=== PATIENT | male | born 1965 | race Caucasian/White ===

== ENCOUNTER 2020-07-23 08:28 | Outpatient (REF) | payer MEDICAID, SELFPAY ==
--- NOTE | 2020-07-23 08:30 | EMG_ITS ---
HISTORY OF PRESENT ILLNESS: This is a 55-year-old with a 6-year history of bilateral upper extremity pain, numbness, and tingling with the right side being worse than the left. He is not diabetic. PHYSICAL EXAMINATION: On examination, he is alert and oriented with normal intellectual functions. Cranial nerves II through XII are normal. Muscle tone and strength are normal in all 4 extremities. Deep tendon reflexes symmetrical, 2+, plantar responses flexor. No Tinel or Phalen sign. IMPRESSION: Rule out carpal tunnel syndrome. NERVE CONDUCTION EMG STUDY: Early carpal tunnel syndrome on the right. Otherwise normal study. Normal EMG of the right C5-T1 innervated muscles. MD GRACIE Ku/VEL / [id number]
== END 2020-07-23 08:29 | disposition home or self-care (01) ==
LOC: HO.NEURO 08:28
PROVIDERS: Visit Provider General Practice
DX: M25.541 Pain in joints of right hand (principal); M25.542 Pain in joints of left hand; M54.2 Cervicalgia; R29.898 Other symptoms and signs involving the musculoskeletal system
CPT/HCPCS: 95860; 95913

== ENCOUNTER 2020-08-05 10:22 | Outpatient (REF) | payer MEDICAID, SELFPAY | END 2020-08-05 10:23 | disposition home or self-care (01) | LOC: HO.LAB 10:22 | PROVIDERS: Visit Provider Internal Medicine | DX: Z20.828 Contact with and (suspected) exposure to other viral communicable diseases (principal) | CPT/HCPCS: 87635 ==

== ENCOUNTER → 2020-09-22 09:37 | Outpatient (BNVA) | payer MEDICAID, SELFPAY | PROVIDERS: PCP Nurse Practitioner Family; Referring Provider Nurse Practitioner Family; Visit Provider Anesthesiology | DX: G89.29 Other chronic pain (principal); M25.511 Pain in right shoulder; M47.812 Spondylosis without myelopathy or radiculopathy, cervical region; M50.30 Other cervical disc degeneration, unspecified cervical region | CPT/HCPCS: 99212 ==

== ENCOUNTER 2020-09-24 14:42 | Outpatient (REF) | payer MEDICAID, SELFPAY | END 2020-09-24 14:43 | disposition home or self-care (01) | LOC: HO.LAB 14:42 | PROVIDERS: PCP Nurse Practitioner Family; Visit Provider Internal Medicine | DX: Z20.828 Contact with and (suspected) exposure to other viral communicable diseases (principal) | CPT/HCPCS: C9803; U0003 ==

== ENCOUNTER 2020-10-01 07:38 | Outpatient (REF) | payer MEDICAID, SELFPAY ==
--- NOTE | 2020-10-01 07:40 | MR_ITS ---
EXAMINATION: MR CERVICAL SPINE WITHOUT CONTRAST CLINICAL INFORMATION: Right shoulder and arm pain. Neck pain. COMPARISON: X-ray cervical spine from 06/24/2020 TECHNIQUE: MRI of the cervical spine was obtained using routine sequences without contrast. Limited study with motion artifacts. FINDINGS: VERTEBRAL BODIES AND PARASPINAL SOFT TISSUES: There is severe disc space narrowing with endplate spurring at the C5-C6 and C6-C7 levels with mild endplate edematous changes as well. No compression fractures identified. There are mild posterior subluxations at both aforementioned levels. Minimal anterolisthesis noted at C7-T1. There is a leftward curvature of the lower cervical spine. The paraspinal soft tissues are unremarkable. The imaged lung apices are grossly clear. CERVICOMEDULLARY JUNCTION AND VISUALIZED POSTERIOR FOSSA: The craniovertebral junction and imaged portions of the brain parenchyma appear normal. No cord signal abnormality or syrinx is seen. SPINAL LEVELS: C2-C3: Mild posterior disc bulge evident without central canal stenosis. Bwuq-xx-hzstfbml facet arthropathy evident. Very mild left foraminal narrowing. C3-C4: Minimal annular bulge without central canal stenosis or significant foraminal encroachment. Pplbksre-av-hjslrs left-sided hypertrophic facet arthropathy. C4-C5: Mild disc bulge and small annular fissure evident with slight impression upon the ventral thecal sac. No central canal stenosis. Mild left foraminal narrowing and facet arthropathy, more so on the left side. C5-C6: Retrosubluxation and broad-based disc-osteophyte complex with severe right foraminal encroachment and uhnvvncg-jw-zuqmun left foraminal narrowing. No significant central canal stenosis. C6-C7: Retrosubluxation and broad-based disc-osteophyte complex without central canal stenosis. Significant bilateral foraminal narrowing. C7-T1: Minimal anterolisthesis and unroofing of the disc with moderate left-sided facet arthropathy and mild left foraminal encroachment. No central canal stenosis. MR/MR cervical spine wo con IMPRESSION: Zvfpkpsb-la-ncivhv degenerative disc disease at C5-C6 and C6-C7 with significant bilateral foraminal narrowing and mild retrosubluxations. No central canal stenosis.
== END 2020-10-01 07:39 | disposition home or self-care (01) ==
LOC: HO.MRI 07:38
PROVIDERS: Visit Provider Anesthesiology
DX: M47.812 Spondylosis without myelopathy or radiculopathy, cervical region (principal); M50.30 Other cervical disc degeneration, unspecified cervical region
CPT/HCPCS: 72141

== ENCOUNTER → 2020-10-09 13:32 | Outpatient (BNVA) | payer MEDICAID, SELFPAY | PROVIDERS: PCP Nurse Practitioner Family; Visit Provider Surgery Vascular Surgery | DX: M25.511 Pain in right shoulder (principal) | CPT/HCPCS: 99202 ==

== ENCOUNTER 2020-10-17 10:00 | Outpatient (RCR) | payer MEDICAID, SELFPAY | END 2020-11-25 14:21 | disposition other institution (70) | LOC: HO.PT 10:00 | PROVIDERS: PCP Nurse Practitioner Family; Visit Provider Nurse Practitioner Family | DX: M25.511 Pain in right shoulder (principal); G89.29 Other chronic pain | CPT/HCPCS: 97033; 97110; 97140; 97162 ==

== ENCOUNTER → 2020-10-21 09:37 | Outpatient (BNVA) | payer MEDICAID, SELFPAY | PROVIDERS: PCP Nurse Practitioner Family; Visit Provider Surgery Vascular Surgery | DX: Z76.89 Persons encountering health services in other specified circumstances (principal) ==

== ENCOUNTER 2020-12-28 15:33 | Emergency (ER) | payer MEDICAID, SELFPAY ==
--- NOTE | 2020-12-28 | ECG_ITS ---
Test Reason : SHORTNESS OF BREATH Blood Pressure : / mmHG Vent. Rate : 063 BPM Atrial Rate : 063 BPM P-R Int : 138 ms QRS Dur : 088 ms QT Int : 410 ms P-R-T Axes : 066 066 072 degrees QTc Int : 419 ms Normal sinus rhythm Normal ECG No significant changes when compared with the previous EKG of 24 oct 2019 Referred By: Generic ED Physician Electronically Signed By:MARA CHRISTENSEN
--- NOTE | ~2020-12-28 | XR_ITS ---
EXAMINATION: XR CHEST CLINICAL INFORMATION: Chest pain COMPARISON: None TECHNIQUE: AP portable view of the chest was obtained. FINDINGS: No significant abnormality is noted involving the heart, lungs, mediastinum, bony thorax or soft tissues. XR/XR chest 1V IMPRESSION: No acute disease.
[2020-12-28 15:48] VITALS: BP 132/93; PULSE 90; RESP 18; TEMP 37.5; O2SAT 97; BMI 29.2
[2020-12-28 16:32] LABS: COVID-19 Test Positive (Negative)
--- NOTE | 2020-12-28 17:04 | ED_ITS ---
HPI - General Adult General Chief complaint: General Medical Stated complaint: WEAKNESS Time Seen by Provider: 12/28/20 16:02 Source: patient Mode of arrival: ambulatory Limitations: no limitations History of Present Illness HPI narrative: 55 yo male here with complaints of body aches, chills, subjective fevers, diarrhea, nausea, cough, chest wall pain with coughing x several days. No SOB, leg swelling or pain. Boss is COVID +. Related Data Home Medications Medication Instructions Recorded Confirmed levetiracetam 1,000 mg tablet 1,000 mg PO BID 09/22/20 Previous Rx's Medication Instructions Recorded albuterol sulfate 2 inh INHALATION Q4-6H PRN #1 ea 12/28/20 Allergies Allergy/AdvReac Type Severity Reaction Status Date / Time SEAFOOD Allergy Unknown SWELLING, Uncoded 06/26/20 19:46 THROAT CLOSES tramadol Allergy Unknown unknown Uncoded 09/22/20 10:09 Review of Systems Review of Systems: Yes all other systems are reviewed and are negative Constitutional: Constitutional: Reports no additional constitutional complaints, Reports body ache(s), Reports chills, Reports fever(s) (subjective ), Reports headache(s) and Denies weakness Eyes: Eyes: Reports no additional eye complaints and Denies change in vision ENT: Reports system reviewed and no additional complaints, except as documented, Denies dizziness, Reports headache(s), Denies nasal congestion, Denies nasal discharge and Denies neck pain Cardiovascular: Cardiovascular: Reports no additional cardiovascular complaints, Reports chest pain, Denies leg edema and Denies dyspnea Respiratory: Respiratory: Reports no additional respiratory complaints, Denies cough and Denies dyspnea Gastrointestinal: Gastrointestinal: Reports no additional gastrointestinal complaints, Denies abdominal pain, Reports diarrhea, Denies nausea and Denies vomiting Genitourinary: Genitourinary: Denies urinary incontinence Musculoskeletal: Musculoskeletal: Reports no additional musculoskeletal complaints, Denies back pain, Denies arthralgias, Denies joint swelling, Denies neck pain, Denies numbness and Denies tingling Integumentary/Breasts: Skin/Breast: Reports system reviewed and no additional complaints, except as docu and Denies rash Neurologic: Reports system reviewed and no additional complaints, except as documented, Denies Abnormal speech present, Denies dizziness, Reports headache(s), Denies numbness, Denies tingling and Denies weakness COUNTS INCLUDE 234 BEDS AT THE [facility] Past Medical History Attestation statement: The following information was validated with the patient. Source: old records reviewed and nursing notes reviewed Medical History Degeneration of intervertebral disc of cervical spine without disc herniation Degenerative disc disease, cervical Epilepsy Spondylosis of cervical spine Thoracic outlet syndrome of right thoracic outlet Social History Social History Smoking Status: Current some day smoker Tobacco Type: Cigarette Advance Directives: No Advance Directives Information Provided: No Physical Exam Vital Signs: Vital Signs: Last Vital Signs Temp 99.5 F 12/28/20 15:48 Pulse 90 12/28/20 15:48 Resp 18 12/28/20 15:48 BP 132/93 H 12/28/20 15:48 Pulse Ox 97 12/28/20 15:48 Body Mass Index 29.2 Const: General: cooperative, healthy appearing, comfortable and no acute distress Orientation/consciousness: patient oriented x3 Limitations: no limitations HENMT: Head: Yes normal to inspection Ears: hearing grossly normal bilaterally General nose exam: Normal external nose present Face and sinus: Yes normal facial exam Mouth: Normal oral and palatal mucosa present Throat: Yes posterior oropharynx normal Eyes: General: appearance normal, both eyes and all related structures Pupils: Equal, round and reactive pupils present Neck: Neck: Yes normal visual inspection Chest: Chest palpation & inspection: normal inspection of the chest Resp: Effort & Inspection: normal respiratory effort Auscultation: clear to auscultation bilaterally Cardio: Other: chest wall discomfort with coughing, tender to palp Rate: regular rate Rhythm: regular rhythm Peripheral pulses: Peripheral pulses 2+ throughout GI: Inspection: Yes normal to inspection Palpation (GI): Soft to palpation and nontender Auscultation: normal bowel sounds Back/Spine/Pelvis: Thoracic/Lumbar Spine: thoracic and lumbar spine normal to inspection Skin: General skin exam: no rashes or lesions noted Neuro: General: patient oriented x3, no focal motor deficits and normal sensation to monofilament Cranial nerves: Yes Equal, round and reactive pupils present Cognition (Neuro): normal cognition Speech: No Abnormal speech present Gait exam (Neuro): Normal gait present Motor exam (neuro): 5/5 motor strength present throughout Extrem: General: Yes normal to inspection, Yes no pedal edema and Yes no calf tenderness Course Course Course Narrative: 55 yo male with flu like symptoms x 1 week. +covid exposure at work. Well appearing, stable vital signs. Will check COVID screen, CXR, EKG. 1705-Covid +. CXR unremarkable. EKG shows no ischemic changes. PERC score 1 for age. Reviewed worrisome signs/symptoms with patient and when to return to ED. Comfortable with discharge home. Medical Decision Making Medical Records Medical records reviewed: Yes I reviewed the patient's medical records. Lab Data Lab results reviewed: Yes I reviewed the patient's lab results. Labs: Lab Results 12/28/20 Range/Units 15:59 COVID-19 (CLEM) Positive A (Negative) COVID-19 Clin Com See Note Imaging Data Chest x-ray: Attestation: I personally reviewed and interpreted this imaging study as follows: Radiologist's impression: [address] [id number] ReportSigned Patient: Ministerio Hernandez AMR#: [id number]: 1965Acct:[id number]/Sex: 55 / MADM Date: 12/28/20Loc: HO.EDAttending Dr: Ordering Physician: Masha ED Physician Date of Service: 12/28/20 Procedure(s): XR chest 1V Accession Number(s): [id number] cc: Generic ED Physician~ EXAMINATION: XR CHEST CLINICAL INFORMATION: Chest pain COMPARISON: None TECHNIQUE: AP portable view of the chest was obtained. FINDINGS: No significant abnormality is noted involving the heart, lungs, mediastinum, bony thorax or soft tissues. XR/XR chest 1V IMPRESSION: No acute disease. ECG Data Attestation: I personally reviewed and interpreted this ECG as follows: Interpretation: NSR, normal pr, normal qrs, normal qt Discharge Plan Discharge Clinical Impression: COVID-19 Patient Disposition: Home, Self-Care Instructions: COVID-19 (Coronavirus Disease 2019) (ED) Additional Instructions: Alternate motrin/tylenol for pain or fever Increase fluids, rest You MUST self quarentine x 10 days per the CDC Return for worsening SOB, fever >100.4 if does not respond to motrin or tylenol, worsening chest pain, 2 or more vomiting episodes Prescriptions: New albuterol sulfate 90 mcg/actuation aerosol powdr breath activated 2 inh inhalation Q4-6H PRN (Reason: shortness of breath or wheezing) Qty: 1 RF: 0 Referrals: [place],[facility] [Primary Care Provider] - 2 days Stand Alone Forms: Work/School Release Interventions: ED Discharge Assessment Last Done: 12/28/20 17:48 Discharge Date/Time: 12/28/20 17:48 Print Language: Serbian
== END 2020-12-28 17:48 | disposition home or self-care (01) ==
PROVIDERS: Emergency Provider Internal Medicine
DX: U07.1 COVID-19 (principal); R53.1 Weakness; R50.9 Fever, unspecified; F17.210 Nicotine dependence, cigarettes, uncomplicated
CPT/HCPCS: 36415; 71045; 87635; 93005; 99283

== ENCOUNTER 2021-04-21 11:52 | Outpatient (REF) | payer MEDICAID, SELFPAY ==
--- NOTE | ~2021-04-21 | XR_ITS ---
EXAMINATION: XR KNEE, LEFT XR ANKLE, RIGHT CLINICAL INFORMATION: Left knee pain. Right ankle effusion. COMPARISON: None TECHNIQUE: AP, tunnel, lateral, and sunrise views of the left knee. AP, mortise, and lateral views of the right ankle. FINDINGS: LEFT KNEE: No acute fracture or dislocation. No joint space narrowing or marginal osteophytes. No osseous erosion. No abnormal soft tissue calcification. No significant joint effusion. RIGHT ANKLE: No acute fracture or dislocation. The ankle mortise is maintained. Tiny tibiotalar marginal osteophytes. No lytic or blastic osseous lesion. Os trigonum. XR/XR knee LT 4V IMPRESSION: Left knee: Unremarkable examination. Right ankle: Minimal degenerative arthritis.
--- NOTE | ~2021-04-21 | XR_ITS ---
EXAMINATION: XR KNEE, LEFT XR ANKLE, RIGHT CLINICAL INFORMATION: Left knee pain. Right ankle effusion. COMPARISON: None TECHNIQUE: AP, tunnel, lateral, and sunrise views of the left knee. AP, mortise, and lateral views of the right ankle. FINDINGS: LEFT KNEE: No acute fracture or dislocation. No joint space narrowing or marginal osteophytes. No osseous erosion. No abnormal soft tissue calcification. No significant joint effusion. RIGHT ANKLE: No acute fracture or dislocation. The ankle mortise is maintained. Tiny tibiotalar marginal osteophytes. No lytic or blastic osseous lesion. Os trigonum. XR/XR ankle RT min 3V IMPRESSION: Left knee: Unremarkable examination. Right ankle: Minimal degenerative arthritis.
== END 2021-04-21 11:53 | disposition home or self-care (01) ==
LOC: HO.XRAY 11:52
PROVIDERS: PCP Nurse Practitioner Family; Visit Provider Nurse Practitioner Family
DX: M25.471 Effusion, right ankle (principal); M25.562 Pain in left knee
CPT/HCPCS: 73564; 73610

== ENCOUNTER 2021-07-08 08:03 | Outpatient (REF) | payer MEDICAID, SELFPAY ==
--- NOTE | ~2021-07-08 | XR_ITS ---
EXAMINATION: XR KNEE, RIGHT XR KNEE AP STANDING CLINICAL INFORMATION: Right knee pain. COMPARISON: Left knee radiographs dated 04/21/2021. TECHNIQUE: Lateral and axial merchant views of the of the right knee are submitted. AP bilateral standing view of the knees was obtained. FINDINGS: Bony alignment and mineralization are normal. The lateral, medial and patellofemoral joint space compartments of the right knee are well-maintained. There is very mild tricompartment peripheral osteophyte formation of the right knee. There is no right knee fracture, dislocation or joint effusion. The soft tissue planes are unremarkable, without foreign body. Frontal view of the left knee is within normal normal limits, with well maintained lateral and medial joint space compartments. No significant varus or valgus configuration is seen bilaterally. XR/XR knee RT 2V IMPRESSION: 1. There is very mild tricompartment osteoarthritic change of the right knee. 2. No unusual degenerative change is seen of the left knee on AP view. 3. No fracture or dislocation is seen. 3. No varus or valgus configuration is seen bilaterally.
--- NOTE | ~2021-07-08 | XR_ITS ---
EXAMINATION: XR KNEE, RIGHT XR KNEE AP STANDING CLINICAL INFORMATION: Right knee pain. COMPARISON: Left knee radiographs dated 04/21/2021. TECHNIQUE: Lateral and axial merchant views of the of the right knee are submitted. AP bilateral standing view of the knees was obtained. FINDINGS: Bony alignment and mineralization are normal. The lateral, medial and patellofemoral joint space compartments of the right knee are well-maintained. There is very mild tricompartment peripheral osteophyte formation of the right knee. There is no right knee fracture, dislocation or joint effusion. The soft tissue planes are unremarkable, without foreign body. Frontal view of the left knee is within normal normal limits, with well maintained lateral and medial joint space compartments. No significant varus or valgus configuration is seen bilaterally. XR/XR knee standing BI IMPRESSION: 1. There is very mild tricompartment osteoarthritic change of the right knee. 2. No unusual degenerative change is seen of the left knee on AP view. 3. No fracture or dislocation is seen. 3. No varus or valgus configuration is seen bilaterally.
== END 2021-07-08 08:04 | disposition home or self-care (01) ==
LOC: HO.HOSX 08:03
PROVIDERS: PCP Nurse Practitioner Family; Visit Provider Physician Assistant
DX: M25.361 Other instability, right knee (principal); M25.562 Pain in left knee
CPT/HCPCS: 20610; 73560; 73565; 99202; J1040

== ENCOUNTER → 2021-08-17 11:19 | Outpatient (REF) | payer MEDICAID, SELFPAY ==
--- NOTE | 2021-08-17 11:24 | ECG_ITS ---
Test Reason : hyperlidemia Blood Pressure : / mmHG Vent. Rate : 061 BPM Atrial Rate : 061 BPM P-R Int : 144 ms QRS Dur : 092 ms QT Int : 412 ms P-R-T Axes : 065 070 077 degrees QTc Int : 414 ms Normal sinus rhythm Normal ECG When compared with ECG of 28-DEC-2020 17:08, No significant change was found Referred By: Rayne Bolivar Electronically Signed By:SUMMER FOX MD
== END ==
LOC: HO.CARD 11:19
PROVIDERS: PCP Nurse Practitioner Primary Care; Visit Provider Nurse Practitioner Primary Care
DX: Z00.00 Encounter for general adult medical examination without abnormal findings (principal); E78.5 Hyperlipidemia, unspecified
CPT/HCPCS: 93005

== ENCOUNTER 2021-08-27 10:00 | Outpatient (RCR) | payer MEDICAID, SELFPAY ==
--- NOTE | 2021-07-27 15:29 | MHC.PT.EP ---
[facility] [place] Office [place] Office [place] Office [address] Louisa Charles [address] [phone] F: [phone] F: [phone] F: [phone] F: [phone] Physical Therapy Plan of Care Date of Evaluation: Date of Surgery: n/a Diagnosis: Instability of R knee Assessment: Patient is a 56 year old male presenting to PT with complaints of pain in his R knee. Pt reports onset of pain began originally about 6 years ago with insidious onset but possibly due to martial arts. He presents today with impairments in pain, knee strength, hip strength, and numbness/tingling. Pt's current occupation is none at this time, with baseline physical activities including ambulation, standing, ADLs, stair negotiation, squatting. 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 Clinical presentation today is somewhat unclear at this time as he is complaining of numbness and tingling in BLE but also has localized pain to his B knees that can be reproduced with palpation as above. Pt appears to be presenting with radicular pain from his low back as well as localized knee pain. At this time will focus on localized knee pain as that is what he is referred to PT for. Pt will benefit from skilled PT to address the following problems and impairments noted upon evaluation: pain, knee strength, hip strength, and numbness/tingling. These problems limit the patient with the following functional activities: ambulation, standing, ADLs, stair negotiation, squatting. The prescribed treatment plan of care is medically necessary. Co-morbidities of epilepsy were identified and taken into considerations of plan of care. Pt was educated on HEP, role of PT, prognosis, POC. Frequency and Duration: The patient will be seen 2x week x 4 weeks Short Term Goals: Pt will demonstrate decreased pain at rest to <4/10 in 2 weeks for improved QOL. Pt will demonstrate improved knee strength by 1/3 MMT in 2 weeks. Pt will demonstrate improved hip strength by 1/3 MMT in 2 weeks for improved lumbopelvic stability. Wash Test Checker Goals: Pt will demonstrate improved ability to ambulate with good step length B and min to no antalgic pattern with SC in 4 weeks for improved efficiency with community ambulation. Pt will demonstrate improved ability to negotiate stairs in 4 weeks for improved access to his home. Pt will demonstrate improved ability to squat to brass pickler items off the floor with min to no pain in 4 weeks. Pt will demonstrate improved LEFI score by 9 points for improved functional mobility in 4 weeks. Treatment Plan: Modalities to reduce pain, spasms and effusion. Manual therapy to restore motion and function. Therapeutic exercise to improve strength and flexibility. Neuromuscular re-education for posture and balance. Therapeutic activities to return to functional activities of daily living. Electronically signed by: Kelsi Magana, PT, DPT, ATC Please sign and return to therapist. Thank you for your referral.
--- NOTE | 2021-09-09 17:29 | MHC.PT.DC ---
[facility] [place] Office [place] Office [place] Office [address] Louisa Charles [address] [phone] F: [phone] F: [phone] F: [phone] F: [phone] Physical Therapy Discharge Report Diagnosis: Instability of R knee Date of Surgery: n/a Date of Evaluation: 07/27/21 Date of Discharge: 09/09/21 Treatments to Date: 6 Cancellations to Date: 2 No Shows to Date: 2 Discharge Status: Improved Function Discharge Summary: Pt was seen for his final appointment with PT. He continues to have pain however is demonstrating improvements in function based on last PT note therefore pt to be d/c to independent HEP at this time and to follow up with MD as needed. Electronically signed by: Kelsi Magana, PT, DPT, ATC Please sign and return to therapist. Thank you for your referral.
== END 2021-09-09 17:29 | disposition home or self-care (01) ==
LOC: HO.PT 10:00
PROVIDERS: PCP Nurse Practitioner Primary Care; Visit Provider Physician Assistant
DX: M25.361 Other instability, right knee (principal)
CPT/HCPCS: 97110; 97161; 97162; 97530

== ENCOUNTER 2021-10-18 01:18 | Emergency (ER) | payer MEDICAID, SELFPAY ==
[2021-10-18 01:27] VITALS: BP 133/90; BP 141/86; PULSE 75; PULSE 82; RESP 20; TEMP 36.8; O2SAT 96; O2SAT 98; BMI 27.4
--- NOTE | 2021-10-18 02:22 | PC.NURSE ---
pt is walking around in waiting room with a steady gait, no sign of distress at this time.
[2021-10-18 02:53] VITALS: BP 140/88; PULSE 78; RESP 15; TEMP 36.8; O2SAT 96
== END 2021-10-18 04:03 | disposition left against medical advice (07) ==
PROVIDERS: Emergency Provider Emergency Medicine
DX: M25.512 Pain in left shoulder (principal); G89.18 Other acute postprocedural pain
CPT/HCPCS: 99282; 99284

== ENCOUNTER 2022-02-08 09:52 | Outpatient (REF) | payer MEDICAID, SELFPAY ==
--- NOTE | ~2022-02-08 | XR_ITS ---
EXAMINATION: XR KNEE, LEFT CLINICAL INFORMATION: Osteoarthritis COMPARISON: None TECHNIQUE: Four views of the left knee. FINDINGS: No evidence of fracture or dislocation. Small suprapatellar joint fluid.. Alignment is anatomic. Joint spaces are well maintained. No abnormal soft tissue calcification. XR/XR knee LT 4V IMPRESSION: No evidence of acute osseous abnormality.
== END 2022-02-08 09:53 | disposition home or self-care (01) ==
LOC: HO.XRAY 09:52
PROVIDERS: Absent Provider Nurse Practitioner Primary Care; PCP Nurse Practitioner Primary Care; Visit Provider Internal Medicine
DX: M17.12 Unilateral primary osteoarthritis, left knee (principal)
CPT/HCPCS: 73564

== ENCOUNTER → 2022-03-04 10:20 | Outpatient (BNVA) | payer MEDICAID, SELFPAY | PROVIDERS: PCP Nurse Practitioner Primary Care; Visit Provider Orthopaedic Surgery | DX: M25.462 Effusion, left knee (principal) | CPT/HCPCS: 99202 ==

== ENCOUNTER 2022-03-16 11:26 | Outpatient (REF) | payer MEDICAID, SELFPAY ==
--- NOTE | ~2022-03-16 | MR_ITS ---
EXAMINATION: MR KNEE WITHOUT CONTRAST, LEFT CLINICAL INFORMATION: Effusion left knee. COMPARISON: X-ray the left knee 02/08/2022. TECHNIQUE: MRI of the knee without contrast was performed using routine sequences on a high-field scanner. FINDINGS: MENISCI: Medial Meniscus: There is oblique increased signal in the posterior horn and posterior body indicative of meniscal tear. There is a meniscal cyst associated with this tear along the margin of the posterior horn and body. The cyst measures 15 mm AP and 5 mm craniocaudal and 3 mm transverse. Lateral Meniscus: There is increased signal near and possibly extending to the femoral articular surface of the anterior horn. Findings suspicious but not definitive for tear. This could reflect prominent grade 2 signal. LIGAMENTS: Cruciate: Intact. Collateral: Intact. EXTENSOR MECHANISM: Intact. ARTICULAR CARTILAGE/BONE: Patellofemoral Compartment: There is a high-grade fissure in the lateral facet of the patella. The trochlea is normal. Overall mild patellofemoral arthrosis, axial. Medial Compartment: Normal. Lateral Compartment: Normal. JOINT FLUID AND BURSAE: Trace Suresh's cyst. MR/MR knee LT wo con IMPRESSION: Tear of the medial meniscus with a small meniscal cyst. Possible tear anterior horn lateral meniscus. Mild arthrosis of the patellofemoral compartment.
== END 2022-03-16 11:27 | disposition home or self-care (01) ==
LOC: HO.MRI 11:26
PROVIDERS: Visit Provider Orthopaedic Surgery
DX: M25.462 Effusion, left knee (principal)
CPT/HCPCS: 73721

== ENCOUNTER → 2022-03-29 11:18 | Outpatient (BNVA) | payer MEDICAID, SELFPAY | PROVIDERS: PCP Nurse Practitioner Primary Care; Visit Provider Orthopaedic Surgery | DX: S83.207A Unspecified tear of unspecified meniscus, current injury, left knee, initial encounter (principal) | CPT/HCPCS: 99212 ==

== ENCOUNTER → 2022-04-23 12:13 | Outpatient (BNVA) | payer MEDICAID, SELFPAY | PROVIDERS: PCP Nurse Practitioner Primary Care; Visit Provider Physician Assistant | DX: M25.571 Pain in right ankle and joints of right foot (principal); G89.29 Other chronic pain | CPT/HCPCS: 99202 ==

== ENCOUNTER 2022-05-05 09:09 | Outpatient (REF) | payer MEDICAID, SELFPAY ==
--- NOTE | 2022-05-05 09:50 | PFT_ITS ---
FLOWS: FEV1 110% of predicted at 3.42 L. FVC 113% of predicted at 4.57 L. FEV1 to FVC ratio of 0.75. No bronchodilator response. LUNG VOLUMES: Total lung capacity 111% of predicted at 6.66 L. Residual volume 117% of predicted at 2.22 L. Slow vital capacity 108% of predicted at 4.44 L. Expiratory reserve volume 93% of predicted at 1.05 L. Diffusion capacity is normal. IMPRESSION: No obstructive or restrictive ventilatory defect. No bronchodilator response. Essentially normal pulmonary function test. Sudarshan Malave MD AP/MODL / [id number]
== END 2022-05-05 09:10 | disposition home or self-care (01) ==
LOC: HO.RESP 09:09
PROVIDERS: Absent Provider Internal Medicine; PCP Nurse Practitioner Primary Care; Visit Provider Nurse Practitioner Primary Care
DX: J45.30 Mild persistent asthma, uncomplicated (principal); M25.531 Pain in right wrist; R29.898 Other symptoms and signs involving the musculoskeletal system
CPT/HCPCS: 94060; 94727; 94729

== ENCOUNTER 2022-05-12 05:46 | Day surgery (SDC) | payer MEDICAID, SELFPAY ==
--- NOTE | 2022-05-11 09:45 | HO.ANESPROP2 ---
Documented by User: Enedina Camacho NP 05/11/22 09:50 HPI - Anesthesia Eval Consult details Narrative: 56yo M for Knee Arthroscopy PMFSH Active Problems Active Problems: All Active Problems (Updated 05/06/22 @ 15:57 by Renae Ro RN) Right shoulder pain (Acute) COVID-19 (Acute) Right knee buckling (Acute) Effusion, left knee (Acute) Tear of meniscus of left knee (Acute) Chronic pain of right ankle (Acute) Degenerative disc disease, cervical (Acute) Thoracic outlet syndrome of right thoracic outlet (Acute) Degeneration of intervertebral disc of cervical spine without disc herniation (Acute) Spondylosis of cervical spine (Acute) Past Medical History Medical History Anxiety and depression Arthritis Asthma Chronic back pain COVID-19 Degeneration of intervertebral disc of cervical spine without disc herniation Degenerative disc disease, cervical Epilepsy GERD (gastroesophageal reflux disease) History of stroke JAGJIT on CPAP PUD (peptic ulcer disease) Spondylosis of cervical spine Surgical History Surgical History Hx of cervical spine surgery Hx of colonoscopy Hx of esophagogastroduodenoscopy Social History Social History Alcohol intake: never Patient Tobacco Use Status: Current everyday Tobacco user Tobacco use type: Cigarette Cigarettes Per Day: 10 Current occupational status: employed and disabled 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 Meds Allergies Allergy/AdvReac Type Severity Reaction Status Date / Time SEAFOOD Allergy Unknown SWELLING, Uncoded 05/12/22 06:14 THROAT CLOSES Home Medications Medication Instructions Recorded Confirmed Last Taken Type levetiracetam 1,000 mg tablet 1,000 mg PO BID 09/22/20 05/06/22 Unknown History (Keppra) Vitamin D3 05/06/22 Unknown History acetaminophen 500 mg tablet 1,000 mg PO Q6H PRN Pain 05/06/22 05/06/22 Unknown History albuterol sulfate 0.63 mg/3 mL 1 amp inhalation Q4-6H PRN wheezing 05/06/22 05/06/22 Unknown History solution for nebulization diclofenac sodium 1 % topical gel 2 g topical QID 05/06/22 05/06/22 Unknown History fluticasone propionate 110 1 puff inhalation BID 05/06/22 05/06/22 Unknown History mcg/actuation HFA aerosol inhaler (Flovent HFA) fluticasone propionate 50 2 spray intranasal DAILY 05/06/22 05/06/22 Unknown History mcg/actuation nasal spray,suspension Exam Exam Date and Time: May 11, 2022 0945 Assessment and Plan Assessment Anesthesia Assessment: Chart Reviewed Documented by User: Taj Olivas MD 05/12/22 15:41 HPI - Anesthesia Eval Consult details Narrative: 56yo M for Knee Arthroscopy, left CVA , 10 years ago , right sided weakness tingling and numbness upper and lower extremities PMFSH Past Medical History Medical History Anxiety and depression Arthritis Asthma Chronic back pain COVID-19 Degeneration of intervertebral disc of cervical spine without disc herniation Degenerative disc disease, cervical Epilepsy GERD (gastroesophageal reflux disease) History of stroke JAGJIT on CPAP PUD (peptic ulcer disease) Spondylosis of cervical spine Family History Family history of problems with anesthesia: No Surgical History Surgical History Hx of cervical spine surgery Hx of colonoscopy Hx of esophagogastroduodenoscopy History of Problems with Anesthesia: No Social History Social History Alcohol intake: never Patient Tobacco Use Status: Current everyday Tobacco user Tobacco use type: Cigarette Cigarettes Per Day: 10 Current occupational status: employed and disabled 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 Meds Allergies Allergy/AdvReac Type Severity Reaction Status Date / Time SEAFOOD Allergy Unknown SWELLING, Uncoded 05/12/22 06:14 THROAT CLOSES Home Medications Medication Instructions Recorded Confirmed Last Taken Type levetiracetam 1,000 mg tablet 1,000 mg PO BID 09/22/20 05/06/22 Unknown History (Keppra) Vitamin D3 05/06/22 Unknown History acetaminophen 500 mg tablet 1,000 mg PO Q6H PRN Pain 05/06/22 05/06/22 Unknown History albuterol sulfate 0.63 mg/3 mL 1 amp inhalation Q4-6H PRN wheezing 05/06/22 05/06/22 Unknown History solution for nebulization diclofenac sodium 1 % topical gel 2 g topical QID 05/06/22 05/06/22 Unknown History fluticasone propionate 110 1 puff inhalation BID 05/06/22 05/06/22 Unknown History mcg/actuation HFA aerosol inhaler (Flovent HFA) fluticasone propionate 50 2 spray intranasal DAILY 05/06/22 05/06/22 Unknown History mcg/actuation nasal spray,suspension Exam Airway Mallampati Class: III TM Dist: >3cm Neck ROM: Full Loose/Missing/Broken Teeth: Yes (Chipped teeth , poor dentition ) Heart: S1,S2 Lungs: b/l breath sounds Assessment and Plan Assessment Anesthesia Assessment: Anesthesia Plan Discussed Final Anesthetic Review Family History of Problems with Anesthesia: No History of Problems with Anesthesia: No NPO: Yes ASA Class: III Final Preanesthetic Review: Meds/Allgs Chart Reviewed, Consent Obtained/Reviewed and Anes Risks/Benef Reviewed Patient Risk: Intermediate Procedure Risk: Intermediate Anesthetic Plan Anesthetic Plan: GA Disposition: Standard PACU
[2022-05-12] VITALS (10 sets, daily range): BP systolic 103–132; BP diastolic 68–91; PULSE 65–70; RESP 15–18; TEMP 36.1–36.8; O2SAT 94–99; BMI 26.6
[2022-05-12] MEDS: Lactated Ringers 1,000 ML 100 ML IVCONT (06:33)
--- NOTE | 2022-05-12 07:36 | MHC.SHP ---
Pre-Procedural Eval Section A Date of Service: 05/12/22 The patient is an INPATIENT: No Changes since office visit: Yes Patient answered all questions The History & Physical has been completed within 30 days and I have reviewed it.: Yes Section B Chief Complaint: meniscus tear Allergies: Allergies Allergy/AdvReac Type Severity Reaction Status Date / Time SEAFOOD Allergy Unknown SWELLING, Uncoded 05/12/22 06:14 THROAT CLOSES Plan I have reviewed the history and physical and performed a pertinent physical examination on my patient. No changes have occurred unless specified.
--- NOTE | 2022-05-12 08:13 | PM.OP ---
Brief Operative Note Date of Service: 05/12/22 Pre-op diagnosis: left knee MMT Post-op diagnosis: same Procedure: Leftk nee partial medial meniscectomy Implants: none Surgeon: Deng Cloud MD Anesthesia: GETA and local Was an Newspaper Inserter used for this Procedure?: No Estimated blood loss (mL): 5 IV fluids (mL): 500 Pathology: none sent Condition: stable Disposition: PACU
[2022-05-12] MEDS: HYDROmorphone HCl 0.5 MG/0.5 ML SYRINGE 0.25 MG IVPUSH ×2 (08:53→09:08)
[2022-05-12] MEDS: oxyCODONE HCl Immed Release 5 MG TABLET PO (08:54)
[2022-05-12] MEDS: levETIRAcetam 1,000 MG TABLET 1000 MG PO (09:21)
--- NOTE | 2022-05-12 10:48 | P.OP_ITS ---
Operative Note Operative Note Date of Service: 05/12/22 Narrative: Date of Service: 05/12/22 Pre-op diagnosis: left knee MMT Post-op diagnosis: same Procedure: Leftk blake partial medial meniscectomy Implants: none Surgeon: Deng Cloud MD Anesthesia: GETA and local Was an Individual Small Group Instructor used for this Procedure?: No Estimated blood loss (mL): 5 IV fluids (mL): 500 Pathology: none sent Condition: stable Disposition: PACU Procedure in detail: Patient was brought to the operating room placed supine on the arthroscopic table and prepped and draped in standard sterile fashion. A time-out was called to identify proper site proper procedure proper surgeon and IV antibiotics per weight were administered. I began by exsanguinating the limb and insufflating tourniquet to 300 mm Hg. Then made a standard anterolateral stab incision. knee was insufflated with water and 30 degree arthroscope was placed. There was grade 1 fibrillations of the patella but overall suprapatellar pouch was plane and the gutters were clean. I descended into the medial compartment where I made my medial portal under direct visualization. There was obvious of complex tear of the body and posterior horn of the medial meniscus. Root was intact and there was grade 1 changes with some scattered grade 2 changes throughout the medial compartment. I used a combination of biter shaver and cautery to remove unstable portions of the meniscus. Approximately 60% meniscal volume was removed. Once I was happy with this the ACL was examined and found to be intact and the lateral compartment also was without the need for intervention. I then removed all instrumentation and closed the portals with skin glue. 25 mL of 2% Marcaine with epinephrine was injected into the joint and the surrounding soft tissues. Patient was then placed in sterile dressing extubated brought recovery room stable condition. There were no known complications.
== END 2022-05-12 09:40 | disposition home or self-care (01) ==
PROVIDERS: PCP Nurse Practitioner Primary Care; Visit Provider Orthopaedic Surgery
PROC: (CPT 29870; principal; 2022-05-12 07:30)
DX: S83.232A Complex tear of medial meniscus, current injury, left knee, initial encounter (principal); M17.12 Unilateral primary osteoarthritis, left knee; R26.89 Other abnormalities of gait and mobility; M25.462 Effusion, left knee; X50.1XXA Overexertion from prolonged static or awkward postures, initial encounter; Y93.9 Activity, unspecified; Y92.9 Unspecified place or not applicable; Y99.8 Other external cause status; G40.909 Epilepsy, unspecified, not intractable, without status epilepticus; G47.33 Obstructive sleep apnea (adult) (pediatric); Z99.89 Dependence on other enabling machines and devices; Z79.899 Other long term (current) drug therapy; Z88.8 Allergy status to other drugs, medicaments and biological substances; F17.210 Nicotine dependence, cigarettes, uncomplicated
CPT/HCPCS: 29881; J0171; J0690; J1100; J1170; J2250; J2405; J2795; J3010

== ENCOUNTER → 2022-07-06 08:57 | Outpatient (BNVA) | payer MEDICAID, SELFPAY | PROVIDERS: PCP Nurse Practitioner Primary Care; Visit Provider Student in an Organized Health Care Education/Training Program | DX: M25.541 Pain in joints of right hand (principal); M25.542 Pain in joints of left hand; M25.371 Other instability, right ankle; G56.01 Carpal tunnel syndrome, right upper limb; M79.10 Myalgia, unspecified site; M25.571 Pain in right ankle and joints of right foot | CPT/HCPCS: 99202 ==

== ENCOUNTER 2022-07-12 11:21 | Outpatient (REF) | payer MEDICAID, SELFPAY ==
--- NOTE | ~2022-07-12 | XR_ITS ---
EXAMINATION: XR BILATERAL HAND AND WRIST CLINICAL INFORMATION: Pain. COMPARISON: Previous x-ray November 2019. TECHNIQUE: 4 views of the left hand and wrist. FINDINGS: Left: Bone alignment is normal. No fracture or dislocation is seen. There is arthritis at the 1st USP joint with joint space narrowing and osteophyte formation. There are soft tissue ossifications projecting over the volar distal forearm proximal wrist. Right: Bone alignment is normal. No acute fracture or dislocation is seen. There is question of an old ulnar styloid fracture versus accessory ossification center. This is unchanged. There is mild arthritis at the 1st USP joint and MCP joints with small osteophytes. Soft tissues are normal. XR/XR hand wrist LT IMPRESSION: Bilateral thumb arthritis.
--- NOTE | ~2022-07-12 | XR_ITS ---
EXAMINATION: XR BILATERAL HAND AND WRIST CLINICAL INFORMATION: Pain. COMPARISON: Previous x-ray November 2019. TECHNIQUE: 4 views of the left hand and wrist. FINDINGS: Left: Bone alignment is normal. No fracture or dislocation is seen. There is arthritis at the 1st USP joint with joint space narrowing and osteophyte formation. There are soft tissue ossifications projecting over the volar distal forearm proximal wrist. Right: Bone alignment is normal. No acute fracture or dislocation is seen. There is question of an old ulnar styloid fracture versus accessory ossification center. This is unchanged. There is mild arthritis at the 1st USP joint and MCP joints with small osteophytes. Soft tissues are normal. XR/XR hand wrist RT IMPRESSION: Bilateral thumb arthritis.
[2022-07-12 11:47] LABS: MANUAL DIFF FLAG NO
[2022-07-12 11:59] LABS: Basophils Absolute Auto 0.1 X10*3/uL (0.0-0.2); Basophils Percent Auto 0.8 % (0-2); Eosinophils Absolute Auto 0.3 X10*3/uL (0.0-0.4); Eosinophils Percent Auto 4.2 % (0-4); Hematocrit 46.6 % (42.0-52.0); Hemoglobin 14.8 g/dl (14.0-18.0); Imm Gran Abs Auto 0.01 X10*3/uL (0.00-0.03); Imm Gran Pct Auto 0.2 % (0.0-0.4); Lymphocytes Absolute Auto 1.5 X10*3/uL (1.2-4.9); Lymphocytes Percent Auto 25.8 % (20-40); Mean Corpuscular HGB Conc 31.8 g/dl (31.0-36.0); Mean Corpuscular Hemoglobin 30.8 pg (27.0-33.0); Mean Corpuscular Volume 96.9 fL (80.0-98.0); Mean Platelet Volume 9.5 fL (9.4-12.4); Monocytes Absolute Auto 0.6 X10*3/uL (0.1-1.2); Monocytes Percent Auto 9.2 % (2-11); Neutrophils Absolute Auto 3.6 x10*3/uL (2.0-8.3); Neutrophils Percent Auto 59.8 % (45-73); Platelet Count 340 X10*3/uL (160-400); Red Blood Count 4.81 X10*6/uL (4.60-5.80); Red Cell Distribution Width 12.9 % (11.0-16.0)
[2022-07-12 12:32] LABS: Erythrocyte Sedimentation Rate 25 MM/HR (0-15)
[2022-07-12 12:49] LABS: Alanine Aminotransferase 12 U/L (0-40); Albumin Level 4.3 g/dL (3.5-5.0); Alkaline Phosphatase 92 U/L (39-117); Anion Gap 13 (12-20); Aspartate Amino Transferase 14 U/L (5-37); Bilirubin Total 0.2 mg/dL (0.0-1.0); Blood Urea Nitrogen 15 mg/dL (9-16); C Reactive Protein 1.25 mg/dL (< or = 0.50); Calcium 9.6 mg/dL (8.4-10.2); Carbon Dioxide 30 mmol/L (22-29); Chloride 104 mmol/L (96-108); Estimated Glomerular Filt Rate > 60; Glucose Random 97 mg/dL (60-115); Potassium 4.8 mmol/L (3.3-5.1); Sodium 142 mmol/L (135-145); Total Protein 7.2 g/dL (6.5-8.0); Uric Acid 2.8 mg/dL (3.4-7.0)
[2022-07-12 12:58] LABS: Rheumatoid Factor < 15.0 IU/mL (<15.0)
[2022-07-14 11:27] LABS: Cyclic Citrullinated Peptide <16 UNITS
[2022-07-14 19:27] LABS: Anti Nuclear Antibody Screen NEGATIVE (NEGATIVE)
[2022-07-17 15:36] LABS: Vitamin D 25-OH, D2 <4 ng/mL; Vitamin D 25-OH, D3 30 ng/mL; Vitamin D 25-OH, Total 30 ng/mL (30-100)
== END 2022-07-12 11:22 | disposition home or self-care (01) ==
LOC: HO.LAB 11:21
PROVIDERS: Visit Provider Student in an Organized Health Care Education/Training Program
DX: M25.542 Pain in joints of left hand (principal); M25.541 Pain in joints of right hand; M79.10 Myalgia, unspecified site; Z13.21 Encounter for screening for nutritional disorder
CPT/HCPCS: 36415; 73110; 73130; 80053; 82306; 82550; 84550; 85025; 85652; 86038; 86039; 86140; 86200; 86431

== ENCOUNTER 2022-08-05 10:00 | Outpatient (RCR) | payer MEDICAID, SELFPAY ==
--- NOTE | 2022-06-22 17:16 | MHC.PT.EP ---
[facility] [place] Office [place] [facility] [place] [facility] [address] Louisa Charles [address] [phone] F: [phone] F: [phone] F: [phone] F: [phone] Physical Therapy Plan of Care Date of Evaluation: Date of Surgery: 05/12/2022 Diagnosis: s/p L knee partial menisectomy on 05/12/22 (RC + BB) Assessment: pt is a 56yo male presenting to physical therapy s/p partial meniscectomy (05/12/22). He has symptoms including pain, decrease ROM, impaired strength, gait deviations, poor postural awareness, and difficulty with ADLs. Pt is currently out of work and has difficulty using the stairs to access his home. Pt also has difficulty walking, kneeling, bending, and navigating stairs. Pt is a good candidate for skilled physical therapy d/t comorbidities, pathology of condition, and motivation. Pt will benefit from skilled PT to increase knee ROM, LE strength, gait training, stretching, and postural training. Frequency and Duration: The patient will be seen 2x/6weeks Short Term Goals: Pt will be I in HEP to show ability to self-manage condition. Pt will increase knee extension ROM to 0* to assist in restoring normal gait mechanics on even ground. Intermediate Goals: Pt will improve a statistically significant amount on self reported outcome measure LEFI to show return to PLOF Pt will increase knee flexion ROM to 125* to increase tolerance to bending/picking up objects on the ground. Pt will increase knee extension strength by 2 MMT grades to increase ability to transfer from sit to stand. Treatment Plan: Modalities to reduce pain, spasms and effusion. Manual therapy to restore motion and function. Therapeutic exercise to improve strength and flexibility. Neuromuscular re-education for posture and balance. Therapeutic activities to return to functional activities of daily living. Electronically signed by: Susie Raines PT, DPT Please sign and return to therapist. Thank you for your referral.
--- NOTE | 2022-08-16 13:28 | MHC.PT.DC ---
[facility] [place] [facility] [place] [facility] [place] Office [address] Louisa Charles [address] [phone] F: [phone] F: [phone] F: [phone] F: [phone] Physical Therapy Discharge Report Diagnosis: s/p L knee partial menisectomy on 05/12/22 (RC + BB) Date of Surgery: 05/12/2022 Date of Evaluation: 06/22/22 Date of Discharge: 08/16/22 Treatments to Date: 3 Cancellations to Date: 1 No Shows to Date: 7 Discharge Status: Recommend MD Follow-up Discharge Summary: Per last treatment note: pt overall still reporting posterior knee pain and swelling. 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 He was encouraged to ice the back of his knee everyday. pt verbalized understanding. Progressed strengthening to 3x10 for each ex and some w/ 2# CW. All done to luciano. Continue to work on progressing strength and range. He has poor tolerance of extension d/t posterior knee pain and swelling. His progress is being hindered by his recent cluster of epileptic episodes. He stated his MD is aware. Continue to progress per pt's tolerance. He has not attended any physical therapy treatments in the past month. He only attended 3 visits in the course of 1 month. He was having increase in seizures but his PCP was aware. He is being discharged from this physical therapy plan of care at this time. Electronically signed by: Susie Raines PT, DPT Please sign and return to therapist. Thank you for your referral.
== END 2022-08-16 13:28 | disposition home or self-care (01) ==
LOC: HO.PT 10:00
PROVIDERS: PCP Nurse Practitioner Primary Care; Visit Provider Physician Assistant
DX: S83.207A Unspecified tear of unspecified meniscus, current injury, left knee, initial encounter (principal)
CPT/HCPCS: 97110; 97150; 97162

== ENCOUNTER → 2022-09-08 13:25 | Outpatient (BNVA) | payer MEDICAID, SELFPAY | PROVIDERS: PCP Nurse Practitioner Primary Care; Visit Provider Orthopaedic Surgery | DX: R20.0 Anesthesia of skin (principal); R20.2 Paresthesia of skin | CPT/HCPCS: 99202 ==

== ENCOUNTER → 2022-09-16 13:00 | Outpatient (BNVA) | payer MEDICAID, SELFPAY | PROVIDERS: PCP Nurse Practitioner Primary Care; Visit Provider Student in an Organized Health Care Education/Training Program | DX: M25.541 Pain in joints of right hand (principal); M25.542 Pain in joints of left hand | CPT/HCPCS: 99212 ==

== ENCOUNTER 2022-09-20 | Outpatient (REF) | payer MEDICAID, SELFPAY ==
--- NOTE | ~2022-09-20 | XR_ITS ---
EXAMINATION: XR KNEES, STANDING AP XR KNEE, LEFT CLINICAL INFORMATION: Knee pain. COMPARISON: Radiographs left knee 02/08/2022, right knee 07/08/2001. TECHNIQUE: Standing AP view of both knees is performed along with lateral and axial patella views of the left knee. FINDINGS: Right: Normal bony mineralization. No joint narrowing or erosive change or chondrocalcinosis. Fine vertical linear ossification just medial to tibial plateau and marginal osteophyte medial plateau is stable. Left: Normal bony mineralization. No fracture, dislocation, destructive process. There is interval narrowing of the joint compartment. No subchondral sclerosis, erosive change, or chondrocalcinosis. Small suprapatellar effusion suspected. Hoffa's fat pad appears normal. Axial view patella shows no lateralization. There may be mild lateral tilting. XR/XR knee standing BI IMPRESSION: Right: -Unremarkable. Left: -Narrowing joint compartment with probable small suprapatellar effusion. -Mild lateral tilting patella. No lateralization patella.
--- NOTE | ~2022-09-20 | XR_ITS ---
EXAMINATION: XR KNEES, STANDING AP XR KNEE, LEFT CLINICAL INFORMATION: Knee pain. COMPARISON: Radiographs left knee 02/08/2022, right knee 07/08/2001. TECHNIQUE: Standing AP view of both knees is performed along with lateral and axial patella views of the left knee. FINDINGS: Right: Normal bony mineralization. No joint narrowing or erosive change or chondrocalcinosis. Fine vertical linear ossification just medial to tibial plateau and marginal osteophyte medial plateau is stable. Left: Normal bony mineralization. No fracture, dislocation, destructive process. There is interval narrowing of the joint compartment. No subchondral sclerosis, erosive change, or chondrocalcinosis. Small suprapatellar effusion suspected. Hoffa's fat pad appears normal. Axial view patella shows no lateralization. There may be mild lateral tilting. XR/XR knee LT 2V IMPRESSION: Right: -Unremarkable. Left: -Narrowing joint compartment with probable small suprapatellar effusion. -Mild lateral tilting patella. No lateralization patella.
== END 2022-09-20 00:01 ==
LOC: HO.HOSX
PROVIDERS: Visit Provider Physician Assistant
DX: S83.207A Unspecified tear of unspecified meniscus, current injury, left knee, initial encounter (principal)
CPT/HCPCS: 73560; 73565; 99212

== ENCOUNTER 2022-09-23 15:56 | Outpatient (REF) | payer MEDICAID, SELFPAY ==
--- NOTE | ~2022-09-23 | MR_ITS ---
EXAMINATION: MR HAND WITHOUT AND WITH CONTRAST, RIGHT CLINICAL INFORMATION: Rheumatoid arthritis. Evaluate for synovitis. COMPARISON: Right hand and wrist radiographs dated 07/12/2022. TECHNIQUE: Multisequence MR imaging of the right hand was obtained before and after the IV administration of 8 mL Gadavist contrast on a high-field strength scanner. FINDINGS: BONE: Articular cartilage loss with small marginal osteophytes at the 1st carpometacarpal and 1st metacarpophalangeal joints. No significant marrow edema. No postcontrast marrow enhancement. No concerning lytic or blastic osseous lesion. No fracture or dislocation. MUSCLES/TENDONS: Mildly increased T2 signal within the extensor carpi ulnaris tendon consistent with minimal tendinosis. Trace fluid within the flexor pollicis longus tendon sheath consistent minimal tenosynovitis. No transverse tendon tear or tendon retraction. LIGAMENTS: The collateral ligaments are intact. SOFT TISSUES: Small 2nd metacarpophalangeal and trace 1st metacarpophalangeal joint effusions. Mild postcontrast enhancement at the 2nd metacarpophalangeal joint which could indicate mild synovitis. No associated osseous erosion. No soft tissue mass or fluid collection. MR/MR hand RT wo/w con IMPRESSION: 1. Small 2nd metacarpophalangeal with mild synovitis. Trace 1st metacarpophalangeal joint effusion. No associated osseous erosion. No soft tissue mass or fluid collection. 2. Mild osteoarthritis at the 1st carpometacarpal and 1st metacarpophalangeal joints. 3. Minimal extensor carpi ulnaris tendinosis. Minimal flexor pollicis longus tenosynovitis. No transverse tendon tear or tendon retraction.
== END 2022-09-23 15:57 | disposition home or self-care (01) ==
LOC: HO.MRI 15:56
PROVIDERS: Visit Provider Student in an Organized Health Care Education/Training Program
DX: M06.041 Rheumatoid arthritis without rheumatoid factor, right hand (principal)
CPT/HCPCS: 73220

== ENCOUNTER 2022-10-05 11:24 | Outpatient (REF) | payer MEDICAID, SELFPAY ==
[2022-10-05 11:38] LABS: MANUAL DIFF FLAG NO
[2022-10-05 12:36] LABS: Basophils Absolute Auto 0.1 X10*3/uL (0.0-0.2); Basophils Percent Auto 0.7 % (0-2); Eosinophils Absolute Auto 0.2 X10*3/uL (0.0-0.4); Eosinophils Percent Auto 3.2 % (0-4); Hematocrit 48.6 % (42.0-52.0); Hemoglobin 15.6 g/dl (14.0-18.0); Imm Gran Abs Auto 0.03 X10*3/uL (0.00-0.03); Imm Gran Pct Auto 0.4 % (0.0-0.4); Lymphocytes Absolute Auto 2.3 X10*3/uL (1.2-4.9); Lymphocytes Percent Auto 30.1 % (20-40); Mean Corpuscular HGB Conc 32.1 g/dl (31.0-36.0); Mean Corpuscular Hemoglobin 30.2 pg (27.0-33.0); Mean Platelet Volume 10.1 fL (9.4-12.4); Monocytes Absolute Auto 0.6 X10*3/uL (0.1-1.2); Monocytes Percent Auto 8.2 % (2-11); Neutrophils Absolute Auto 4.3 x10*3/uL (2.0-8.3); Neutrophils Percent Auto 57.4 % (45-73); Platelet Count 330 X10*3/uL (160-400); Red Blood Count 5.17 X10*6/uL (4.60-5.80); Red Cell Distribution Width 13.4 % (11.0-16.0); White Blood Count 7.5 X10*3/uL (4.8-10.8)
[2022-10-05 12:55] LABS: Estimated Average Glucose 105 mg/dL; Hemoglobin A1c % 5.3 %
[2022-10-05 13:08] LABS: Alanine Aminotransferase 18 U/L (0-40); Albumin Level 4.3 g/dL (3.5-5.0); Alkaline Phosphatase 91 U/L (39-117); Anion Gap 11 (12-20); Aspartate Amino Transferase 14 U/L (5-37); Bilirubin Total 0.4 mg/dL (0.0-1.0); Blood Urea Nitrogen 19 mg/dL (9-16); Calcium 9.4 mg/dL (8.4-10.2); Carbon Dioxide 28 mmol/L (22-29); Chloride 106 mmol/L (96-108); Estimated Glomerular Filt Rate > 60; Glucose Random 98 mg/dL (60-115); Potassium 4.9 mmol/L (3.3-5.1); Sodium 140 mmol/L (135-145); Total Protein 7.2 g/dL (6.5-8.0)
[2022-10-05 13:16] LABS: Erythrocyte Sedimentation Rate 6 MM/HR (0-15)
[2022-10-06 11:50] LABS: HBS Num1 0.41 mIU/mL (0-7.99); HBc Num1 0.05 S/CO (0.00-0.79); HBsAGNum1 0.29 S/CO (0.00-0.99); Hepatitis A Antibody IgM 0.12 Index (0-0.79); Hepatitis B Core Antibody Nonreactive (Nonreactive); Hepatitis B Surface Antigen Negative (Negative); ~HepC Num1 0.08 S/CO (0.00-0.79); ~Hepatitis A Antibody IgM Nonreactive (Nonreactive); ~Hepatitis B Surface Antibody NONREACTIVE (Nonreactive); ~Hepatitis C Antibody Nonreactive (Nonreactive)
[2022-10-08 07:08] LABS: TS Negative Control Passed; TS Panel A 0; TS Panel B 0; TS Positive Control Passed; TSpotTB Negative (Negative)
[2022-10-09 21:24] LABS: HLA B27 Negative (Negative)
== END 2022-10-05 11:25 | disposition home or self-care (01) ==
LOC: HO.LAB 11:24
PROVIDERS: Visit Provider Student in an Organized Health Care Education/Training Program
DX: Z11.59 Encounter for screening for other viral diseases (principal); Z11.7 Encounter for testing for latent tuberculosis infection; Z13.1 Encounter for screening for diabetes mellitus; M06.9 Rheumatoid arthritis, unspecified; G89.29 Other chronic pain; M25.571 Pain in right ankle and joints of right foot
CPT/HCPCS: 36415; 80053; 83036; 85025; 85652; 86140; 86481; 86704; 86706; 86709; 86803; 86812; 87340

== ENCOUNTER → 2022-11-08 09:08 | Outpatient (BNVA) | payer MEDICAID, SELFPAY | PROVIDERS: Visit Provider Physician Assistant | DX: S83.207D Unspecified tear of unspecified meniscus, current injury, left knee, subsequent encounter (principal) | CPT/HCPCS: 99212 ==

== ENCOUNTER 2022-11-18 11:24 | Outpatient (REF) | payer MEDICAID, SELFPAY ==
--- NOTE | 2022-11-18 08:15 | EMG_ITS ---
Bilateral median and ulnar motor and sensory studies were performed. Bilateral radial sensory studies were performed, and paraspinal muscles were tested with a needle. IMPRESSION: 1. Mild bilateral ulnar neuropathy across elbow. 2. Mild right median neuropathy across carpal tunnel. MD NEGAR Moran/VEL / [phone]
== END 2022-11-18 11:25 | disposition home or self-care (01) ==
LOC: HO.NEURO 11:24
PROVIDERS: PCP Nurse Practitioner Primary Care; Visit Provider Orthopaedic Surgery
DX: R20.0 Anesthesia of skin (principal)
CPT/HCPCS: 95886; 95911

== ENCOUNTER → 2023-01-13 08:00 | Outpatient (BNVA) | payer MEDICAID, SELFPAY | PROVIDERS: Visit Provider Student in an Organized Health Care Education/Training Program | DX: M06.09 Rheumatoid arthritis without rheumatoid factor, multiple sites (principal); G56.01 Carpal tunnel syndrome, right upper limb; Z79.631 Long term (current) use of antimetabolite agent | CPT/HCPCS: 99212 ==

== ENCOUNTER → 2023-02-02 09:00 | Outpatient (BNVA) | payer MEDICAID, SELFPAY | PROVIDERS: PCP Nurse Practitioner Primary Care; Visit Provider Orthopaedic Surgery | DX: G56.01 Carpal tunnel syndrome, right upper limb (principal); G56.23 Lesion of ulnar nerve, bilateral upper limbs; M06.09 Rheumatoid arthritis without rheumatoid factor, multiple sites | CPT/HCPCS: 99212 ==

== ENCOUNTER 2023-02-12 07:01 | Emergency (ER) | payer MEDICAID, SELFPAY ==
--- NOTE | ~2023-02-12 | CT_ITS ---
EXAMINATION: CT ABDOMEN AND PELVIS WITH CONTRAST CLINICAL INFORMATION: Right lower quadrant pain COMPARISON: None available. TECHNIQUE: Multidetector volumetric images were obtained from the superior aspect of the liver through the pubic symphysis following administration 85 mL of Omnipaque 350 intravenous contrast. Sagittal and coronal reformatted images were obtained on the technologist's workstation. Oral contrast: No This CT examination was performed using dose optimization techniques as appropriate, variously including the following: *Automated exposure control *Adjustment of mA and/or kV according to patient size (this includes techniques or standardized protocols for targeted exams where dose is matched to indication/reason for exam; i.e. extremities or head) *Use of iterative reconstruction technique DLP: 752 mGy-cm FINDINGS: LUNG BASES: There is platelike atelectasis in both lung bases. Heart size is normal. LIVER, GALLBLADDER, AND BILIARY TREE: The liver is normal in size, shape, and attenuation. No focal hepatic lesion or biliary ductal dilatation is present. The gallbladder is unremarkable with no evidence of radiopaque gallstones, gallbladder wall thickening, or obvious pericholecystic inflammatory changes. PANCREAS: Unremarkable. SPLEEN: Unremarkable. ADRENAL GLANDS: Unremarkable. KIDNEYS AND URETERS: The kidneys are normal in size, shape, and attenuation. No hydronephrosis, hydroureter, or calculi seen. No perinephric stranding. There is a 2.4 cm cyst upper pole right kidney. BLADDER: Unremarkable. GASTROINTESTINAL TRACT: There is scattered stool, diverticuli and gas seen throughout the colon without any significant distention. The appendix is normal caliber. There is no inflammatory process, free air or free fluid. ABDOMINAL WALL: There is a small umbilical hernia containing fat. LYMPH NODES: Normal. VASCULAR: Unremarkable. PELVIC VISCERA: The prostate gland is normal size. No abnormal pelvic lymph nodes. No evidence of hernia. OSSEOUS STRUCTURES: Mild degenerative disc changes L1-L2 disc level with ventral spondylosis and vacuum disc phenomena. No aggressive lytic or sclerotic process seen. CT/CT abdomen pelvis w IV con IMPRESSION: 1. No acute intra-abdominal process seen. 2. Scattered colonic diverticulosis without diverticulitis. Mild constipation. Normal appendix. Fleischner guidelines were followed.
[2023-02-12 07:26] VITALS: BP 131/92; PULSE 87; RESP 18; TEMP 36.9; O2SAT 96; BMI 26.6
[2023-02-12 07:51] VITALS: BP 134/96; PULSE 85; RESP 18; TEMP 37.1; O2SAT 97
--- NOTE | 2023-02-12 08:03 | PC.NURSE ---
with interp at bedside, pt able to communicate that he has had right abdominal pain since starting methotrexate, but this morning he felt a pop States he has not communicated with her prescribing MD about symtpoms. I am on this because of a bone deficiency 9 pain, worse with palpitation. denies n/v/d
--- NOTE | 2023-02-12 08:22 | ED.ABDPAIN ---
HPI - Abdominal Pain General Chief Complaint: Abdominal Pain Stated Complaint: Right abd pain Time Seen by Provider: 02/12/23 07:46 Source: patient Mode of arrival: ambulatory Limitations: no limitations History of Present Illness HPI narrative: This is a 57 years old male presented to the emergency department complaining of right-sided abdominal pain since yesterday. Denies any nausea vomiting diarrhea fever. He has history of rheumatoid arthritis, epilepsy MD elicited complaint: abdominal pain Pertinent past history: other (RA) Onset (ago): day(s) (1) Pain Consistency: constant Location: RLQ Severity: moderate Radiation: none Exacerbating factors: nothing Related Data Home Medications Medication Instructions Recorded Confirmed levetiracetam 1,000 mg tablet 1,000 mg PO BID 09/22/20 05/06/22 (Keppra) Vitamin D3 05/06/22 acetaminophen 500 mg tablet 1,000 mg PO Q6H PRN Pain 05/06/22 05/06/22 albuterol sulfate 0.63 mg/3 mL 1 amp inhalation Q4-6H PRN wheezing 05/06/22 05/06/22 solution for nebulization fluticasone propionate 110 1 puff inhalation BID 05/06/22 05/06/22 mcg/actuation HFA aerosol inhaler (Flovent HFA) fluticasone propionate 50 2 spray intranasal DAILY 05/06/22 05/06/22 mcg/actuation nasal spray,suspension cyclobenzaprine 10 mg tablet 10 mg PO PRN 01/13/23 pantoprazole 20 mg tablet,delayed 20 mg PO QAM 01/13/23 release Previous Rx's Medication Instructions Recorded albuterol sulfate 90 mcg/actuation 2 inh inhalation Q4-6H PRN 12/28/20 breath activated powder inhaler shortness of breath or wheezing #1 ea ibuprofen 800 mg tablet 800 mg PO TID PRN pain #90 tabs 03/04/22 hydrocodone 5 mg-acetaminophen 325 1 tab PO Q8H PRN pain (scale score 05/12/22 mg tablet 4-6) 7 days #21 tabs diclofenac sodium 75 mg 75 mg PO BID PRN for pain #60 tabs 10/27/22 tablet,delayed release folic acid 1 mg tablet 1 mg PO DAILY #90 tabs 01/13/23 methotrexate sodium 2.5 mg tablet See Rx Instructions PO .COMPLEX 01/13/23 #56 tabs wrist splint #1 ea 01/13/23 Allergies Allergy/AdvReac Type Severity Reaction Status Date / Time SEAFOOD Allergy Unknown SWELLING, Uncoded 02/12/23 07:35 THROAT CLOSES Review of Systems Constitutional: Reports no additional constitutional complaints Eyes: Reports no additional eye complaints Reports system reviewed and no additional complaints, except as documented Cardiovascular: Reports no additional cardiovascular complaints PMFSH Past Medical History Medical History Anxiety and depression Arthritis Asthma Chronic back pain COVID-19 Degeneration of intervertebral disc of cervical spine without disc herniation Degenerative disc disease, cervical Epilepsy GERD (gastroesophageal reflux disease) History of stroke JAGJIT on CPAP Osteoarthritis of left knee Pain in right ankle and joints of right foot PUD (peptic ulcer disease) Spondylosis of cervical spine Surgical History Hx of cervical spine surgery Hx of colonoscopy Hx of esophagogastroduodenoscopy S/P left knee arthroscopy Family History Family History Mother Osteoarthritis Father Alzheimer disease Social History Social History Alcohol intake: never Patient Tobacco Use Status: Current everyday Tobacco user Tobacco use type: Cigarette Cigarettes Per Day: 2 Smoked in Last 30 Days: Yes Use of substances other than those prescribed or required for medical reasons: No Advance Directives: No Advance Directives Information Provided: Yes Current occupational status: unemployed Current occupation: rt handed Physical Exam ED Vital Signs: Vital Signs - 24 hr 02/12/23 07:26 02/12/23 07:51 02/12/23 11:35 Temperature 98.4 F 98.7 F 98.6 F Pulse Rate 87 85 74 Respiratory Rate 18 18 18 Blood Pressure 131/92 H 134/96 H 118/86 Pulse Oximetry 96 97 94 Oxygen Delivery Method Room Air Room Air Room Air 02/12/23 12:16 Temperature Pulse Rate 83 Respiratory Rate 20 Blood Pressure 136/100 H Pulse Oximetry 95 Oxygen Delivery Method Room Air BMI result Body Mass Index 26.6 Looks well is not toxic-appearing Const General: cooperative Nutritional Appearance: well nourished Orientation/consciousness: oriented to person and patient oriented x3 Limitations: no limitations HENMT Head: Yes normal to inspection Ears: hearing grossly normal bilaterally General nose exam: Normal external nose present Face and sinus: Yes normal facial exam Mouth: Normal oral and palatal mucosa present Throat: Yes posterior oropharynx normal Neck Neck: Yes normal visual inspection Resp Effort & Inspection: normal respiratory effort Cardio Jugular venous distension: no JVD Rate: regular rate Rhythm: regular rhythm GI Inspection: Yes normal to inspection Palpation (GI): Tenderness to palpation present (GI) (Right lower quadrant tenderness) Auscultation: normal bowel sounds General: Yes no CVA tenderness Back/Spine/Pelvis Back: no CVA tenderness Neuro General: oriented to person and patient oriented x3 Cranial nerves: Yes CN's II-XII intact bilaterally Course Reevaluation(s) Reevaluation #1: Workup is now completed CT scan of the abdomen and pelvis is negative labs are within normal limit I think the patient can be discharged home Time: 11:55 Medical Decision Making Medical Decision Making [facility] Narrative: He presented to emergency room complaining of abdominal pain more in the right differential is broad we get the labs CT Differential Diagnosis Differential Diagnoses: The differential diagnosis associated with the presentation includes Colitis/diverticulitis /SBO Admission/Observation Consideration of admission/observation: Escalation of care including admission/observation considered Lab Data MDM Lab Attestation statement: I reviewed the patient's lab results. 02/12/23 08:39 02/12/23 08:39 Labs: Lab Results 02/12/23 02/12/23 Range/Units 08:39 08:39 WBC 6.1 (4.8-10.8) X10*3/uL RBC 4.61 (4.60-5.80) X10*6/uL Hgb 14.5 (14.0-18.0) g/dl Hct 44.1 (42.0-52.0) % MCV 95.7 (80.0-98.0) fL MCH 31.5 (27.0-33.0) pg MCHC 32.9 (31.0-36.0) g/dl RDW 13.7 (11.0-16.0) % Plt Count 241 D (160-400) X10*3/uL MPV 9.4 (9.4-12.4) fL Immature Gran % (Auto) 0.7 H (0.0-0.4) % Neut % (Auto) 58.2 (45-73) % Lymph % (Auto) 23.8 (20-40) % Hardee % (Auto) 10.3 (2-11) % Eos % (Auto) 6.0 H (0-4) % Baso % (Auto) 1.0 (0-2) % Lymph # (Auto) 1.5 (1.2-4.9) X10*3/uL Hardee # (Auto) 0.6 (0.1-1.2) X10*3/uL Eos # (Auto) 0.4 (0.0-0.4) X10*3/uL Baso # (Auto) 0.1 (0.0-0.2) X10*3/uL Abs Immat Gran (auto) 0.04 H (0.00-0.03) X10*3/uL Absolute Neuts (auto) 3.6 (2.0-8.3) x10*3/uL Absolute Nucleated RBC 0.000 (0.0-0.012) X10*3/uL Nucleated RBC % (auto) 0.0 (0.0-0.2) /100WBC Sodium 141 (135-145) mmol/L Potassium 4.6 (3.3-5.1) mmol/L Chloride 107 (96-108) mmol/L Carbon Dioxide 27 (22-29) mmol/L Anion Gap 12 (12-20) BUN 16 (9-16) mg/dL Creatinine 0.85 (0.5-1.4) mg/dL Estim Creat Clear Calc 93.8 Estimated GFR > 60 Random Glucose 105 (60-115) mg/dL Calcium 9.0 (8.4-10.2) mg/dL Total Bilirubin 0.5 (0.0-1.0) mg/dL AST 29 (5-37) U/L ALT 66 H (0-40) U/L Alkaline Phosphatase 77 (39-117) U/L Total Protein 6.7 (6.5-8.0) g/dL Albumin 4.0 (3.5-5.0) g/dL Lipase 14 (8-78) U/L Independent Interpretation I performed an independent interpretation of an: CT Scan Interpretation: normal ct Radiology Impression Discussion of test interpretation with radiology: I have reviewed the radiologist's reading. Radiologist Impression: GASTROINTESTINAL TRACT: There is scattered stool, diverticuli and gas seen throughout the colon without any significant distention. The appendix is normal caliber. There is no inflammatory process, free air or free fluid.? ABDOMINAL WALL: There is a small umbilical hernia containing fat.? LYMPH NODES: Normal. VASCULAR: Unremarkable. PELVIC VISCERA: The prostate gland is normal size. No abnormal pelvic lymph nodes. No evidence of hernia.? OSSEOUS STRUCTURES: Mild degenerative disc changes L1-L2 disc level with ventral spondylosis and vacuum disc phenomena. No aggressive lytic or sclerotic process seen.? CT/CT abdomen pelvis w IV con IMPRESSION: 1.? No acute intra-abdominal process seen. 2.? Scattered colonic diverticulosis without diverticulitis. Mild constipation. Normal appendix. ? ? Fleischner guidelines were followed. Medications Administered Discontinued Medications Generic Name Dose Route Start Last Admin Trade Name Freq PRN Reason Stop Dose Admin Iohexol 100 ml 02/12/23 10:39 02/12/23 10:40 Iohexol 350 Mg/Ml 100 Ml Infus..Btl IV 02/12/23 10:40 85 ml ONCE ONE Administration Tramadol HCl 50 mg 02/12/23 11:54 02/12/23 12:17 Tramadol Hcl 50 Mg Tablet PO 02/12/23 11:55 50 mg ONCE ONE Administration Discharge Plan Discharge Clinical Impression: Abdominal pain Patient Disposition: Home, Self-Care Instructions: Abdominal Pain (ED) Additional Instructions: Follow-up with your primary care physician return to the emergency room if worse Prescriptions: No Action diclofenac sodium 75 mg tablet,delayed release (DR/EC) 75 mg PO BID PRN (Reason: for pain) Qty: 60 0RF albuterol sulfate 90 mcg/actuation aerosol powdr breath activated 2 inh inhalation Q4-6H PRN (Reason: shortness of breath or wheezing) Qty: 1 0RF albuterol sulfate 0.63 mg/3 mL solution for nebulization 1 amp inhalation Q4-6H PRN (Reason: wheezing) acetaminophen 500 mg Tablet 1,000 mg PO Q6H PRN (Reason: Pain) fluticasone propionate 50 mcg/actuation spray,suspension 2 spray intranasal DAILY fluticasone propionate [Flovent HFA] 110 mcg/actuation HFA aerosol inhaler 1 puff INHALATION BID Vitamin D3 hydrocodone-acetaminophen 5-325 mg tablet 1 tab PO Q8H PRN (Reason: pain (scale score 4-6)) 7 Days Qty: 21 0RF Rx Instructions: Partial Fill upon patient request. levetiracetam [Keppra] 1,000 mg tablet 1,000 mg PO BID ibuprofen 800 mg tablet 800 mg PO TID PRN (Reason: pain) Qty: 90 2RF pantoprazole 20 mg tablet,delayed release (DR/EC) 20 mg PO QAM cyclobenzaprine 10 mg tablet 10 mg PO PRN (DME) wrist splint See Rx Instructions .Route .MEDSUPPLY Qty: 1 0RF Rx Instructions: wear at night & as much as possible throughout the day methotrexate sodium 2.5 mg tablet See Rx Instructions PO .COMPLEX Qty: 56 0RF Rx Instructions: Take 6 tabs by mouth one day a week for 4 weeks then 8 tabs by mouth 1 day a week folic acid 1 mg tablet 1 mg PO DAILY Qty: 90 1RF Referrals: [facility] [Primary Care Provider] - 2 days Interventions: ED Discharge Assessment Last Done: 02/12/23 12:29 Discharge Date/Time: 02/12/23 12:29
[2023-02-12 08:43] LABS: MANUAL DIFF FLAG NO
[2023-02-12 08:44] LABS: Basophils Absolute Auto 0.1 X10*3/uL (0.0-0.2); Eosinophils Absolute Auto 0.4 X10*3/uL (0.0-0.4); Hematocrit 44.1 % (42.0-52.0); Hemoglobin 14.5 g/dl (14.0-18.0); Imm Gran Abs Auto 0.04 X10*3/uL (0.00-0.03); Imm Gran Pct Auto 0.7 % (0.0-0.4); Lymphocytes Absolute Auto 1.5 X10*3/uL (1.2-4.9); Lymphocytes Percent Auto 23.8 % (20-40); Mean Corpuscular HGB Conc 32.9 g/dl (31.0-36.0); Mean Corpuscular Hemoglobin 31.5 pg (27.0-33.0); Mean Corpuscular Volume 95.7 fL (80.0-98.0); Mean Platelet Volume 9.4 fL (9.4-12.4); Monocytes Absolute Auto 0.6 X10*3/uL (0.1-1.2); Monocytes Percent Auto 10.3 % (2-11); Neutrophils Absolute Auto 3.6 x10*3/uL (2.0-8.3); Neutrophils Percent Auto 58.2 % (45-73); Platelet Count 241 X10*3/uL (160-400); Red Blood Count 4.61 X10*6/uL (4.60-5.80); Red Cell Distribution Width 13.7 % (11.0-16.0); White Blood Count 6.1 X10*3/uL (4.8-10.8)
[2023-02-12 08:59] LABS: Alanine Aminotransferase 66 U/L (0-40); Alkaline Phosphatase 77 U/L (39-117); Anion Gap 12 (12-20); Aspartate Amino Transferase 29 U/L (5-37); Bilirubin Total 0.5 mg/dL (0.0-1.0); Blood Urea Nitrogen 16 mg/dL (9-16); Carbon Dioxide 27 mmol/L (22-29); Chloride 107 mmol/L (96-108); Creatinine Clr Calc Pharmacy 93.8; Estimated Glomerular Filt Rate > 60; Glucose Random 105 mg/dL (60-115); Lipase 14 U/L (8-78); Potassium 4.6 mmol/L (3.3-5.1); Sodium 141 mmol/L (135-145); Total Protein 6.7 g/dL (6.5-8.0)
--- NOTE | 2023-02-12 09:46 | PC.NURSE ---
CT at bedside to bring pt to scan
[2023-02-12] MEDS: iohexoL 350 MG/ML 100 ML INFUS..BTL IV (10:40)
[2023-02-12 11:35] VITALS: BP 118/86; PULSE 74; RESP 18; TEMP 37; O2SAT 94
[2023-02-12 12:16] VITALS: BP 136/100; PULSE 83; RESP 20; O2SAT 95
[2023-02-12] MEDS: traMADoL HCL 50 MG TABLET PO (12:17)
== END 2023-02-12 12:29 | disposition home or self-care (01) ==
PROVIDERS: Emergency Provider Emergency Medicine
DX: R10.31 Right lower quadrant pain (principal); F17.210 Nicotine dependence, cigarettes, uncomplicated
CPT/HCPCS: 36415; 74177; 80053; 83690; 85025; 99284; 99285; Q9967

== ENCOUNTER 2023-07-08 13:32 | Outpatient (AMB) | payer MEDICAID, SELFPAY ==
--- NOTE | 2023-07-08 10:44 | MHC.OFFVIS ---
Intake Intake Visit Reasons: LDCT SD Allergies shellfish derived Allergy (Severe, Verified 02/25/23 11:18) Anaphylaxis HPI LDCT SD HPI Details Initial visit for this 57yo smoker with a 75+PYH. Patient has been smoking since age 14 for 43 years at 2ppd. . Denies marijuana use. Denies second hand smoke exposure. Denies exposure to chemicals or substances like asbestos. . Denies known family history of lung cancer. Denies personal history of cancers. Denies chest CT in last year. . Denies recent travel outside the [place]. Denies recent respiratory illness or recent hospitalization for respiratory issues. Reports testing positive for COVID. midl case. Admits receiving COVID Vaccine. x 3. . Denies fever, chills, new/worsening cough, hemoptysis, hoarseness or dysphagia. Denies significant chest pain, significant dyspnea or unintentional weight loss. Patient Lung Cancer Screening Questionnaire reviewed with patient by provider. . Shared Decision Making Completed. Patient meets criteria. Discussed in detail with patient, the risk vs benefit of LDCT screening. Patient consents to proceed with scan. Discussed smoking cessation. 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 HTN (hypertension) HLD (hyperlipidemia) GERD (gastroesophageal reflux disease) PUD (peptic ulcer disease) JAGJIT on CPAP Asthma Nicotine dependence, cigarettes, uncomplicated History of COVID-19 Depression Chronic knee pain Osteoarthritis of left knee Chronic back pain Degenerative disc disease, cervical Spondylosis of cervical spine Pain in right ankle and joints of right foot Surgical History (Updated 06/02/23 @ 11:56 by Lizet Malone PA-C) History of left knee surgery History of cervical spinal surgery History of esophagogastroduodenoscopy (EGD) History of colonoscopy Family History Mother Osteoarthritis Father Alzheimer disease Social History (Updated 07/08/23 @ 13:45 by Lizet Malone PA-C) Are you a primary healthcare architect to a significant other at home: No Do you presently have visiting nurse or other home services: No Alcohol intake: never Patient Tobacco Use Status: Current everyday Tobacco user Tobacco use type: Cigarette Cigarette Packs Per Day: 2 Years Smoked: onset 14, 2ppd x 43yrs, 75+pyh Current occupational status: unemployed Current occupation: rt handed Assessment & Plan Assessment & Plan (1) Nicotine dependence, cigarettes, uncomplicated: Comment: (onset 14yo, 2ppd x 43yrs, 75+pyh) Code(s): F17.210 - Nicotine dependence, cigarettes, uncomplicated Plan: - SDM visit completed today in office. - Patient meets criteria for LDCT for lung cancer screening purposes and is asymptomatic. - Smoking cessation counseling offered. Patients can always call [phone]. - Will arrange for a LDCT scan of the chest for screening purposes at [facility]. - Risks, benefits, and alternatives were discussed in detail and the patient agrees to proceed. - Risks discussed include but are not limited to: radiation exposure, anxiety during testing and while awaiting results, false negatives, false positives and possibility of additional intervention such as further imaging or surgical procedures for benign disease. - Benefits are obviously detection of lung cancer at an early stage which can lead to improved outcomes. - Discussed the importance of screening program compliance with adherence to yearly LDCT scan as scheduled - or sooner interval scans for personalized screening regimen. - Discussed follow up plan. Our office will send a letter discussing results and if needed set up phone call and office visit based on CT findings. - Patient educated on results categorization and the management decisions for suspicious findings potentially found on the screening LDCT scan. Any patient with a Lung RADS score of 3 or 4 will be reviewed by a multidisciplinary team at [facility] to form a plan of action in regards to scan findings. - If further work up is warranted for a suspicious lung finding this will be followed by the Lung Cancer Screening program in conjunction with the Thoracic Surgery Department at [facility]. - A copy of the office note and LDCT will be sent to the patient's PCP - as well as documentation on any associated further plans of care. - Incidental findings on LDCT are the PCP's responsibility. These findings are indicated with an S finding on the LDCT Assessment. A note discussing the findings will be sent to the PCP who is then responsible for further management. - All questions answered.? Coding Level of Care Code Lung Cancer Screening G0296 Diagnoses Nicotine dependence, cigarettes, uncomplicated F17.210
== END 2023-07-08 15:01 | disposition home or self-care (01) ==
PROVIDERS: PCP Student in an Organized Health Care Education/Training Program; Visit Provider Physician Assistant Medical
DX: F17.210 Nicotine dependence, cigarettes, uncomplicated (principal)
CPT/HCPCS: G0296

== ENCOUNTER 2023-07-08 13:46 | Outpatient (REF) | payer MEDICAID, SELFPAY ==
--- NOTE | ~2023-07-08 | CT_ITS ---
EXAMINATION: CT CHEST SCREENING CLINICAL INFORMATION: Baseline in current smoker pack year smoking history COMPARISON: None available. TECHNIQUE: Multidetector volumetric CT imaging of the chest is performed without contrast using low dose technique. Additional 2D coronal and sagittal reformatted images and axial 3D maximum intensity projection (MIP) images are generated on the CT workstation. This CT examination was performed using dose optimization techniques as appropriate, variously including the following: *Automated exposure control *Adjustment of mA and/or kV according to patient size (this includes techniques or standardized protocols for targeted exams where dose is matched to indication/reason for exam; i.e. extremities or head) *Use of iterative reconstruction technique DLP: 53 mGy-cm FINDINGS: PURCHASING AGENT: Unremarkable LUNGS: Trachea and bronchi are patent. Mild centrilobular emphysema. Scattered atelectasis, most prominent in the lingula. 5 mm left lower lobe, 6:255 4 mm left lower lobe nodule, 6:355. 7 mm subpleural left lower lobe pulmonary nodule, 6:446. MEDIASTINUM: Unremarkable thyroid. No pathologic lymphadenopathy. Nonenlarged heart. Trace pericardial thickening/fluid. Nonaneurysmal aorta. Nonenlarged pulmonary arteries. CORONARY ARTERY CALCIFICATION: None visualized on this study. PLEURA: There is no pleural effusion. No pleural mass or thickening. CHEST WALL/AXILLA: No lymphadenopathy. Gynecomastia. UPPER ABDOMEN: Hepatic and splenic calcifications. OSSEOUS STRUCTURES: Partial visualization lower cervical surgical hardware. CT/CT lung screening IMPRESSION: Left lower lobe lung nodules, largest measuring 7 mm. ASSESSMENT: Lung-RADS category 3: Probably Benign RECOMMENDATION: Short interval 6 month follow up low dose CT chest.
== END 2023-07-08 13:47 | disposition home or self-care (01) ==
LOC: HO.CT 13:46
PROVIDERS: PCP Student in an Organized Health Care Education/Training Program; Visit Provider Physician Assistant Medical
DX: Z12.2 Encounter for screening for malignant neoplasm of respiratory organs (principal); Z87.891 Personal history of nicotine dependence
CPT/HCPCS: 71271; G0296

== ENCOUNTER 2023-12-27 12:36 | Outpatient (AMB) | payer MEDICAID, SELFPAY ==
--- NOTE | 2023-12-27 12:57 | MHC.OFFVIS ---
Intake Vital Signs 12/27/23 13:01 Height 5 ft 6 in Weight 169 lb 12.095 oz BMI 27.4 BP 126/78 Blood Pressure Location Rt brachial Position Sitting Pulse 96 Pulse Source Pulse Oximeter Pulse Oximetry (%) 98 Oxygen Delivery Method Room Air Intake Visit Reasons: RA Intake Note: Patient last seen 02/02/23 presents today for follow up and test results. Reports pain in different areas; Also reporst lung nodules. Sample Box Maker Required: Yes Sample Box Maker Name: [id number] Information Interpreted: clinical only Accompanied by: Self / Same As Patient Allergies shellfish derived Allergy (Severe, Verified 12/27/23 13:03) Anaphylaxis Medication List - Last Reconciled 12/27/23 by Hayley Diane MD acetaminophen 1,000 mg PO Q6H PRN albuterol sulfate 90 mcg/actuation 2 inhalations inhalation Q4-6H PRN albuterol sulfate 1 amp inhalation Q4-6H PRN amlodipine 5 mg PO DAILY cholecalciferol (vitamin D3) (Vitamin D3) 25 mcg PO DAILY diclofenac sodium 75 mg PO BID PRN [Epi E-Z Pen ] fluticasone propionate 110 mcg/actuation (Flovent HFA) 1 puff inhalation BID fluticasone propionate 50 mcg/actuation 2 sprays intranasal DAILY folic acid 1 mg PO DAILY ibuprofen 800 mg PO TID PRN pantoprazole 20 mg PO QAM [wrist splint wear at night & as much as possible throughout the day] HPI HPI Comments History of Present Illness Details 58-year-old male with seronegative RA returns for follow-up. He was last seen about a year ago. I had prescribed him methotrexate. Patient went to the hospital with abdominal pain, CT abdomen was unremarkable but labs showed transaminitis. Methotrexate was discontinued at that time. Patient did not follow-up with me afterwards. He was evaluated by hand surgeon for carpal tunnel and cubital tunnel syndrome and surgery was recommended. Patient stated that surgery was canceled due to hypertension. He states that he continues to have pain in his hands, knees. He also has tingling sensation in the right upper trapezius muscle as well as muscle spasm. He has not been taking his seizure medications lately. Initial history: This is a 56-year-old male with a past medical history of anxiety, depression, sleep apnea on CPAP, seizures is referred for evaluation of diffuse joint pain. Patient complains of pain in shoulders, elbows, hands, fingers, knees, feet. Pain is generally worse at night, he has tingling and numbness of his fingertips worse in the right hand, worse at night. He also feels that his right ankle is unstable, he saw a slasher machine operator but that office did not have an fisher trammel net so patient could not be seen. He wears an ankle brace. He has fever, fatigue, difficulty falling asleep. 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 HTN (hypertension) HLD (hyperlipidemia) GERD (gastroesophageal reflux disease) PUD (peptic ulcer disease) JAGJIT on CPAP Asthma Nicotine dependence, cigarettes, uncomplicated History of COVID-19 Depression Chronic knee pain Osteoarthritis of left knee Chronic back pain Degenerative disc disease, cervical Spondylosis of cervical spine Pain in right ankle and joints of right foot Surgical History History of left knee surgery History of cervical spinal surgery History of esophagogastroduodenoscopy (EGD) History of colonoscopy Family History Mother Osteoarthritis Father Alzheimer disease Social History Are you a primary healthcare specialist to a significant other at home: No Do you presently have visiting nurse or other home services: No Alcohol intake: never Patient Tobacco Use Status: Current everyday Tobacco user Tobacco use type: Cigarette Cigarette Packs Per Day: 2 Years Smoked: onset 14, 2ppd x 43yrs, 75+pyh Current occupational status: unemployed Current occupation: rt handed Review of Systems Musc Reports arthralgias, Reports joint swelling, Reports muscle weakness, Reports numbness, Reports stiffness and Reports tingling Neuro Reports numbness and Reports tingling Psych Reports anxiety Physical Exam Vital Signs: Last Vital Signs Pulse 96 12/27/23 13:01 BP 126/78 12/27/23 13:01 Pulse Ox 98 12/27/23 13:01 Oxygen Delivery Method Room Air 12/27/23 13:01 BMI result Body Mass Index 27.4 Const General: cooperative, healthy appearing, comfortable and no acute distress Nutritional Appearance: average body habitus and overweight Orientation/consciousness: patient oriented x3 Limitations: no limitations HEENT Head: Yes normocephalic and Yes atraumatic Mouth: Normal oral and palatal mucosa present Resp Effort & Inspection: normal respiratory effort and able to speak in complete sentences GI Palpation (GI): Soft to palpation and nontender Neuro General: patient oriented x3 Extrem Other: Mild osteoarthritic changes of his hands tenderness of bilateral wrists and pain with full flexion and extension Bilateral MCP joint swelling and tenderness. Bilateral PIP joint swelling and tenderness Normal nailfold capillaroscopy Multiple fibromyalgia tender points Results Reviewed Results Reviewed: ORDER #: 09/23/22 [id number] MR/MR hand RT wo/w con IMPRESSION: 1.? Small 2nd metacarpophalangeal with mild synovitis. Trace 1st metacarpophalangeal joint effusion. No associated osseous erosion. No soft tissue mass or fluid collection. 2.? Mild osteoarthritis at the 1st carpometacarpal and 1st metacarpophalangeal joints. 3.? Minimal extensor carpi ulnaris tendinosis. Minimal flexor pollicis longus tenosynovitis. No transverse tendon tear or tendon retraction Assessment & Plan Assessment & Plan (1) Rheumatoid arthritis: Comment: -ve -ve CCP tenosynovitis on hand MRI dx 01/2023 MTX 01/2023 effective DC 02/2023 due to transaminitis Code(s): M06.9 - Rheumatoid arthritis, unspecified Qualifiers: Rheumatoid arthritis location: multiple sites Rheumatoid factor presence: without rheumatoid factor Qualified Code(s): M06.09 - Rheumatoid arthritis without rheumatoid factor, multiple sites Plan: This is a 58-year-old male with seronegative RA who presents for follow-up. Not been seen in about a year. He is not on any DMARDs. Stated that he felt better with methotrexate but it was discontinued due to transaminitis. Hydroxychloroquine can interact with his Keppra. Discussed risks and benefits of sulfasalazine. Patient agreed to proceed. Will start sulfasalazine 500 mg Twice daily and uptitrated to 1000 mg Twice daily Labs before next visit in 2 months (2) Carpal tunnel syndrome, right: Code(s): G56.01 - Carpal tunnel syndrome, right upper limb Plan: Recent EMG/NCV showed mild ulnar and median nerve neuropathy. Patient was evaluated by hand surgeon and was planned for carpal tunnel and cubital tunnel release, patient stated and surgery was canceled due to hypertension (3) On sulfasalazine therapy: Code(s): Z79.899 - Other correction (current) drug therapy Plan: Monitor safety lab (4) Epilepsy: Code(s): G40.909 - Epilepsy, unspecified, not intractable, without status epilepticus Qualifiers: Epilepsy type: unspecified Intractability: not intractable Status epilepticus: without status epilepticus Qualified Code(s): G40.909 - Epilepsy, unspecified, not intractable, without status epilepticus Plan: History of seizure. Patient states that he has not been on his meds for a while now. Advised patient to reach out to his PCP as soon as possible and request refills Patient is complaining of muscle spasm in the right trapezius muscle. He was on cyclobenzaprine in the past. Advised patient to reach out to his PCP and request refill Plan I spent 45 minutes reviewing patient's chart, evaluating patient, ordering diagnostic workup, counseling patient and documenting in the chart Orders: Orders Comprehensive Met. Panel 2 Months M06.9 - Rheumatoid arthritis, unspecified, Z79.631 - residential (current) use of antimetabolite agent Erythrocyte Sedimentation Rate 2 Months M06.9 - Rheumatoid arthritis, unspecified, Z79.631 - residential (current) use of antimetabolite agent T Spot TB 2 Months Z11.7 - Encounter for testing for latent tuberculosis infection Complete Blood Count Auto Diff 2 Months M06.9 - Rheumatoid arthritis, unspecified, Z79.631 - residential (current) use of antimetabolite agent C Reactive Protein 2 Months M06.9 - Rheumatoid arthritis, unspecified, Z79.631 - residential (current) use of antimetabolite agent Hepatitis A,B,C Profile 2 Months Z11.59 - Encounter for screening for other viral diseases Medications: New sulfasalazine give with food (meal/snack) Take 1 tab twice daily for 1 week then 2 tabs with breakfast, 1 tab with dinner for 1 week then 2 tabs Twice daily 120 tabs 1RF Discontinued hydrocodone-acetaminophen 5-325 mg Partial Fill upon patient request. Discontinued Reason: Patient no longer taking 1 tab PO Q8H 7 days PRN 21 tabs 0RF pain (scale score 4-6) Coding Level of Care Code Est Pt Level 5 (65752) Diagnoses Rheumatoid arthritis of multiple sites with negative rheumatoid factor M06.09 Rheumatoid arthritis location: multiple sites Rheumatoid factor presence: without rheumatoid factor Carpal tunnel syndrome, right G56.01 On sulfasalazine therapy Z79.899 Nonintractable epilepsy without status epilepticus, unspecified epilepsy type G40.909 Epilepsy type: unspecified Intractability: not intractable Status epilepticus: without status epilepticus
[2023-12-27 13:01] VITALS: BP 126/78; PULSE 96; O2SAT 98; BMI 27.4
== END 2023-12-27 13:38 | disposition home or self-care (01) ==
LOC: HO.RHE 12:36
PROVIDERS: PCP Nurse Practitioner Primary Care; Visit Provider Student in an Organized Health Care Education/Training Program
DX: M06.09 Rheumatoid arthritis without rheumatoid factor, multiple sites (principal); G56.01 Carpal tunnel syndrome, right upper limb; Z79.899 Other long term (current) drug therapy; G40.909 Epilepsy, unspecified, not intractable, without status epilepticus
CPT/HCPCS: 99215

== ENCOUNTER → 2023-12-27 12:36 | Outpatient (BNVA) | payer MEDICAID, SELFPAY | PROVIDERS: PCP Nurse Practitioner Primary Care; Visit Provider Student in an Organized Health Care Education/Training Program | DX: K42.9 Umbilical hernia without obstruction or gangrene (principal); G40.909 Epilepsy, unspecified, not intractable, without status epilepticus; G56.01 Carpal tunnel syndrome, right upper limb; Z79.899 Other long term (current) drug therapy; M06.9 Rheumatoid arthritis, unspecified; Z11.7 Encounter for testing for latent tuberculosis infection | CPT/HCPCS: 99202; 99212 ==

== ENCOUNTER 2023-12-27 13:47 | Outpatient (AMB) | payer MEDICAID, SELFPAY ==
--- NOTE | 2023-12-27 13:52 | MHC.OFFVIS ---
Intake Intake Visit Reasons: abdominal hernia Intake Note: Patient is seen in office for evaluation and treatment of an umbilical hernia. Pt c/o: feels lump in the abdomen for months, denies increase in size, minimal pain, thinks might also have a hiatal hernia, some times gets nauseas denies, vomit, diarrhea, constipation CT:02/12/23 Correctional Supervisor Lieutenant Required: Yes Correctional Supervisor Lieutenant Language: Lebanese Information Interpreted: non-clinical & clinical Accompanied by: Self / Same As Patient Allergies shellfish derived Allergy (Severe, Verified 12/27/23 14:10) Anaphylaxis Medication List - Last Reconciled 12/27/23 by Asad Lee MD acetaminophen 1,000 mg PO Q6H PRN albuterol sulfate 90 mcg/actuation 2 inhalations inhalation Q4-6H PRN albuterol sulfate 1 amp inhalation Q4-6H PRN amlodipine 5 mg PO DAILY cholecalciferol (vitamin D3) (Vitamin D3) 25 mcg PO DAILY diclofenac sodium 75 mg PO BID PRN [Epi E-Z Pen ] fluticasone propionate 110 mcg/actuation (Flovent HFA) 1 puff inhalation BID fluticasone propionate 50 mcg/actuation 2 sprays intranasal DAILY folic acid 1 mg PO DAILY ibuprofen 800 mg PO TID PRN pantoprazole 20 mg PO QAM sulfasalazine give with food (meal/snack) Take 1 tab twice daily for 1 week then 2 tabs with breakfast, 1 tab with dinner for 1 week then 2 tabs Twice daily [wrist splint wear at night & as much as possible throughout the day] HPI HPI Comments History of Present Illness Details 58-year-old male patient presenting with complaints of a palpable lump in the upper abdomen. He is uncertain how long this has been present but does feel that it has increased in size over the last several months. He does martial arts and feels this may have aggravated the lump. The lump is noted to increase in size with lifting but will reduce when in bed. He denies nausea, vomiting, fever or chills. He does report gastroesophageal reflux and was told that he had a hiatal hernia. He denies previous abdominal surgery the midline. 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 HTN (hypertension) HLD (hyperlipidemia) GERD (gastroesophageal reflux disease) PUD (peptic ulcer disease) JAGJIT on CPAP Asthma Nicotine dependence, cigarettes, uncomplicated History of COVID-19 Depression Chronic knee pain Osteoarthritis of left knee Chronic back pain Degenerative disc disease, cervical Spondylosis of cervical spine Pain in right ankle and joints of right foot Surgical History History of left knee surgery History of cervical spinal surgery History of esophagogastroduodenoscopy (EGD) History of colonoscopy Family History Mother Osteoarthritis Father Alzheimer disease Social History Are you a primary furnace caretaker to a significant other at home: No Do you presently have visiting nurse or other home services: No Alcohol intake: never Patient Tobacco Use Status: Current everyday Tobacco user Tobacco use type: Cigarette Cigarette Packs Per Day: 2 Years Smoked: onset 14, 2ppd x 43yrs, 75+pyh Current occupational status: unemployed Current occupation: rt handed Review of Systems Const All systems reviewed & are unremarkable except as noted in HPI and below Physical Exam Const General: cooperative and no acute distress Nutritional Appearance: well nourished Orientation/consciousness: patient oriented x3 Limitations: no limitations HEENT Head: Yes normocephalic and Yes atraumatic Ears: hearing grossly normal bilaterally Resp Effort & Inspection: normal respiratory effort, no audible wheezes, no cough and no respiratory distress Cardio Jugular venous distension: no JVD GI Inspection: Yes normal to inspection Palpation (GI): Soft to palpation, nontender, no guarding, not rigid and Hernia present (2 cm, reducible ventral hernia) ventral Abdomen image: 1. Site of ventral hernia upper abdomen. Skin Other: Warm, dry, no rash Neuro General: patient oriented x3 Extrem General: Yes no clubbing, cyanosis or edema Assessment & Plan Assessment & Plan (1) Umbilical hernia: Code(s): K42.9 - Umbilical hernia without obstruction or gangrene Qualifiers: Obstruction and gangrene presence: without obstruction or gangrene Qualified Code(s): K42.9 - Umbilical hernia without obstruction or gangrene Plan 58-year-old male patient presenting with a ventral hernia which on examination is approximately 2 cm and reducible. He also has symptoms of esophageal reflux and may have history of hiatal hernia. I recommended GI consultation for the hiatal hernia and suggested repair of this ventral hernia. After discussion of the procedure, risks, and alternatives, he consents to a repair of ventral hernia with mesh. This will be scheduled as a short-stay surgery at his earliest convenience. Orders: Referrals Gastroenterology Referral G40.909 - Epilepsy, unspecified, not intractable, without status epilepticus Coding Level of Care Code New Pt Level 4 (32190) Diagnoses Umbilical hernia without obstruction and without gangrene K42.9 Obstruction and gangrene presence: without obstruction or gangrene
== END 2023-12-27 14:41 | disposition home or self-care (01) ==
PROVIDERS: PCP Nurse Practitioner Primary Care; Referring Provider Nurse Practitioner Primary Care; Visit Provider Surgery
DX: K42.9 Umbilical hernia without obstruction or gangrene (principal)
CPT/HCPCS: 99204

== ENCOUNTER 2024-01-30 07:07 | Day surgery (SDC) | payer MEDICAID, SELFPAY ==
[2024-01-30] VITALS (10 sets, daily range): BP systolic 100–145; BP diastolic 68–92; PULSE 62–100; RESP 15–20; TEMP 36.1–36.4; O2SAT 93–97; BMI 29.2
[2024-01-30] MEDS: Lactated Ringers 1,000 ML 100 ML IVCONT (07:55)
--- NOTE | 2024-01-30 08:47 | P.CONAN_ITS ---
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 (Acute) Nicotine dependence, cigarettes, uncomplicated (Acute) Thoracic outlet syndrome of right thoracic outlet (Acute) Right shoulder pain (Acute) Right knee buckling (Acute) Chronic pain of right ankle (Acute) Carpal tunnel syndrome (Acute) Myalgia (Acute) Right ankle instability (Acute) Numbness and tingling in both hands (Acute) Osteoarthritis of left knee (Acute) Carpal tunnel syndrome, right (Acute) Cubital tunnel syndrome on right (Acute) Cubital tunnel syndrome on left (Acute) Degenerative disc disease, cervical (Acute) Degeneration of intervertebral disc of cervical spine without disc herniation (Acute) Spondylosis of cervical spine (Acute) Past Medical History Medical History History of cerebrovascular accident (CVA) with residual deficit Epilepsy 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 HTN (hypertension) HLD (hyperlipidemia) GERD (gastroesophageal reflux disease) PUD (peptic ulcer disease) JAGJIT on CPAP Asthma Nicotine dependence, cigarettes, uncomplicated History of COVID-19 Depression Chronic knee pain Osteoarthritis of left knee Chronic back pain Degenerative disc disease, cervical Spondylosis of cervical spine Pain in right ankle and joints of right foot Family History Family History Mother Osteoarthritis Father Alzheimer disease Family history of problems with anesthesia: No Surgical History Surgical History History of left knee surgery History of cervical spinal surgery History of esophagogastroduodenoscopy (EGD) History of colonoscopy History of Problems with Anesthesia: No Social History Social History Are you a primary point of care technician to a significant other at home: No Do you presently have visiting nurse or other home services: No Alcohol intake: never Patient Tobacco Use Status: Current everyday Tobacco user Tobacco use type: Cigarette Cigarette Packs Per Day: 2 Years Smoked: onset 14, 2ppd x 43yrs, 75+pyh Are you DNR?: No Advance Directives: No Advance Directives Information Provided: Yes Nutrition Risks: No Nutritional Risk Current occupational status: unemployed Current occupation: rt handed Meds Allergies Allergy/AdvReac Type Severity Reaction Status Date / Time shellfish derived Allergy Severe Anaphylaxis Verified 12/27/23 14:10 Active Medications: Current Medications Acetaminophen (Acetaminophen 325 Mg Tablet) 650 mg PO ONCE PRN PRN Reason: Pain, Mild (Pain Scale 1-3) Stop: 01/30/24 13:56 Albuterol Sulfate (Albuterol Sulfate (0.083%) 2.5 Mg/3 Ml Vial.Neb) 2.5 mg INHALE ONCE PRN PRN Reason: Wheezing Stop: 01/30/24 13:56 Fentanyl (Fentanyl Citrate/Pf 100 Mcg/2 Ml Vial) 25 mcg IVPUSH Q5M PRN; Protocol PRN Reason: Pain, Moderate(Pain Scale 4-6) Stop: 01/30/24 13:56 Hydromorphone HCl (Hydromorphone Hcl 0.5 Mg/0.5 Ml Syringe) 0.5 mg IVPUSH Q5M PRN; Protocol PRN Reason: Pain, Severe (Pain Scale 7-10) Stop: 01/30/24 13:56 Lactated Ringer's (Lr) 1,000 mls @ 100 mls/hr IVCONT .Q10H MEGA Last Admin: 01/30/24 07:55 Dose: 100 mls/hr Ondansetron HCl (Ondansetron Hcl 4 Mg/2 Ml Vial) 4 mg IVPUSH ONCE PRN PRN Reason: Nausea and Vomiting Stop: 01/30/24 13:56 Home Medications ?Medication ?Instructions ?Recorded ?Confirmed ?Last Taken ?Type acetaminophen 500 mg tablet 1,000 mg PO Q6H PRN Pain 05/06/22 12/27/23 Unknown History albuterol sulfate 0.63 mg/3 mL 1 amp inhalation Q4-6H PRN wheezing 05/06/22 12/27/23 Unknown History solution for nebulization fluticasone propionate 110 1 puff inhalation BID 05/06/22 12/27/23 Unknown History mcg/actuation HFA aerosol inhaler (Flovent HFA) fluticasone propionate 50 2 spray intranasal DAILY 05/06/22 12/27/23 Unknown History mcg/actuation nasal spray,suspension pantoprazole 20 mg tablet,delayed 20 mg PO QAM 01/13/23 12/27/23 Unknown History release Epi E-Z Pen 02/25/23 12/27/23 Unknown History amlodipine 5 mg tablet 5 mg PO DAILY 02/25/23 12/27/23 Unknown History cholecalciferol (vitamin D3) 25 25 mcg PO DAILY 02/25/23 12/27/23 Unknown History mcg (1,000 unit) capsule (Vitamin D3) Exam Height,Weight and Vital Signs: Height 5 ft 5 in Weight 79.521 kg Airway Mallampati Class: II TM Dist: >3cm Neck ROM: Limited Loose/Missing/Broken Teeth: No Heart: rrr Lungs: cta Assessment and Plan Final Anesthetic Review Family History of Problems with Anesthesia: No History of Problems with Anesthesia: No NPO: Yes ASA Class: II Final Preanesthetic Review: No Changes in Pt Med Stat, Meds/Allgs Chart Reviewed, Consent Obtained/Reviewed and Anes Risks/Benef Reviewed Patient Risk: Intermediate Procedure Risk: Intermediate Anesthetic Plan Anesthetic Plan: GA Disposition: Standard PACU
--- NOTE | 2024-01-30 08:52 | MHC.SHP ---
Pre-Procedural Eval Section A - 24 Hr Update-Section A only Date of Service: 01/30/24 The patient is an INPATIENT: No Changes since office visit: Yes Patient answered all questions; No Cold of Flu in the past 2 weeks, No New Medical Problems and No Changes in Medication The patient has been examined within 24 hours of the surgical procedure. The History & Physical has been completed within 30 days and I have reviewed it.: No Section B - Complete if H&P > 30 days Chief Complaint: Umbilical hernia without obstruction or gangrene Details of Present Illness: No change from previous evaluation Relevant Family History (Specify if Yes): No Relevant Social History: Tobacco Use Present Medications: see Short Stay Collaborative assessment Medical History: Significant History (epuilepsy, RhA, DJD) History of Previous Operations: No relevant previous surgery Allergies: Allergies Allergy/AdvReac Type Severity Reaction Status Date / Time shellfish derived Allergy Severe Anaphylaxis Verified 12/27/23 14:10 Review of Systems Sugical H&P ROS: Negative: Constitution, Cardiovascular, Respiratory, Neurological, Psychiatric, Hem-Onc, Allergic/Immunologic, Gastrointestinal, Genitourinary, Musculoskeletal, Integumentary, Endocrine and Eyes/Ears/Nose/Throat Exam Surgical H&P Exam: Normal: HEENT, Normal: Heart, Normal: Lungs, Normal: Extremities, Normal: Skin and Normal: Neurological and Significant Findings: Abdomen (ventral hernia upper abdomen, unchanged) Plan Diagnosis/Plan: Unchanged I have reviewed the history and physical and performed a pertinent physical examination on my patient. No changes have occurred unless specified. Time Spent With Patient Time: Total time managing care of this patient today ____ minutes.
--- NOTE | 2024-01-30 09:39 | P.OP_ITS ---
Operative Note Operative Note Date of Service: 01/30/24 Narrative: Preoperative diagnosis: Ventral hernia Postoperative diagnosis: Abdominal wall weakness without neelam hernia Procedure: Plication of abdominal wall without mesh Surgeon: Asad Lee MD Metalsmith Apprentice: Fariha Irizarry PA-C, VALDEZ Alfred Anesthesia: General LMA Indications for procedure: 58-year-old male patient presenting with complaints of a palpable lump in the upper abdomen which increases in size with lifting and straining were reduces in the supine position. Operative findings: Weakness in the upper abdomen longterm between umbilicus and xiphoid. Specimen: None Estimated blood loss: Less than 2 mL Complications: None Procedure details: Patient was brought to the OR and placed in a supine position. The site of palpable lump was previously marked in the preop area. After administering general anesthesia the patient's abdomen was prepped with ChloraPrep and draped in a sterile fashion. A surgical time-out was called the consent confirmed. Patient received preoperative antibiotics and Venodyne boots were in place. Local anesthesia was then infiltrated over the area of palpable abnormality. Incision was then made in the midline carried out through subcutaneous tissue and up to the fascia. The fascia was explored and found to be redundant and weakened in this area without a neelam hernia. The abdomen was explored above and below along the fascia and no other hernia identified. The redundant fascia was then plicated using interrupted 0 Tycron sutures to tight in the area of weakness. No mesh was required at this time. Wounds were then irrigated with saline solution and suctioned dry. Subcutaneous tissue and dermis was then reapproximated using interrupted 3-0 Polysorb sutures. Skin was closed using a running subcuticular 4-0 Polysorb suture. Sterile dressings consisting Steri-Strips and 2 x 2 gauze were then applied followed by Tegaderm. The patient tolerated the procedure well. He was discharged to the PACU in stable condition.
[2024-01-30] MEDS: Ketorolac Tromethamine 30 MG/ML VIAL IVPUSH (10:02)
[2024-01-30] MEDS: fentaNYL citrate/PF 100 MCG/2 ML VIAL 25 MCG IVPUSH (10:13)
== END 2024-01-30 11:33 | disposition home or self-care (01) ==
PROVIDERS: PCP Nurse Practitioner Primary Care; Visit Provider Surgery
PROC: (CPT 49591; principal; 2024-01-30 09:10)
DX: R19.01 Right upper quadrant abdominal swelling, mass and lump (principal); M62.81 Muscle weakness (generalized); M06.9 Rheumatoid arthritis, unspecified; G40.909 Epilepsy, unspecified, not intractable, without status epilepticus; I10 Essential (primary) hypertension; G47.33 Obstructive sleep apnea (adult) (pediatric); Z99.89 Dependence on other enabling machines and devices; Z79.631 Long term (current) use of antimetabolite agent; Z79.899 Other long term (current) drug therapy
CPT/HCPCS: 49591; C9088; J0690; J1885; J2250; J2704; J2795; J3010

== ENCOUNTER → 2024-01-30 07:07 | Outpatient (BNV) | payer MEDICAID, SELFPAY | PROVIDERS: PCP Nurse Practitioner Primary Care; Visit Provider Surgery | DX: K42.9 Umbilical hernia without obstruction or gangrene (principal) | CPT/HCPCS: 49591 ==

== ENCOUNTER 2024-02-09 13:58 | Outpatient (AMB) | payer MEDICAID, SELFPAY ==
--- NOTE | 2024-02-09 14:10 | MHC.OFFVIS ---
Vital Signs 02/09/24 14:13 Height 5 ft 5 in Weight 172 lb BMI 28.6 BP 132/87 Blood Pressure Location Lt brachial Position Sitting Pulse 100 Intake Visit Reasons: S/p ventral hernia repair w/ mesh Intake Note: Patient is seen in office for post op assessment post ventral hernia repair. Patient c/o: admits to sore and tender, been experiencing chest pain on and off Basting Marker Required: Yes Basting Marker Language: Poultice Machine Operator Name: Andreia WATSON Information Interpreted: non-clinical & clinical Accompanied by: Self / Same As Patient Allergies shellfish derived Allergy (Severe, Verified 02/09/24 14:13) Anaphylaxis HPI Comments Details: 58-year-old male patient presenting with complaints of a palpable lump in the upper abdomen. He underwent surgery 1 week ago and was found to have an area of weakness but no neelam hernia. This was tightened using interrupted Tycron sutures. He presents today for postoperative check. He reports some mild discomfort at the incision but is having what he describes as chest pain with palpitations. He is asking if he could return to his martial arts. 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 HTN (hypertension) HLD (hyperlipidemia) GERD (gastroesophageal reflux disease) PUD (peptic ulcer disease) JAGJIT on CPAP Asthma Nicotine dependence, cigarettes, uncomplicated History of COVID-19 Depression Chronic knee pain Osteoarthritis of left knee Chronic back pain Degenerative disc disease, cervical Spondylosis of cervical spine Pain in right ankle and joints of right foot Surgical History H/O ventral hernia repair (01/30/24) History of left knee surgery History of cervical spinal surgery History of esophagogastroduodenoscopy (EGD) History of colonoscopy Family History Mother Osteoarthritis Father Alzheimer disease Social History Are you a primary child care team lead to a significant other at home: No Do you presently have visiting nurse or other home services: No Alcohol intake: never Patient Tobacco Use Status: Current everyday Tobacco user Tobacco use type: Cigarette Cigarette Packs Per Day: 2 Years Smoked: onset 14, 2ppd x 43yrs, 75+pyh Current occupational status: unemployed Current occupation: rt handed Physical Exam Const General: comfortable and no acute distress Nutritional Appearance: well nourished Orientation/consciousness: patient oriented x3 Resp Effort & Inspection: normal respiratory effort GI Other: Midline incision just above the umbilicus is clean, dry, and intact. No hernias palpable. No evidence of wound infection. Inspection: Yes normal to inspection Skin Other: Warm, dry, no rash Neuro General: patient oriented x3 Extrem Other: No edema Assessment & Plan Assessment & Plan (1) Ventral hernia: Code(s): K43.9 - Ventral hernia without obstruction or gangrene Category: Medical Qualifiers: Obstruction and gangrene presence: without obstruction or gangrene Qualified Code(s): K43.9 - Ventral hernia without obstruction or gangrene Plan Patient returns 1 week following repair of a ventral hernia without mesh. He is complaining of chest pain with palpitations therefore I recommended immediate evaluation in the emergency department. He expressed understanding and will be evaluated today. He will return in 1 month for wound examination. He should not lift greater than 10 lb and should avoid martial arts until his next appointment. Coding Level of Care Code Global (83759) Diagnoses Ventral hernia without obstruction or gangrene K43.9 Obstruction and gangrene presence: without obstruction or gangrene
[2024-02-09 14:13] VITALS: BP 132/87; PULSE 100; BMI 28.6
== END 2024-02-09 14:19 | disposition home or self-care (01) ==
PROVIDERS: PCP Nurse Practitioner Primary Care; Visit Provider Surgery
DX: K43.9 Ventral hernia without obstruction or gangrene (principal); R07.9 Chest pain, unspecified
CPT/HCPCS: 99213

== ENCOUNTER 2024-02-09 14:31 | Outpatient (REF) | payer MEDICAID, SELFPAY ==
--- NOTE | ~2024-02-09 | CT_ITS ---
EXAMINATION: CT CHEST SCREENING CLINICAL INFORMATION: Nicotine dependence, cigarettes, uncomplicated. The patient has a 45 pack-year history of smoking, having quit 6 years ago. COMPARISON: CT chest 07/08/2023: Left lower lobe lung nodules, largest measuring 7 mm. This was a baseline exam. X-ray chest 12/28/2020. TECHNIQUE: Multidetector volumetric CT imaging of the chest is performed on a Siemens SOMATOM Definition scanner without contrast using low dose technique. Additional 2D coronal and sagittal reformatted images and axial 3D maximum intensity projection (MIP) images are generated on the CT workstation. This CT examination was performed using dose optimization techniques as appropriate, variously including the following: *Automated exposure control *Adjustment of mA and/or kV according to patient size (this includes techniques or standardized protocols for targeted exams where dose is matched to indication/reason for exam; i.e. extremities or head) *Use of iterative reconstruction technique DLP: 46 mGy-cm FINDINGS: LUNGS: Mild emphysematous changes are seen along with mild saber sheath trachea. The previously ovoid 8 x 6 x 5 mm left lower lobe pulmonary nodule is again seen and unchanged by my measurements on both the new and old study. It should be noted that this demonstrates some rim calcification with attenuation coefficients as high as 306 Hounsfield units (5:392 compare prior 5:445). There is an additional 4 mm left lower lobe nodule which is unchanged (5:218 compare prior 6:255). No new, increasing sized or worrisome pulmonary nodule is seen. The lungs are clear with no evidence of inflammation or nodules. MEDIASTINUM: The mediastinum is normal. CORONARY ARTERY CALCIFICATION: None visualized on this study. PLEURA: There is no pleural effusion. No pleural mass or thickening. AXILLA: No lymphadenopathy. UPPER ABDOMEN: Unremarkable OSSEOUS STRUCTURES: ACDF hardware is noted. No bony destructive lesion seen. CT/CT lung screening IMPRESSION: Stable left lower lobe pulmonary nodules the largest of which measures 8 mm and is calcified. ASSESSMENT: Lung-RADS category 2: Benign RECOMMENDATION: Routine annual low-dose CT screening in 12 months.
== END 2024-02-09 14:32 | disposition home or self-care (01) ==
LOC: HO.CT 14:31
PROVIDERS: PCP Nurse Practitioner Primary Care; Visit Provider Nurse Practitioner Family
DX: Z12.2 Encounter for screening for malignant neoplasm of respiratory organs (principal); F17.210 Nicotine dependence, cigarettes, uncomplicated
CPT/HCPCS: 71271; 99212

== ENCOUNTER 2024-02-17 10:27 | Outpatient (REF) | payer MEDICAID, SELFPAY ==
[2024-02-17 10:51] LABS: MANUAL DIFF FLAG NO
[2024-02-17 11:55] LABS: Basophils Absolute Auto 0.1 X10*3/uL (0.0-0.2); Basophils Percent Auto 0.7 % (0-2); Eosinophils Absolute Auto 0.3 X10*3/uL (0.0-0.4); Eosinophils Percent Auto 3.8 % (0-4); Hematocrit 45.3 % (42.0-52.0); Imm Gran Abs Auto 0.04 X10*3/uL (0.00-0.03); Imm Gran Pct Auto 0.5 % (0.0-0.4); Lymphocytes Absolute Auto 2.1 X10*3/uL (1.2-4.9); Lymphocytes Percent Auto 28.7 % (20-40); Mean Corpuscular HGB Conc 33.1 g/dl (31.0-36.0); Mean Corpuscular Hemoglobin 31.6 pg (27.0-33.0); Mean Corpuscular Volume 95.4 fL (80.0-98.0); Mean Platelet Volume 10.1 fL (9.4-12.4); Monocytes Absolute Auto 0.7 X10*3/uL (0.1-1.2); Monocytes Percent Auto 9.2 % (2-11); Neutrophils Absolute Auto 4.2 x10*3/uL (2.0-8.3); Neutrophils Percent Auto 57.1 % (45-73); Platelet Count 268 X10*3/uL (160-400); Red Blood Count 4.75 X10*6/uL (4.60-5.80); Red Cell Distribution Width 12.9 % (11.0-16.0); White Blood Count 7.3 X10*3/uL (4.8-10.8)
[2024-02-17 12:35] LABS: Erythrocyte Sedimentation Rate 12 MM/HR (0-15)
[2024-02-17 13:10] LABS: Alanine Aminotransferase 22 U/L (0-40); Albumin Level 4.2 g/dL (3.5-5.0); Alkaline Phosphatase 85 U/L (39-117); Anion Gap 12 (12-20); Aspartate Amino Transferase 24 U/L (5-37); Bilirubin Total 0.4 mg/dL (0.0-1.0); Blood Urea Nitrogen 11 mg/dL (9-16); C Reactive Protein 0.98 mg/dL (< or = 0.50); Calcium 9.4 mg/dL (8.4-10.2); Carbon Dioxide 27 mmol/L (22-29); Chloride 105 mmol/L (96-108); Estimated Glomerular Filt Rate > 60; Glucose Random 90 mg/dL (60-115); Sodium 140 mmol/L (135-145); Total Protein 7.4 g/dL (6.5-8.0)
[2024-02-19 19:38] LABS: TS Negative Control Passed; TS Panel A 0; TS Panel B 2; TS Positive Control Passed; TSpotTB Negative (Negative)
[2024-02-20 08:35] LABS: HBS Num1 0.65 mIU/mL (0-7.99); HBc Num1 0.07 S/CO (0.00-0.79); HBsAGNum1 0.24 S/CO (0.00-0.99); Hepatitis A Antibody IgM 0.14 Index (0-0.79); Hepatitis B Core Antibody Nonreactive (Nonreactive); Hepatitis B Surface Antigen Negative (Negative); ~HepC Num1 0.11 S/CO (0.00-0.79); ~Hepatitis A Antibody IgM Nonreactive (Nonreactive); ~Hepatitis B Surface Antibody NONREACTIVE (Nonreactive); ~Hepatitis C Antibody Nonreactive (Nonreactive)
== END 2024-02-17 10:28 | disposition home or self-care (01) ==
LOC: HO.LAB 10:27
PROVIDERS: PCP Nurse Practitioner Primary Care; Visit Provider Student in an Organized Health Care Education/Training Program
DX: Z11.7 Encounter for testing for latent tuberculosis infection (principal); Z11.59 Encounter for screening for other viral diseases; M06.9 Rheumatoid arthritis, unspecified; Z79.631 Long term (current) use of antimetabolite agent
CPT/HCPCS: 36415; 80053; 85025; 85652; 86140; 86481; 86704; 86706; 86709; 86803; 87340

== ENCOUNTER 2024-06-04 13:56 | Outpatient (REF) | payer MEDICAID, SELFPAY ==
--- NOTE | ~2024-06-04 | XR_ITS ---
EXAMINATION: XR ELBOW, LEFT CLINICAL INFORMATION: Left elbow pain COMPARISON: None available. TECHNIQUE: AP, lateral, and oblique views of the left elbow. FINDINGS: The bones and soft tissues are normal. No fracture or joint effusion. Alignment is anatomic. Joint spaces are maintained. XR/XR elbow LT min 3V IMPRESSION: Normal left elbow. Electronically signed by: Adam Hendricks MD 06/08/2024 11:34 AM EDT
== END 2024-06-04 13:57 | disposition home or self-care (01) ==
LOC: HO.HHCX 13:56
PROVIDERS: Visit Provider Student in an Organized Health Care Education/Training Program
DX: M25.522 Pain in left elbow (principal)
CPT/HCPCS: 73080

== ENCOUNTER 2025-03-25 08:27 | Outpatient (REF) | payer MEDICAID, SELFPAY ==
--- NOTE | ~2025-03-25 | XR_ITS ---
EXAMINATION: XR CHEST CLINICAL INFORMATION: increased SOB COMPARISON: Chest 05/30/2021 TECHNIQUE: 2 views of the chest were obtained. FINDINGS: No significant abnormality is noted involving the heart, lungs, mediastinum, bony thorax or soft tissues. XR/XR chest 2V IMPRESSION: Unremarkable chest examination. Electronically signed by: Richard Russo MD 03/25/2025 09:03 AM EDT
[2025-03-25 08:46] LABS: MANUAL DIFF FLAG NO
[2025-03-25 09:14] LABS: Basophils Absolute Auto 0.1 X10*3/uL (0.0-0.2); Eosinophils Absolute Auto 0.3 X10*3/uL (0.0-0.4); Eosinophils Percent Auto 3.9 % (0-4); Hematocrit 44.2 % (42.0-52.0); Hemoglobin 14.8 g/dl (14.0-18.0); Imm Gran Abs Auto 0.03 X10*3/uL (0.00-0.03); Imm Gran Pct Auto 0.4 % (0.0-0.4); Lymphocytes Percent Auto 28.2 % (20-40); Mean Corpuscular HGB Conc 33.5 g/dl (31.0-36.0); Mean Corpuscular Hemoglobin 32.3 pg (27.0-33.0); Mean Corpuscular Volume 96.5 fL (80.0-98.0); Mean Platelet Volume 10.2 fL (9.4-12.4); Monocytes Absolute Auto 0.7 X10*3/uL (0.1-1.2); Monocytes Percent Auto 9.6 % (2-11); Neutrophils Absolute Auto 4.1 x10*3/uL (2.0-8.3); Neutrophils Percent Auto 56.9 % (45-73); Platelet Count 264 X10*3/uL (160-400); Red Blood Count 4.58 X10*6/uL (4.60-5.80); Red Cell Distribution Width 12.4 % (11.0-16.0); White Blood Count 7.2 X10*3/uL (4.8-10.8)
[2025-03-25 09:34] LABS: Albumin Level 4.3 g/dL (3.5-5.0); Alkaline Phosphatase 80 U/L (39-117); Anion Gap 11 (12-20); Aspartate Amino Transferase 33 U/L (5-37); Bilirubin Total 0.4 mg/dL (0.0-1.0); Blood Urea Nitrogen 21 mg/dL (9-16); Calcium 9.4 mg/dL (8.4-10.2); Carbon Dioxide 25 mmol/L (22-29); Chloride 108 mmol/L (96-108); Estimated Glomerular Filt Rate > 60; Glucose Random 104 mg/dL (60-115); Magnesium 2.2 mg/dL (1.6-2.6); Potassium 3.9 mmol/L (3.3-5.1); Sodium 140 mmol/L (135-145); Total Protein 7.1 g/dL (6.5-8.0); Uric Acid 4.5 mg/dL (3.4-7.0)
[2025-03-25 09:46] LABS: Alanine Aminotransferase 60 U/L (0-40)
[2025-03-25 10:27] LABS: Creatinine Urine 302.89 mg/dL; Microalbum/Creatinine Ratio Ur 6.2 ug/mg cr (<30)
== END 2025-03-25 08:28 | disposition home or self-care (01) ==
LOC: HO.LAB 08:27
PROVIDERS: PCP Nurse Practitioner Primary Care; Visit Provider Nurse Practitioner Primary Care
DX: G47.33 Obstructive sleep apnea (adult) (pediatric) (principal); M79.674 Pain in right toe(s); I10 Essential (primary) hypertension; R06.02 Shortness of breath
CPT/HCPCS: 36415; 71046; 80053; 82043; 82570; 83735; 84550; 85025

== ENCOUNTER → 2025-03-25 08:47 | Outpatient (BNV) | payer MEDICAID, SELFPAY | PROVIDERS: PCP Nurse Practitioner Primary Care; Visit Provider Radiology Diagnostic Radiology | DX: R06.02 Shortness of breath (principal) | CPT/HCPCS: 71046 ==

== ENCOUNTER 2025-04-18 09:16 | Outpatient (AMB) | payer MEDICAID, SELFPAY ==
--- OUTSIDE RECORDS SUMMARY | 2025-04-15 15:30 | XMS_ITS | Encounter Summary ---
Author Organization [employer] Address [address] [facility] [address] [place] [address] Care Team Providers Care Survey Research Analyst Name Role Phone Rayne Bolivar Primary Care Provider [phone] Reason for Visit * Reason Comments nurse visit BP check Encounter Details Date Type Department Care Team (Latest Contact Info) Description 04/15/2025 3:30 PM EDT Clinical Support [facility] [address] [place] [address] Rosmery Alvarado RN Primary hypertension Social History Tobacco Use Types Packs/Day Years Used Date Smoking Tobacco: Every Day Cigarettes Last attempted to quit: 03/10/2023 Passive Smoke Exposure: Past Smokeless Tobacco: Never Alcohol Use Standard Drinks/Week Comments Not Currently 0 (1 standard drink = 0.6 oz pur e alcohol) Depression Answer Date Recorded Patient Health Questionnaire-9 Score 21 06/25/2024 Patient Health Questionnaire-9 Score 21 06/25/2024 Last PHQ-9: Questionnaire Data Not on file 0 06/25/2024 Housing Stability Answer Date Recorded What is your housing situation today? I have mony [place] 03/13/[address] you li ve. Do you have problems with any of the following? None of the above 03/13/2025 Food Insecurity Answer Date Recorded Within the past 12 months, y ou worried that your food would run out before you got money to buy more: Never True 03/13/2025 Within the past 12 months,th e food you bought just didn't last and you didn't have enough money to get more: Never True 01/2025 Transportation Answer Date Recorded In the past 12 months, has l ack of transportation kept you from medical appts, meetings, work or from getting things needed for daily living? No 03/13/2025 Utilities Answer Date Recorded In the past 12 months, has t he electric, gas, oil or water company threatened to shut off services in your home? No 03/13/2025 Depression Answer Date Recorded Patient Health Questionnaire-2 Score 6 06/25/2024 Internet Access Answer Date Recorded Internet Access Q1 Yes 03/13/2025 Internet Access Q2 Not on file 03/13/2025 Sex and Gender Information Value Date Recorded Sex Assigned at Male 08/09/2022 10:36 AM EDT Legal Sex Male 10:36 AM EDT Gender Identity Male 11/11/2022 3:08 PM EST Sexual Orientation Straight 08/09/2022 10 :36 AM EDT documented as of this encounter Last Filed Vital Signs Vital Sign Reading Time Taken Comments Blood Pressure 128/98 04/15/2025 3:22 PM EDT Pulse 100 04/15/2025 3:10 PM EDT Temperature - - Respiratory Rate - - Oxygen Saturation 96% 04/15/2025 3:10 PM EDT room air Inhaled Oxygen Concentration - - Weight - - Height - - Body Mass Index - - documented in this encounter Progress Notes * Rosmery Alvarado RN - 04/15/2025 3:30 PM EDT SUBJECTIVE: Ministerio Hernandez is a 59 y.o. year old male who presents for nurse visit BP check Preferred language for medical information: Turner Splitter Machine Operator needed: Yes, Bushra WATSON Recommendations at last visit were take blood pressure medication as prescribed, RN BP visit in 1 month, monitor home BP. Last BP at PCP visit was 150/100. Today, Ministerio Hernandez does not complain of any blurred vision, shortness of breath, chest pain, dizziness, or headaches. Pt reports intermittent vertigo while moving, says it is chronic problem. He also reports upper mid-abdominal pain, reports this is ongoing problem related to hernia. This wasdiscussed with PCP at 03/13/25 visit, referral to General Surgery and appt on 04/18/25 at 10:00AM. Ministerio Hernandez does confirm adherence to medications for hypertension listed above. Pt reports taking amlodipine 10mg at 6pm. Reports last cigarette was 10 days ago. Reports taking home BP but no records available. Tobacco Use History[1] Social History Substance and Sexual Activity Alcohol Use Not Currently Social History Substance and Sexual Activity Drug Use Not Currently BP Readings from Last 4 Encounters: 04/15/25 (!) 128/98 03/13/25 (!) 150/100 11/14/24 (!) 133/92 09/13/24 (!) 144/89 Pulse Readings from Last 4 Encounters: 04/15/25 100 03/13/25 (!) 111 11/14/24 77 09/13/24 93 OBJECTIVE: Vitals: 04/15/25 1510 04/15/25 1522 BP: (!) 142/102 (!) 128/98 BP Location: Left arm Right arm Patient Position: Sitting Sitting BP Cuff Size: Adult Adult Pulse: 100 SpO2: 96% ASSESSMENT: Goal blood pressure of <130/80; not at goal. PLAN: Today's findings reviewed with covering provider Dr Trotter who recommends: - take amlodipine 10mg in AM - record home BP 1x daily (gave pt new BP log) - short term PCP follow up in ~2 weeks. Scheduled as below. Ministerio Hernandez advised to continue taking medications as directed and reinforcement of lifestylemodifications including low sodium diet and exercise were reviewed. Advised to call [facility] if BP consistently >150/90 or if sxs of hypertension present, to go to ED. Reviewed with pt upcoming , general surgery appts. Ministerio Hernandez agreeable to plan discussed at today's visit. Future Appointments Date Time Provider Department Center 04/17/2025 9:30 AM Ramses Macedo [facility] 05/02/2025 11:15 AM FARIDEH Lawrence [facility] 06/04/2025 2:00 PM FARIDEH Lawrence [facility] Rosmery Alvarado RN [1] Social History Tobacco Use Smoking Status Every Day Current packs/day: 0.00 Types: Cigarettes Last attempt to quit: 03/10/2023 Years since quittin.1 Passive exposure: Past Smokeless Tobacco Never documented in this encounter Plan of Treatment Upcoming Encounters Date Type Department Care Team (Late st Contact Info) Description 05/02/2025 11:15 AM EDT Office Visit [facility] [address] [place] [phone] Rayne Bolivar ANP [address] [place], [place] [phone] 06/04/2025 2:00 PM EDT Office Visit [facility] [address] [place] [address] Rayne Bolivar ANP [address] [place], [place] [phone] documented as of this encounter Visit Diagnoses Diagnosis Primary hypertension Unspecified essential hypertension documented in this encounter Additional Health Concerns Assessment Noted Time PHQ-9 Depression Total Score: 21 024 11:53 AM EDT documented as of this encounter Care Teams Survey Research Analyst Relationship Specialty Start Date End Date Rayne Bolivar ANP [address] [place] [address] PCP - General Family Medicine 06/03/[address] Train DriverCan Filler 07/26/24 documented as of this encounter
--- NOTE | 2025-04-18 09:18 | MHC.OFFVIS ---
Vital Signs 04/18/25 09:29 Height 5 ft 7 in Weight 194 lb 6 oz BMI 30.4 BP 161/108 H Blood Pressure Location Lt brachial Position Sitting Pulse 104 H Intake Visit Reasons: ventral hernia Intake Note: Patient is seen in office for recurrent hernia, post ventral hernia repair on 01/2024. Pt c/o: feels a lump above the prior hernia repair scar, has reflux, nausea, constipation, abdomen feels bloated at all times Field Recruiter Required: Yes Field Recruiter Language: Billing Services Manager Name: Andreia WATSON Information Interpreted: non-clinical & clinical Retail Warehouse Supervisor: Retail Warehouse Supervisor Present Accompanied by: Self / Same As Patient Allergies shellfish derived Allergy (Severe, Verified 04/18/25 09:27) Anaphylaxis Medication List - Last Reconciled 04/18/25 by Asad Lee MD acetaminophen 1,000 mg PO Q6H PRN albuterol sulfate 90 mcg/actuation 2 inhalations inhalation Q4-6H PRN albuterol sulfate 1 amp inhalation Q4-6H PRN amlodipine 5 mg PO DAILY amlodipine 10 mg PO DAILY cholecalciferol (vitamin D3) (Vitamin D3) 25 mcg PO DAILY diclofenac sodium 75 mg PO BID PRN [Epi E-Z Pen ] fluticasone propionate 110 mcg/actuation (Flovent HFA) 1 puff inhalation BID fluticasone propionate 50 mcg/actuation 2 sprays intranasal DAILY folic acid 1 mg PO DAILY ibuprofen 800 mg PO TID PRN oxycodone 5 mg PO Q6H PRN pantoprazole 20 mg PO QAM sulfasalazine 1 g (2 x 500 mg) PO BID [wrist splint wear at night & as much as possible throughout the day] HPI Comments Details: 59-year-old male patient returning for re-evaluation of his abdominal wall. He previously underwent a repair of a ventral hernia however now feels a new lump located above the previous incision. He reports this is causing discomfort as well as evidence of reflux. The lump does seem to move around especially when in bed. He reports pain when the lesion is palpated. A CT abdomen and pelvis performed in the emergency department on 02/12/2025 does review a small fat containing umbilical hernia however in the area described by the patient above the previous incision does not reveal evidence of a ventral hernia at that time. The images were reviewed with the patient today. He feels this lump has developed since the ED visit. 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 HTN (hypertension) HLD (hyperlipidemia) GERD (gastroesophageal reflux disease) PUD (peptic ulcer disease) JAGJIT on CPAP Asthma Nicotine dependence, cigarettes, uncomplicated History of COVID-19 Depression Chronic knee pain Osteoarthritis of left knee Chronic back pain Degenerative disc disease, cervical Spondylosis of cervical spine Pain in right ankle and joints of right foot Surgical History History of ventral hernia repair History of left knee surgery History of cervical spinal surgery History of esophagogastroduodenoscopy (EGD) History of colonoscopy Family History Mother Osteoarthritis Father Alzheimer disease Social History Are you a primary housekeeper caregiver to a significant other at home: No Do you presently have visiting nurse or other home services: No Alcohol intake: never Patient Tobacco Use Status: Current everyday Tobacco user Tobacco use type: Cigarette Cigarette Packs Per Day: 2 Years Smoked: onset 14, 2ppd x 44yrs, 75+pyh Current occupational status: unemployed Current occupation: rt handed Review of Systems Const All systems reviewed & are unremarkable except as noted in HPI and below Physical Exam Vital Signs: Last Vital Signs Pulse 104 H 04/18/25 09:29 BP 161/108 H 04/18/25 09:29 BMI result Body Mass Index 30.4 Const General: comfortable Nutritional Appearance: well nourished Orientation/consciousness: patient oriented x3 Limitations: ambulation with cane Resp Effort & Inspection: normal respiratory effort GI Other: Soft, non distended, tender at the midline above the previous incision with an obvious bump noted on examination. This measures approximately 2 cm in diameter and does not seem to change with Valsalva maneuvers. Lump is not reducible. Abdomen image:  1. Previous incision 2. Site of palpable lump in upper midline, 2 cm in diameter Neuro General: patient oriented x3 Assessment & Plan Assessment & Plan (1) H/O ventral hernia repair: Onset Date: 01/30/24 Comment: Asad Lee MD Code(s): Z98.890 - Other specified postprocedural states; Z87.19 - Personal history of other diseases of the digestive system Category: Surgical Plan 59-year-old male patient with a previous history of a ventral hernia repair now presenting with a new lump located above the previous incision which is suggestive of a new ventral hernia. The lump does not seem to increase in size with Valsalva maneuvers nor reduce but does cause discomfort with palpation. I recommended further evaluation with a limited ultrasound of the abdomen. He will return following this study to review the results and discuss treatment options. Orders: Orders US abdomen limited Today Z87.19 - Personal history of other diseases of the digestive system, Z98.890 - Other specified postprocedural states Coding Level of Care Code Est Pt Level 3 (41298) Diagnoses H/O ventral hernia repair Z98.890; Z87.19
[2025-04-18 09:29] VITALS: BP 161/108; PULSE 104; BMI 30.4
== END 2025-04-18 09:56 | disposition home or self-care (01) ==
LOC: HO.HGS 09:17
PROVIDERS: PCP Nurse Practitioner Primary Care; Visit Provider Physician Assistant Surgical
DX: K43.5 Parastomal hernia without obstruction or gangrene (principal); Z98.890 Other specified postprocedural states; Z87.19 Personal history of other diseases of the digestive system
CPT/HCPCS: 99213

== ENCOUNTER 2025-05-03 07:28 | Outpatient (REF) | payer MEDICAID, SELFPAY ==
--- NOTE | ~2025-05-03 | US_ITS ---
CLINICAL HISTORY: Z98.890 - Other specified postprocedural states --- Additional Notes or Special Instructions: palpable lump above previous hernia repair in midline, possible ventral US abdominal wall nonvascular Comparison: CT - CT ABDOMEN PELVIS WITH IV CONTRAST - 02/12/23 10:[address]/SR - CT ABDOMEN PELVIS WITH IV CONTRAST - 02/12/23 09:45 EDT Findings: Sonographic evaluation in the area of clinical concern anterior abdominal wall where there is a palpable abnormality superior to the previous hernia repair scar. There is a circumscribed hyperechoic avascular lesion in the subcutaneous soft tissues in horizontal orientation most consistent with a subcutaneous lipoma measuring 19 x 7 x 24 mm. Targeted ultrasound over the area of previous hernia repair showed no sonographic abnormalities in this region. Impression: Findings most consistent with a subcutaneous lipoma in the area of clinical concern anterior abdominal wall superior to the previous hernia repair site. No sonographic evidence of a recurrent hernia was demonstrated at the site of surgical repair. This document has been electronically signed by: Bo Zee MD on 05/03/2025 14:38:41
--- OUTSIDE RECORDS SUMMARY | 2025-05-03 07:30 | XMS_ITS | Encounter Summary ---
Author Organization [employer] Address [address] [facility] [address] [place] [address] Care Team Providers Care Welder Fitter Apprentice Name Role Phone Rayne Bolivar Primary Care Provider [phone] Encounter Details Date Type Department Care Team (Latest Contact Info) Description 05/02/2025 Travel Social History Tobacco Use Types Packs/Day Years Used Date Smoking Tobacco: Every Day Cigarettes Last attempted to quit: 03/10/2023 Passive Smoke Exposure: Past Smokeless Tobacco: Never Alcohol Use Standard Drinks/Week Comments Not Currently 0 (1 standard drink = 0.6 oz pur e alcohol) Depression Answer Date Recorded Patient Health Questionnaire-9 Score 15 04/22/2025 Patient Health Questionnaire-9 Score 15 04/22/2025 Last PHQ-9: Questionnaire Data Not on file 0 04/22/2025 Housing Stability Answer Date Recorded What is [...] Date Recorded Patient Health Questionnaire-2 Score 6 04/22/2025 Internet Access Answer Date Recorded Internet Access Q1 Yes 03/13/2025 Internet Access Q2 Not on file 03/13/2025 Sex and Gender Information Value Date Recorded Sex Assigned at Male 08/09/2022 10:36 AM EDT Legal Sex Male 10:36 AM EDT Gender Identity Male 11/11/2022 3:08 PM EST Sexual Orientation Straight 08/09/2022 10 :36 AM EDT documented as of this encounter Plan of Treatment Upcoming Encounters Date Type Department Care Team (Late st Contact Info) Description 06/04/2025 2:00 PM EDT Office Visit [facility] [address] [place] [address] Rayne Bolivar ANP [address] [place] [address] documented as of this encounter Visit Diagnoses Not on filedocumented in this encounter Additional Health Concerns Assessment Noted Time PHQ-9 Depression Total Score: 15 025 8:48 AM EDT documented as of this encounter Care Teams Welder Fitter Apprentice Relationship Specialty Start Date End Date Rayne Bolivar ANP [address] [place] [phone] PCP - General Family Medicine 06/03/21 Cecilia Hunter Custodial WorkerHi Lift Operator 07/26/24 documented as of this encounter
== END 2025-05-03 07:29 | disposition home or self-care (01) ==
LOC: HO.US 07:28
PROVIDERS: Visit Provider Surgery
DX: Z98.890 Other specified postprocedural states (principal); Z87.19 Personal history of other diseases of the digestive system
CPT/HCPCS: 76705

== ENCOUNTER → 2025-05-03 07:31 | Outpatient (BNV) | payer MEDICAID, SELFPAY | PROVIDERS: Visit Provider Radiology Diagnostic Radiology | DX: Z98.890 Other specified postprocedural states (principal) | CPT/HCPCS: 76705 ==

== ENCOUNTER 2025-05-16 09:31 | Outpatient (AMB) | payer MEDICAID, SELFPAY ==
--- NOTE | 2025-05-16 09:38 | A.OFFVIS_ITS ---
Vital Signs 05/16/25 09:43 Height 5 ft 7 in Weight 193 lb BMI 30.2 BP 148/94 H Blood Pressure Location Lt brachial Position Sitting Pulse 94 Intake Visit Reasons: ultrasound results, hernia Intake Note: Patient is seen in office for ultrasound results, following hernia. Pt c/o: us:05/03/25 Building Serviceman Required: Yes Building Serviceman Language: Try On Baster Services: Building Serviceman Present Building Serviceman Name: Andreia WATSON Information Interpreted: non-clinical & clinical Distribution Field Engineer: Distribution Field Engineer Present Accompanied by: Self / Same As Patient Allergies shellfish derived Allergy (Severe, Verified 05/16/25 09:42) Anaphylaxis HPI Comments Details: 59-year-old male patient returning for re-evaluation of his abdominal wall. He previously underwent a repair of a ventral hernia however now feels a new lump located above the previous incision. He reports this is causing discomfort as well as evidence of reflux. The lump does seem to move around especially when in bed. He reports pain when the lesion is palpated. A CT abdomen and pelvis performed in the emergency department on 02/12/2025 does review a small fat containing umbilical hernia however in the area described by the patient above the previous incision does not reveal evidence of a ventral hernia at that time. The images were reviewed with the patient today. He was subsequently evaluated with ultrasound of the abdomen which confirmed a soft tissue mass suggestive of a lipoma in the area of palpable abnormality. No hernia could be identified. Since his last visit he now reports increased abdominal distention, bloating, and reflux which has increased since his previous ED visit. He is concerned that this lipoma may be causing the increased symptoms. 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 HTN (hypertension) HLD (hyperlipidemia) GERD (gastroesophageal reflux disease) PUD (peptic ulcer disease) JAGJIT on CPAP Asthma Nicotine dependence, cigarettes, uncomplicated History of COVID-19 Depression Chronic knee pain Osteoarthritis of left knee Chronic back pain Degenerative disc disease, cervical Spondylosis of cervical spine Pain in right ankle and joints of right foot Surgical History History of ventral hernia repair History of left knee surgery History of cervical spinal surgery History of esophagogastroduodenoscopy (EGD) History of colonoscopy Family History Mother Osteoarthritis Father Alzheimer disease Social History Are you a primary primary care physician to a significant other at home: No Do you presently have visiting nurse or other home services: No Alcohol intake: never Patient Tobacco Use Status: Current everyday Tobacco user Tobacco use type: Cigarette Cigarette Packs Per Day: 2 Years Smoked: onset 14, 2ppd x 44yrs, 75+pyh Current occupational status: unemployed Current occupation: rt handed Review of Systems Const All systems reviewed & are unremarkable except as noted in HPI and below Physical Exam Vital Signs: Last Vital Signs Pulse 94 05/16/25 09:43 BP 148/94 H 05/16/25 09:43 BMI result Body Mass Index 30.2 Const General: comfortable Nutritional Appearance: well nourished Orientation/consciousness: patient oriented x3 Limitations: ambulation with cane Resp Effort & Inspection: normal respiratory effort GI Other: Soft, non distended, tender at the midline above the previous incision with an obvious bump noted on examination. This measures approximately 2 cm in diameter and does not seem to change with Valsalva maneuvers. Lump is not reducible. Neuro General: patient oriented x3 Assessment & Plan Assessment & Plan (1) GERD (gastroesophageal reflux disease): Code(s): K21.9 - Gastro-esophageal reflux disease without esophagitis Category: Medical (2) Abdominal bloating: Code(s): R14.0 - Abdominal distension (gaseous) Category: Medical Plan Patient returns for re-evaluation of the palpable lump in the upper abdomen which appears to be a lipoma by ultrasound. Patient also reports increased abdominal bloating and reflux symptoms which seems to be worsening since his ED visit. I recommended repeating the CT abdomen and pelvis for better evaluation of his small-bowel for evidence of obstruction. In addition I recommended a GI consultation for the reflux symptoms. He will return following the CT results and discuss treatment options. He wishes to have the lipoma removed but will wait until after the CT to schedule the surgery. Orders: Orders CT abdomen pelvis w IV con Today R14.0 - Abdominal distension (gaseous) Referrals Gastroenterology Referral K21.9 - Gastro-esophageal reflux disease without esophagitis, R14.0 - Abdominal distension (gaseous) Coding Level of Care Code Est Pt Level 3 (31565) Diagnoses GERD (gastroesophageal reflux disease) K21.9 Abdominal bloating R14.0
[2025-05-16 09:43] VITALS: BP 148/94; PULSE 94; BMI 30.2
--- OUTSIDE RECORDS SUMMARY | 2025-05-16 09:56 | XMS_ITS | Clinical Summary ---
Author Organization [employer] Address [address] [facility] [address] [place] [address] Care Team Providers Care International Account Executive Name Role Phone Gareth Mo Primary Care Provider [phone] Allergies Active Allergy Reactions Criticality Noted Date Comments Shellfish-Derived Products Anaphylaxis High 09/28/20 21 Medications * This document contains information received from the source organization and may not represent a complete record from that organization. acetaminophen (Tylenol) 500 MG tablet 03/03/20 21 Active cholecalciferol (Vitamin D-3) 1.25 MG (46949 UT) capsule 09/17/20 19 Active EPINEPHrine (Epipen) 0.3 MG/0.3ML injection syringe Inject 0.3 mg into the muscle. 08/10/20 21 Active levETIRAcetam (Keppra) 1000 MG tablet Take 1 tablet by mouth every 12 (twelve) hours. 08/10/20 21 Active albuterol 0.63 MG/3ML nebulizer solutionIndicati ons:Moderate persistent asthma without complication use as needed for SOB/wheezing, up to every 4-6 hours 75 mL 2 11/11/19 23 Active folic acid (Folvite) 1 MG tablet Take by mouth Once per day. Active nicotine (Nicoderm, Step 2) 14 MG/24HR patchIndications :Nicotine Dependence Place 1 patch on the skin 1 (one) time each day at the same time. 14 patch 02/25/20 23 Active nicotine (Nicoderm, Step 3) 7 MG/24HR patchIndications :Nicotine Dependence,use nicotine patch daily x 14 days and then start 7 mg daily for [address] 1 patch on the skin 1 (one) time each day at the same time. 28 patch 02/25/20 23 Active Diclofenac Sodium (Voltaren) 1 % gel Use topical BID 100 g 3 06/04/20 24 Active budesonide-formo terol (Symbicort) 160-4.5 MCG/ACT inhalerIndicatio ns:Moderate persistent asthma without complication Inhale 2 puffs in the morning and at bedtime. Rinse mouth with water after use to reduce aftertaste and incidence of candidiasis. Do not swallow. 1 each 11 06/25/20 24 025 Active cyclobenzaprine (Flexeril) 10 MG tabletIndication s:Other chronic back pain Take 1 tab at bedtime as needed for back pain 30 tablet 1 06/25/20 24 Active Blood Pressure kitIndications:E levated blood pressure reading without diagnosis of hypertension 1 kit Once per day. 1 kit 09/13/20 24 Active albuterol 108 (90 Base) MCG/ACT inhalerIndicatio ns:Cough, unspecified type inhale 2 puffs by Inhalation route 4 times every day as needed 18 g 2 11/14/19 25 Active amLODIPine (Norvasc) 10 MG tablet Take 1 tablet (10 mg) by mouth Once per day. 30 tablet 11 11/14/19 25 026 Active Umeclidinium [place] (Incruse Ellipta) 62.5 MCG/ACT aerosol powderIndication s:Moderate persistent asthma without complication Inhale 1 Act (62.5 mcg) Once per day. 30 each 2 03/13/20 25 Active pantoprazole (ProtoNix) 20 MG EC tabletIndication s:Gastroesophage al reflux disease with esophagitis without hemorrhage,Anxie ty Take 1 tablet (20 mg) by mouth before breakfast. 90 tablet 2 03/13/20 25 Active hydroCHLOROthiaz yahaira 12.5 MG tabletIndication s:Primary hypertension Take 1 tablet (12.5 mg) by mouth Once per day. 90 tablet 05/02/20 25 026 Active famotidine (Pepcid) 20 MG tablet Take 20 mg by mouth. 10/12/19 22 025 Discontinu ed(Therapy completed) meloxicam (Mobic) 7.5 MG tablet Take 1 tablet (7.5 mg) by mouth 2 times daily. 60 tablet 11 06/04/20 24 025 Discontinu ed(Therapy completed) zoster vaccine-recombin ant adjuvanted (Shingrix) 50 MCG/0.5ML vaccine Inject 0.5 mL (50 mcg) into the muscle 1 (one) time for 1 dose. Repeat as directed 1 each 1 05/02/20 25 025 Active Problems Problem Noted Date Diagnosed Date Severe episode of recurrent major depressive disorder, with psychotic features 04/17/2025 Degeneration of intervertebr al disc of cervical spine without disc herniation 06/25/2024 Preoperative clearance 02/24/2023 Assessment & Plan (02/24/2023 6:58 PM EDT): RCRI is 1 for low risk procedure but to be done under general anesthesia ,need to monitor closely and careful for neck manipulation with hx of cervical surgery -EKG today NSR,normal with no ischemic findings -preop labs requested are CBC and chem -to be done today ,will also check TSH to monitor x mild elevated HR however wnl in EKG -possible from previous albuterol use ? -will Try to improve asthma control and BP -when lab results are back --I will call pt and will check how is his BP by home BP monitoring and specially his asthma control , if better will write clearance letter to have it fax w last EKG and labs to his surgeon -explained pt to avoid any NSAIDs or ASA 7 days prior procedure -explained that on Day of surgery if cleared will need to hold on his meds, except on keppra-he should take it with a sip of water And ,symbicort to use on day of surgery Hypertension 02/24/2023 Assessment & Plan (02/24/2023 6:52 PM EDT): Newly dxed HTN --has several readings with specially diastolic BP elevated , states at home checks few times BP but noted some Bps > 140/ 90 To 100s -will start today amlodipine 5 mg daily -advised to keep at w PCP in 4 weeks to monitor BP -will need to have microalb check and ophthalmology referral if not seen in last years at future visits -cards referral today x eval but not x clearance Occasional tobacco smoker 02/24/2023 Assessment & Plan (02/24/2023 6:49 PM EDT): Hx of tobacco smoker -stopped x years but again smoking x last 5 years but states only 1 cigarette that last for 3 days -advised this can be affecting his asthma control and pt would like to stop -prescribed nicotine patches 14 mg daily x 14 days and then 7 mg x 4 weeks and nicotrol prn Seronegative rheumatoid arthritis 01/26/2023 Overview (02/20/2024): Diagnosed via Dr. Diane[facility] 01/2023 methotrexate stopped 02/2023 d/t transaminitis though was effective. Hydroxychloroquine can interact w/ keppra. 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 Off meds -not taking methotrexate x last 10 days -no plan to resume Ankle pain 11/11/2022 Chronic back pain 11/11/2022 Dyslipidemia 11/11/2022 Food insecurity 11/11/2022 Gastroesophageal reflux disease 11/11/2022 Helicobacter pylori gastrointestinal tract infec tion 11/11/2022 Mixed anxiety and depressive disorder 11/11/2022 Obstructive sleep apnea syndrome 11/11/2022 Assessment & Plan (02/24/2023 6:38 PM EDT): Chronically on CPAP -per Pt to get his mask this week Advised to resume using machine Overweight 11/11/2022 Pain in wrist 11/11/2022 Primary osteoarthritis of left knee 11/11/2022 Seizure disorder 11/11/2022 Assessment & Plan (02/24/2023 6:38 PM EDT): -reports to be controlled on keppra -f w neurologist -last episode 1 year ago Vitamin D deficiency 11/11/2022 Weakness of hand 11/11/2022 Moderate persistent asthma without complication 11/11/2022 Assessment & Plan (06/25/2024 11:15 AM EDT): >>ASSESSMENT AND PLAN FOR MILD INTERMITTENT ASTHMA WRITTEN ON 02/24/2023 6:40 PM BY INES VALENCIA MD Asthma is better controlled w flovent but pt only using daily -using albuterol once a day -will start Symbicort 2 puff BID and stop flovent and continue albuterol prn -pt has apt w PCP in 4 weeks already schedule to f asthma control Encounters * This document contains information received from the source organization and may not represent a complete record from that organization. Date Type Department Care Team Description 05/02/2025 11:15 AM EDT Office Visit [address] [address] Gareth Mo ANP Primary hypertension (Primary Dx); Dyslipidemia; Obstructive sleep apnea syndrome; Moderate persistent asthma without complication 05/02/2025 Travel 05/01/[address] [address] Gareth Mo ANP chart prep 04/15/2025 3:30 PM EDT Clinical Support [address] [address] Rosmery Alvarado RN Primary hypertension 04/15/2025 Travel 03/25/2025 Results Follow-Up [address] [address] Gareth Mo ANP CBC auto differential, Comprehensive Metabolic Panel, Albumin, Random Urine W/Creatinine, Magnesium 03/13/2025 3:30 PM EDT Office Visit [address] [address] Gareth Mo ANP Sleep disturbance (Primary Dx); Obstructive sleep apnea syndrome; Primary hypertension; Ventral hernia without obstruction or gangrene; Moderate persistent asthma without complication; SOB (shortness of breath); Gastroesophageal reflux disease with esophagitis without hemorrhage; Anxiety; Screening for malignant neoplasm of colon 03/13/2025 Travel 03/12/[address] [address] Gareth Mo ANP Chart Prep 03/11/[address] [address] Gareth Mo ANP Nurse Triage from Last 3 Months Immunizations Immunization Administration Dates Next Due Hep A, Adult 11/14/2019 Hep B, adult 12/20/2019,11/14/2019 Influenza injectable quadriv alent preservative free 11/11/2022,08/10/2021,08/26/2020,09/14 Influenza, IIV3, injectable 08/04/2010 Influenza, seasonal, injecta ble, preservative free 06/25/2024 Janie SARS-CoV-2 Vaccination 01/14/2021 Pfizer Covid-19 Vaccine 12+ 10/05/2021 Pfizer Covid-19 Vaccine 12+ Bivalent 11/11/2022 Pneumococcal Conjugate PCV 20 12/09/2023 Pneumococcal Polysaccharide PPSV23 08/04/2010 Tdap 09/14/2019 Family History Medical History Relation Name Comments Cancer Brother prostate Leukemia Brother Relation Name Status Comments Brother Social History Tobacco Use Types Packs/Day Years Used Date Smoking Tobacco: Every Day Cigarettes Last attempted to quit: 03/10/2023 Passive Smoke Exposure: Past Smokeless Tobacco: Never Tobacco Cessation:Ready to Q uit: Not Asked; Counseling Given: Not Answered Alcohol Use Standard Drinks/Week Comments Not Currently [...] Orientation Straight 08/09/2022 10 :36 AM EDT Last Filed Vital Signs Vital Sign Reading Time Taken Comments Blood Pressure 144/110 05/02/2025 11:50 AM EDT Pulse 92 05/02/2025 11:26 AM EDT Temperature 36.3 C (97.4 F) 11/14/2024 12:15 PM EST Respiratory Rate 16 05/02/2025 11:26 AM EDT Oxygen Saturation 96% 04/15/2025 3:10 PM EDT room air Inhaled Oxygen Concentration - - Weight 86.6 kg (191 lb) 05/02/2025 11:26 AM EDT Height 170.2 cm (5' 7 ) 05/02/2025 11:26 AM EDT Body Mass Index 29.91 05/02/2025 11:26 AM EDT Plan of Treatment Upcoming Encounters Date Type Department Care Team (Late st Contact Info) Description 05/21/2025 11:00 AM EDT Clinical Support [address] [address] 06/04/2025 2:00 PM EDT Office Visit [facility] [address] [place] [phone] Gareth Mo, FARIDEH [address] [place] [phone] Health Maintenance Due Date Last Done Comments CT Colonography 1966 FIT DNA/Cologuard 1965 FIT 1965 FOBT 1965 Lipid Panel 1965 Sigmoidoscopy 1965 Zoster Vaccines (1 of 2) 2016 Hepatitis B Vaccines (3 of 3 - 19+ 3-dose series) 05/14/2020 12/20/2019, 11/14/2019 COVID-19 Vaccine ( season) 2024 11/11/2022, 10/05/2021, 01/14/2021 Colonoscopy 12/17/2024 12/18/2019 Colorectal Cancer Screening 12/17/2024 Influenza Vaccine (#1) 2025 , 11/11/2022, 08/10/2021, Additional history exists Depression Monitoring 10/23/2025 04/22/2025, 025 Disability Screening 03/13/2026 03/13/2025 SDOH Screening 03/13/2026 03/13/2025 Alcohol/Substance Use Screening 05/02/2026 05/02/2025 Tobacco Screening 05/02/2026 05/02/2025 DTaP/Tdap/Td Vaccines (2 - Td or Tdap) 09/14/2029 09/14/2019 RSV Patients and Patients Aged 60 years or older (1 - 1-dose 75+ series) 2041 HIV Screening Completed 09/17/2019 Hepatitis A Vaccines Aged Out 11/14/2019 No long er eligible based on patient's age to complete this topic Pneumococcal Vaccine: 50+ Years Completed 12/09/2023, 08/04/2010 Hepatitis C Screening Completed 02/17/2024 , 10/05/2022, 09/17/2019 HIB Vaccines Aged Out No longer eligi ble based on patient's age to complete this topic HPV Vaccines Aged Out No longer eligi ble based on patient's age to complete this topic IPV Vaccines Aged Out No longer eligi ble based on patient's age to complete this topic Meningococcal B Vaccine Aged Out No l onger eligible based on patient's age to complete this topic Meningococcal Vaccine Aged Out No kelli yina eligible based on patient's age to complete this topic RSV under 20 months Aged Out No longe r eligible based on patient's age to complete this topic Rotavirus Vaccines Aged Out No longer eligible based on patient's age to complete this topic Procedures Procedure Name Priority Date/Time Associated Diagnosis Comments ALBUMIN, RANDOM URINE W/CREATININE Routine 03/25/2025 8:50 AM EDT Primary hypertension XR CHEST 2 VIEWS Routine 03/25/2025 8:50 AM EDT SOB (shortness of breath) MAGNESIUM Routine 03/25/2025 8:44 AM EDT Sleep disturbance COMPREHENSIVE METABOLIC PANEL Routine 03/25/2025 8:44 AM EDT Primary hypertension CBC WITH AUTO DIFFERENTIAL Routine 03/25/2025 8:44 AM EDT Sleep disturbance Obstructive sleep apnea syndrome URIC ACID Routine 03/25/2025 8:44 AM EDT Pain of right great toe HEPATITIS PANEL, GENERAL Routine 02/17/2024 10:49 AM EDT HM COLONOSCOPY Routine 12/18/2019 ZZZ HISTORICAL HIV AB/AG Routine 09/17/2019 9:08 AM EST from Last 3 Months or Most Recently Relevant to Health Maintenance Results * Albumin, Random Urine W/Creatinine (03/25/2025 8:50 AM EDT) Creatinine, Urine 302.89 mg/dL [facility] Microalbumin Urine 19.0 mg/L [facility] Microalbum Creatinine Ratio Ur 6.2 <30 ug/mg cr [facility] Comment:Albumin/Creatinine R atio Reference Ranges: Normal: < 30 ug/mg creatinine Microalbuminuria: 30 - 300 ug/mg creatinineClinical Albuminuria: > 300 ug/mg creatinine Urine (Urine, Random) 03/25/2025 8:50 AM EDT 03/25/2025 9:13 AM EDT us Gareth GONG LAB URINE ORDERABLES Final Resul t [facility] [address] [place] [phone] * XR Chest 2 Views (03/25/2025 8:50 AM EDT) Anatomical Region Laterality Modality Chest Radiographic Judy ging 03/25/2025 8:50 AM EDT Narrative 03/25/2025 9:07 AM EDT [address] [address] XRay Report Signed Patient: Ministerio Hernandez MR#: [id number] : 1965 Acct:[id number] Age/Sex: 59 / M ADM Date: 03/25/25 Loc: HO.LAB Attending Dr: Gareth Mo NP Ordering Physician: GARETH MO NP Date of Service: 03/25/25 Procedure(s): XR chest 2V Accession Number(s): [id number] cc: GARETH MO NP EXAMINATION: XR CHEST CLINICAL INFORMATION: increased SOB COMPARISON: Chest 05/30/2021 TECHNIQUE: 2 views of the chest were obtained. FINDINGS: No significant abnormality is noted involving the heart, lungs, mediastinum, bony thorax or soft tissues. XR/XR chest 2V IMPRESSION: Unremarkable chest examination. Electronically signed by: Richard Russo MD 03/25/2025 09:03 AM EDT Dictated By: Richard Russo MD Signed By: <Electronically signed by Richard Russo MD in OV> 03/25/25 0903 DD/ 0850 TD/TT: 03/25/25 0855 Financial Services Officer: [facility] Procedure Note Donotuseinterpreter, Image - 03/25/[address] [address] XRay Report Signed Patient: Ministerio Hernandez AMR#: [id number] : 1965Acct:[id number] Age/Sex: 59 / MADM Date: 03/25/25 Loc: HO.LAB Attending Dr: Gareth Mo NP Ordering Physician: GARETH MO NP Date of Service: 03/25/25 Procedure(s): XR chest 2V Accession Number(s): [id number] cc: GARETH MO NP EXAMINATION: XR CHEST CLINICAL INFORMATION: increased SOB COMPARISON: Chest 05/30/2021 TECHNIQUE: 2 views of the chest were obtained. FINDINGS: No significant abnormality is noted involving the heart, lungs, mediastinum, bony thorax or soft tissues. XR/XR chest 2V IMPRESSION: Unremarkable chest examination. Electronically signed by: Richard Russo MD 03/25/2025 09:03 AM EDT RP Dictated By: Richard Russo MD Signed By: <Electronically signed by Richard Russo MD in OV> 03/25/25 0903 DD/ 0850 TD/TT: 03/25/25 0855 Financial Services Officer: CARIN us Gareth Mo ANP IMG XR PROCEDURES Edited Result - Final * (ABNORMAL) CBC auto differential (03/25/2025 8:44 AM EDT) White Blood Count 7.2 4.8 - 10.8 X10*3/uL [facility] Red Blood Count 4.58(L) 4.60 - 5.80 X10*6/uL [facility] Hemoglobin 14.8 14.0 - 18.0 g/dl [facility] Hematocrit 44.2 42.0 - 52.0 % [facility] Mean Corpuscular Volume 96.5 80.0 - 98.0 fL [facility] Mean Corpuscular Hemoglobin 32.3 27.0 - 33.0 pg [facility] Mean Corpuscular HGB Conc 33.5 31.0 - 36.0 g/dl [facility] Red Cell Distribution Width 12.4 11.0 - 16.0 % [facility] Platelet Count 264 160 - 400 X10*3/uL [facility] Mean Platelet Volume 10.2 9.4 - 12.4 fL [facility] Neutrophils Percent Auto 56.9 45 - 73 % [facility] Imm Gran Pct Auto 0.4 0.0 - 0.4 % [facility] Lymphocytes Percent Auto 28.2 20 - 40 % [facility] Monocytes Percent Auto 9.6 2 - 11 % [facility] Eosinophils Percent Auto 3.9 0 - 4 % [facility] Basophils Percent Auto 1.0 0 - 2 % [facility] NRBC Pct Auto 0.0 0.0 - 0.2 /100WBC [facility] Neutrophils Absolute Auto 4.1 2.0 - 8.3 x10*3/uL [facility] Imm Gran Abs Auto 0.03 0.00 - 0.03 X10*3/uL [facility] Lymphocytes Absolute Auto 2.0 1.2 - 4.9 X10*3/uL [facility] Monocytes Absolute Auto 0.7 0.1 - 1.2 X10*3/uL [facility] Eosinophils Absolute Auto 0.3 0.0 - 0.4 X10*3/uL [facility] Basophils Absolute Auto 0.1 0.0 - 0.2 X10*3/uL [facility] NRBC Abs Auto 0.000 0.0 - 0.012 X10*3/uL [facility] Blood Venous blood specimen / Unknown 03/25/2025 8:44 AM EDT 03/25/2025 8:44 AM EDT Gareth [facility] BLOOD ORDERABLES Final Resul t Performing Organization Address City/[facility]/ZIP Co de Phone Number [facility] [address] [place] [phone] * Uric acid (03/25/2025 8:44 AM EDT) Uric Acid 4.5 3.4 - 7.0 mg/dL [facility] Blood Venous blood specimen / Unknown 03/25/2025 8:44 AM EDT 03/25/2025 8:44 AM EDT Gareth [facility] BLOOD ORDERABLES Final Resul t Performing Organization Address City/[facility]/ZIP Co de Phone Number [facility] [address] [place] [phone] * Magnesium (03/25/2025 8:44 AM EDT) Magnesium 2.2 1.6 - 2.6 mg/dL [facility] Blood Venous blood specimen / Unknown 03/25/2025 8:44 AM EDT 03/25/2025 8:44 AM EDT Gareth Mo [facility] BLOOD ORDERABLES Final Resul t [facility] [address] [place] [phone] * (ABNORMAL) Comprehensive Metabolic Panel (03/25/2025 8:44 AM EDT) Sodium 140 135 - 145 mmol/L [facility] Potassium 3.9 3.3 - 5.1 mmol/L [facility] Chloride 108 96 - 108 mmol/L [facility] Carbon Dioxide 25 22 - 29 mmol/L [facility] Anion Gap 11(L) 12 - 20 [facility] Urea Nitrogen (BUN) 21(H) 9 - 16 mg/dL [facility] Creatinine, Serum 1.00 0.5 - 1.4 mg/dL [facility] Estimated Glomerular Filt Rate >60 [facility] Comment:Chronic Kidney Disea se: Estimated GFR < 60 mL/min/[id number] Kidney Disease: Estimated GFR < 15 mL/min/1.73m2 Glucose 104 60 - 115 mg/dL [facility] Calcium 9.4 8.4 - 10.2 mg/dL [facility] Bilirubin, Total 0.4 0.0 - 1.0 mg/dL [facility] Aspartate Amino Transferase 33 5 - 37 U/L [facility] Alanine Aminotransferase 60(H) 0 - 40 U/L [facility] Total Protein 7.1 6.5 - 8.0 g/dL [facility] Albumin Level 4.3 3.5 - 5.0 g/dL [facility] Alkaline Phosphatase 80 39 - 117 U/L [facility] Blood Venous blood specimen / Unknown 03/25/2025 8:44 AM EDT 03/25/2025 8:44 AM EDT [facility] LAB BLOOD ORDERABLES Final Resul t Performing Organization Address City/[facility]/ZIP Co de Phone Number [facility] [address] [place] [phone] * Hepatitis Panel, General (02/17/2024 10:49 AM EDT) Pathologist [facility] Hepatitis A IgM Nonreactive Nonreactive [facility] Comment:IgM antibodies to GREER V not detected; does not exclude earlyacute or recovered HAV infection. ~Hepatitis B Surface Antibody NONREACTIVE Nonreactive [facility] Comment:Nonreactive: < 8.00 mIU/mL Hepatitis B Core Antibody Nonreactive Nonreactive [facility] Hepatitis C Antibody Nonreactive Nonreactive [facility] Comment:Antibodies to HCV no t detected; does not exclude early acuteHCV infection. Hepatitis B Surface Ag Negative Negative [facility] 02/17/2024 10:4 9 AM EDT 02/17/2024 10:49 AM EDT [facility] External Data Provider LAB BLOOD ORDERAB LES Final Result Performing Organization Address City/[facility]/ZIP Co de Phone Number [facility] [address] [place] [phone] * Colonoscopy (12/18/2019) [facility] Colonoscopy Normal Normal 12/18/2019 Historical Provider HEALTH MAINTENANCE Final Result * HIV AB/AG (09/17/2019 9:08 AM EST) HIV AG/AB NONREACTIVE [facility] Comment: HIV-1 p24 Ag and/or HIV-1/HIV-2 Ab not detected. A test result that is nonreactive does not exclude the possibility of exposure to or infection with HIV-1 and/or HIV-2. Nonreactive results in this assay for individuals with prior exposure to HIV-1 and/or HIV-2 may be due to antigen and antibody levels that are below the limit of detection of this assay. The [employer] HIV Ag/Ab Combo assay result and supplemental assay results should be interpreted in conjunction with the patient's clinical presentation, history and other laboratory results. If the results are inconsistent with clinical evidence, additional testing is suggested to confirm the result. 09/17/2019 9:08 AM EST us Sasha Suarez NP HISTORICAL/NON ORDERABLE LABS Fi nal Result [facility] from Last 3 Months or Most Recently Relevant to Health Maintenance Insurance [employer] Account Executive Relationship Specialty Start Date End Date Gareth Mo ANP [address] [place] [phone] PCP - General Family Medicine 06/03/21 Cecilia Hunter Mason [employer] 07/26/24
== END 2025-05-16 10:02 | disposition home or self-care (01) ==
LOC: HO.HGS 09:31
PROVIDERS: PCP Nurse Practitioner Primary Care; Visit Provider Surgery
DX: K21.9 Gastro-esophageal reflux disease without esophagitis (principal); R14.0 Abdominal distension (gaseous)
CPT/HCPCS: 99213

== ENCOUNTER → 2025-05-16 09:31 | Outpatient (BNVA) | payer MEDICAID, SELFPAY | PROVIDERS: PCP Nurse Practitioner Primary Care; Visit Provider Surgery | DX: K21.9 Gastro-esophageal reflux disease without esophagitis (principal); R14.0 Abdominal distension (gaseous) | CPT/HCPCS: 99212 ==

== ENCOUNTER 2025-06-04 06:37 | Outpatient (REF) | payer MEDICAID, SELFPAY ==
--- NOTE | ~2025-06-04 | CT_ITS ---
EXAMINATION: CT LUNG SCREENING HISTORY: F17.210 - Nicotine dependence, cigarettes, uncomplicated TECHNIQUE: Low dose axial images were obtained from the sternal notch to upper abdomen without IV contrast per standard departmental protocol. Sagittal and coronal reformatted images were also obtained and reviewed. One or more of the following techniques was used for dose reduction: Automated exposure control, adjustment of the mA and/or kV according to patient size, use of iterative reconstruction technique. DLP: 54 mGy-cm COMPARISON: Comparison is made with the prior examination dated 02/09/2024. FINDINGS: Lung nodules: Again seen is a 3 mm calcified granuloma in the right upper lobe (series 4, image 50), and a 3 mm nodule in the left lower lobe (series 4, image 71). The previously described calcified nodule in the left lower lobe does not appear to be within the lung parenchyma on the current study. Emphysema: mild Coronary Calcification: none Aortic Arch Calcification: none Potentially Significant Incidentals : see visualized upper abdomen Additional Chest Findings: There is no pleural or pericardial effusion. No mediastinal or axillary lymphadenopathy is identified. There is mild prominence of the ascending thoracic aorta measuring up to 3.5 cm in diameter. Visualized upper abdomen: The liver appears enlarged. The visualized portions of the spleen and adrenals have an unremarkable unenhanced appearance. CT/CT lung screening IMPRESSION: No suspicious pulmonary nodules are identified. LUNG-RADS ASSESSMENT: Lung-RADS 2: Benign MANAGEMENT: Continue annual screening with LDCT in 12 months Category S: S Electronically signed by: Haja Duncan MD 06/04/2025 07:38 AM EDT
--- OUTSIDE RECORDS SUMMARY | 2025-06-04 06:42 | XMS_ITS | Clinical Summary ---
Author Organization [employer] Address [address] [facility] 7t [place] [address] Care Team Providers Care Toll Test Worker Name Role Phone Gareth Mo Primary Care Provider [phone] Allergies Active Allergy Reactions Criticality Noted Date Comments Shellfish-Derived Products Anaphylaxis High 09/28/20 21 Medications * This document contains information received from the source organization and may not represent a complete record from that organization. acetaminophen (Tylenol) 500 MG tablet 1 Active cholecalciferol (Vitamin D-3) 1.25 MG (78131 UT) capsule 9 Active EPINEPHrine (Epipen) 0.3 MG/0.3ML injection syringe Inject 0.3 mg into the muscle. 1 Active levETIRAcetam (Keppra) 1000 MG tablet Take 1 tablet by mouth every 12 (twelve) hours. 1 Active albuterol 0.63 MG/3ML nebulizer solutionIndicatio ns:Moderate persistent asthma without complication use as needed for SOB/wheezing, up to every 4-6 hours 75 mL 2 3 Active folic acid (Folvite) 1 MG tablet Take by mouth Once per day. Active nicotine (Nicoderm, Step 2) 14 MG/24HR patchIndications: Nicotine Dependence Place 1 patch on the skin 1 (one) time each day at the same time. 14 patch 3 Active nicotine (Nicoderm, Step 3) 7 MG/24HR patchIndications: Nicotine Dependence,use nicotine patch daily x 14 days and then start 7 mg daily for [address] 1 patch on the skin 1 (one) time each day at the same time. 28 patch 3 Active Diclofenac Sodium (Voltaren) 1 % gel Use topical BID 100 g 3 4 Active budesonide-formot cintia (Symbicort) 160-4.5 MCG/ACT inhalerIndication s:Moderate persistent asthma without complication Inhale 2 puffs in the morning and at bedtime. Rinse mouth with water after use to reduce aftertaste and incidence of candidiasis. Do not swallow. 1 each 11 4 06/25/20 25 Active cyclobenzaprine (Flexeril) 10 MG tabletIndications :Other chronic back pain Take 1 tab at bedtime as needed for back pain 30 tablet 1 4 Active Blood Pressure kitIndications:El evated blood pressure reading without diagnosis of hypertension 1 kit Once per day. 1 kit 4 Active albuterol 108 (90 Base) MCG/ACT inhalerIndication s:Cough, unspecified type inhale 2 puffs by Inhalation route 4 times every day as needed 18 g 2 5 Active amLODIPine (Norvasc) 10 MG tablet Take 1 tablet (10 mg) by mouth Once per day. 30 tablet 11 5 11/14/19 26 Active Umeclidinium [place] (Incruse Ellipta) 62.5 MCG/ACT aerosol powderIndications :Moderate persistent asthma without complication Inhale 1 Act (62.5 mcg) Once per day. 30 each 2 5 Active pantoprazole (ProtoNix) 20 MG EC tabletIndications :Gastroesophageal reflux disease with esophagitis without hemorrhage,Anxiet y Take 1 tablet (20 mg) by mouth before breakfast. 90 tablet 2 5 Active hydroCHLOROthiazi de 12.5 MG tabletIndications :Primary hypertension Take 1 tablet (12.5 mg) by mouth Once per day. 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 Date Type Department Care Team Description 05/21/2025 11:00 AM EDT Clinical Support [address] [address] Rosmery Alvarado, GRANT Primary hypertension 05/21/2025 Travel 05/02/2025 11:15 AM EDT Office Visit [address] [address] Gareth Mo ANP Primary hypertension (Primary Dx); Dyslipidemia; Obstructive sleep apnea syndrome; Moderate persistent asthma without complication 05/02/2025 Travel 05/01/[address] [address] Gareth Mo ANP chart prep 04/15/2025 3:30 PM EDT Clinical Support [address] [address] Rosmery Alvarado RN Primary hypertension 04/15/2025 Travel 03/25/2025 Results Follow-Up [address] [address] Gareth Mo ANP CBC auto differential, Comprehensive Metabolic Panel, Albumin, Random Urine W/Creatinine, Magnesium 03/13/2025 3:30 PM EDT Office Visit [address] [address] Gareth Mo ANP Sleep disturbance (Primary Dx); Obstructive sleep apnea syndrome; Primary hypertension; Ventral hernia without obstruction or gangrene; Moderate persistent asthma without complication; SOB (shortness of breath); Gastroesophageal reflux disease with esophagitis without hemorrhage; Anxiety; Screening for malignant neoplasm of colon 03/13/2025 Travel 03/12/[address] [address] Gareth Mo ANP Chart Prep 03/11/[address] [address] Gareth Mo ANP Nurse Triage from Last [...] Sign Reading Time Taken Comments Blood Pressure 140/102 05/21/2025 11:11 AM EDT Pulse 82 05/21/2025 11:00 AM EDT Temperature 36.3 C (97.4 F) 11/14/2024 12:15 PM EST Respiratory Rate 16 05/21/2025 11:00 AM EDT Oxygen Saturation 98% 05/21/2025 11:00 AM EDT room air Inhaled Oxygen Concentration - - Weight 86.6 kg (191 lb) 05/02/2025 11:26 AM EDT Height 170.2 cm (5' 7 ) 05/02/2025 11:26 AM EDT Body Mass Index 29.91 05/02/2025 11:26 AM EDT Plan of Treatment Upcoming Encounters Date Type Department Care Team (Late st Contact Info) Description 06/04/2025 2:00 PM EDT Office Visit [facility] [address] [place] [address] Gareth Mo, ANP [address] [place] [address] 08/22/2025 10:30 AM EST Office Visit [facility]OM[facility] [address] [place] [address] Andreia Michael, OD [address] [place] [address] Health Maintenance Due Date Last Done Comments [...] 8:50 AM EDT) Creatinine, Urine 302.89 mg/dL [facility] Microalbumin Urine 19.0 mg/L [facility] Microalbum Creatinine Ratio Ur 6.2 <30 ug/mg cr [facility] Comment:Albumin/Creatinine R atio Reference Ranges: Normal: < 30 ug/mg creatinine Microalbuminuria: 30 - 300 ug/mg creatinineClinical Albuminuria: > 300 ug/mg creatinine Urine (Urine, Random) 03/25/2025 8:50 AM EDT 03/25/2025 9:13 AM EDT us Gareth GONG LAB URINE ORDERABLES Final Resul t [facility] [address] [place] [phone] * XR Chest 2 Views (03/25/2025 8:50 AM EDT) Anatomical Region Laterality Modality Chest Radiographic Judy ging 03/25/2025 8:50 AM EDT Narrative 03/25/2025 9:07 AM EDT [address] [address] XRay Report Signed Patient: Ministerio Hernandez MR#: [id number] : 1965 Acct:[id number] Age/Sex: 59 / M ADM Date: 03/25/25 Loc: HO.LAB Attending Dr: Gareth Mo NP Ordering Physician: GARETH MO NP Date of Service: 03/25/25 Procedure(s): XR chest 2V Accession Number(s): [id number] cc: GARETH MO NP EXAMINATION: XR CHEST [...] 03/25/25 0903 DD/ 0850 TD/TT: 03/25/25 0855 Blocking Machine Operator: [facility] Procedure Note Donotuseinterpreter, Image - 03/25/[address] [address] XRay Report Signed Patient: Ministerio Hernandez [facility]#: [id number] : 1965Acct:[id number] Age/Sex: 59 / MADM Date: 03/25/25 Loc: HO.LAB Attending Dr: Gareth Mo NP Ordering Physician: GARETH MO NP Date of Service: 03/25/25 Procedure(s): XR chest 2V Accession Number(s): [id number] cc: GARETH MO NP EXAMINATION: XR CHEST [...] 03/25/25 0903 DD/ 0850 TD/TT: 03/25/25 0855 Blocking Machine Operator: CARIN Gareth Mo [facility] IM XR PROCEDURES Edited Result - Final * (ABNORMAL) CBC auto differential (03/25/2025 8:44 AM EDT) White Blood Count 7.2 4.8 - 10.8 X10*3/uL [facility] Red Blood Count 4.58(L) 4.60 - 5.80 X10*6/uL [facility] Hemoglobin 14.8 14.0 - 18.0 g/dl [facility] Hematocrit 44.2 42.0 - 52.0 % [facility] Mean Corpuscular Volume 96.5 80.0 - 98.0 fL [facility] Mean Corpuscular Hemoglobin 32.3 27.0 - 33.0 pg [facility] Mean Corpuscular HGB Conc 33.5 31.0 - 36.0 g/dl [facility] Red Cell Distribution Width 12.4 11.0 - 16.0 % [facility] Platelet Count 264 160 - 400 X10*3/uL [facility] Mean Platelet Volume 10.2 9.4 - 12.4 fL [facility] Neutrophils Percent Auto 56.9 45 - 73 % [facility] Imm Gran Pct Auto 0.4 0.0 - 0.4 % [facility] Lymphocytes Percent Auto 28.2 20 - 40 % [facility] Monocytes Percent Auto 9.6 2 - 11 % [facility] Eosinophils Percent Auto 3.9 0 - 4 % [facility] Basophils Percent Auto 1.0 0 - 2 % [facility] NRBC Pct Auto 0.0 0.0 - 0.2 /100WBC [facility] Neutrophils Absolute Auto 4.1 2.0 - 8.3 x10*3/uL [facility] Imm Gran Abs Auto 0.03 0.00 - 0.03 X10*3/uL [facility] Lymphocytes Absolute Auto 2.0 1.2 - 4.9 X10*3/uL [facility] Monocytes Absolute Auto 0.7 0.1 - 1.2 X10*3/uL [facility] Eosinophils Absolute Auto 0.3 0.0 - 0.4 X10*3/uL [facility] Basophils Absolute Auto 0.1 0.0 - 0.2 X10*3/uL [facility] NRBC Abs Auto 0.000 0.0 - 0.012 X10*3/uL [facility] Blood Venous blood specimen / Unknown 03/25/2025 8:44 AM EDT 03/25/2025 8:44 AM EDT us Gareth Mo ANP LAB BLOOD ORDERABLES Final Resul t Performing Organization Address [facility] de Phone Number [facility] [address] [place] [phone] * Uric acid (03/25/2025 8:44 AM EDT) Uric Acid 4.5 3.4 - 7.0 mg/dL [facility] Blood Venous blood specimen / Unknown 03/25/2025 8:44 AM EDT 03/25/2025 8:44 AM EDT us Gareth Mo ANP LAB BLOOD ORDERABLES Final Resul t Performing Organization Address [facility] de Phone Number [facility] [address] [place] [phone] * Magnesium (03/25/2025 8:44 AM EDT) Magnesium 2.2 1.6 - 2.6 mg/dL [facility] Blood Venous blood specimen / Unknown 03/25/2025 8:44 AM EDT 03/25/2025 8:44 AM EDT us Gareth oM ANP LAB BLOOD ORDERABLES Final Resul t Performing Organization Address City/[facility] de Phone Number [facility] [address] [place] [phone] * (ABNORMAL) Comprehensive Metabolic Panel (03/25/2025 8:44 AM EDT) Sodium 140 135 - 145 mmol/L [facility] Potassium 3.9 3.3 - 5.1 mmol/L [facility] Chloride 108 96 - 108 mmol/L [facility] Carbon Dioxide 25 22 - 29 mmol/L [facility] Anion Gap 11(L) 12 - 20 [facility] Urea Nitrogen (BUN) 21(H) 9 - 16 mg/dL [facility] Creatinine, Serum 1.00 0.5 - 1.4 mg/dL [facility] Estimated Glomerular Filt Rate >60 [facility] Comment:Chronic Kidney Disea se: Estimated GFR < 60 mL/min/1.98h0Elffps Kidney Disease: Estimated GFR < 15 mL/min/1.73m2 Glucose 104 60 - 115 mg/dL [facility] Calcium 9.4 8.4 - 10.2 mg/dL [facility] Bilirubin, Total 0.4 0.0 - 1.0 mg/dL [facility] Aspartate Amino Transferase 33 5 - 37 U/L [facility] Alanine Aminotransferase 60(H) 0 - 40 U/L [facility] Total Protein 7.1 6.5 - 8.0 g/dL [facility] Albumin Level 4.3 3.5 - 5.0 g/dL [facility] Alkaline Phosphatase 80 39 - 117 U/L [facility] Blood Venous blood specimen / Unknown 03/25/2025 8:44 AM EDT 03/25/2025 8:44 AM EDT Gareth Mo [facility] BLOOD ORDERABLES Final Resul t [facility] [address] [place] [phone] * Hepatitis Panel, General (02/17/2024 10:49 AM EDT) Pathologist [facility] Hepatitis A IgM Nonreactive Nonreactive [facility] Comment:IgM antibodies to GREER V not detected; does not exclude earlyacute or recovered HAV infection. ~Hepatitis B Surface Antibody NONREACTIVE Nonreactive [facility] Comment:Nonreactive: < 8.00 mIU/mL Hepatitis B Core Antibody Nonreactive Nonreactive [facility] Hepatitis C Antibody Nonreactive Nonreactive [facility] Comment:Antibodies to HCV no t detected; does not exclude early acuteHCV infection. Hepatitis B Surface Ag Negative Negative [facility] 02/17/2024 10:4 9 AM EDT 02/17/2024 10:49 AM EDT Generic External Data Provider LAB BLOOD ORDERAB LES Final Result [facility] [address] [place] [phone] * Hm Colonoscopy (12/18/2019) [facility] Colonoscopy Normal Normal 12/18/2019 Historical Provider HEALTH MAINTENANCE Final Result * HIV AB/AG (09/17/2019 9:08 AM EST) [facility] HIV AG/AB NONREACTIVE NR FOUNDATI ON LAB [...] of detection of this assay. The [employer] HIV Ag/Ab Combo assay result and supplemental assay results should be interpreted in conjunction with the patient's clinical presentation, history and other laboratory results. If the results are inconsistent with clinical evidence, additional testing is suggested to confirm the result. 09/17/2019 9:08 AM EST us Sasha Suarez NP HISTORICAL/NON ORDERABLE LABS Fi nal Result [facility] [address] from Last 3 Months or Most Recently Relevant to Health Maintenance Insurance [facility] C3 Care Teams Toll Test Worker Relationship Specialty Start Date End Date Gareth Mo ANP [address] [place] [phone] PCP - General Family Medicine 06/03/21 Cecilia Hunter Dehydrogenation Operator HeadOrganizational Development Director 07/26/24
== END 2025-06-04 06:38 | disposition home or self-care (01) ==
LOC: HO.CT 06:37
PROVIDERS: PCP Nurse Practitioner Primary Care; Visit Provider Physician Assistant Medical
DX: Z12.2 Encounter for screening for malignant neoplasm of respiratory organs (principal); F17.210 Nicotine dependence, cigarettes, uncomplicated
CPT/HCPCS: 71271

== ENCOUNTER → 2025-06-04 06:43 | Outpatient (BNV) | payer MEDICAID, SELFPAY | PROVIDERS: PCP Nurse Practitioner Primary Care; Visit Provider Radiology Diagnostic Radiology | DX: Z12.2 Encounter for screening for malignant neoplasm of respiratory organs (principal); F17.210 Nicotine dependence, cigarettes, uncomplicated | CPT/HCPCS: 71271 ==

== ENCOUNTER 2025-06-05 13:53 | Outpatient (REF) | payer MEDICAID, SELFPAY ==
--- NOTE | 2025-06-05 13:57 | PFT_ITS ---
Flows: FEV1: 103 % of predicted at 3.39 L FVC: 114 % of predicted at 4.82 L FEV1/FVC: 70 % Bronchodilator response: Present Volumes: Total lung capacity: 92 % of predicted at 6.00 L Residual volume: 93 % of predicted at 1.83 L Slow vital capacity: 90 % of predicted at 4.17 L Expiratory reserve volume: 86 % of predicted at 1.00 L Diffusion capacity: Normal Impression: Borderline obstructive ventilatory defect with positive bronchodilator response. MTDD
[2025-06-05 14:32] VITALS: PULSE 76
--- OUTSIDE RECORDS SUMMARY | 2025-06-05 14:47 | XMS_ITS | Encounter Summary ---
Author Organization [employer] Address [address] [facility] 7[address] [place] [address] Care Team Providers Care Wiring Mechanic Name Role Phone Gareth Mo Primary Care Provider [phone] Encounter Details Date Type Department Care Team ([facility] Contact Info) Description 06/04/2025 Orders Only [facility] External Provider, [facility] Social History Tobacco Use Types Packs/Day Years [...] Care Team (Late st Contact Info) Description 08/22/2025 10:30 AM EST Office Visit [facility] [address] [place] [address] TarAndreia duran, OD [address] [place] [address] documented as of this encounter Procedures Procedure Name Priority Date/Time Associated Diagnosis Comments LDCT LUNG SCREENING Routine 06/04/2025 7 :09 AM EDT documented in this encounter Results * CT Lung Screening Low dose (06/04/2025 7:09 AM EDT) Anatomical Region Laterality Modality Lung Computed Tomogra phy 06/04/2025 7:09 AM EDT Narrative 06/04/2025 7:41 AM EDT [address] [address] [address] Scan Report Signed Patient: Ministerio Hernandez MR#: [id number] : 1965 Acct:[id number] Age/Sex: 59 / M ADM Date: 06/04/25 Loc: HO.CT Attending Dr: Lizet Malone PA-C Ordering Physician: Lizet Malone PA-C Date of Service: 06/04/25 Procedure(s): CT lung screening Accession Number(s): [id number] cc: Lizet Malone PA-C; GARETH MO NP Report Number: [id number]: Total DLP = 54.00 mGy-cm EXAMINATION: CT LUNG SCREENING HISTORY: F17.210 - Nicotine dependence, cigarettes, uncomplicated TECHNIQUE: Low dose axial images were obtained from the sternal notch to upper abdomen without IV contrast per standard departmental protocol. Sagittal and coronal reformatted images were also obtained and reviewed. One or more of the following techniques was used for dose reduction: Automated exposure control, adjustment of the mA and/or kV according to patient size, use of iterative reconstruction technique. DLP: 54 mGy-cm COMPARISON: Comparison is made with the prior examination dated 02/09/2024. FINDINGS: Lung nodules: Again seen is a 3 mm calcified granuloma in the right upper lobe (series 4, image 50), and a 3 mm nodule in the left lower lobe (series 4, image 71). The previously described calcified nodule in the left lower lobe does not appear to be within the lung parenchyma on the current study. Emphysema: mild Coronary Calcification: none Aortic Arch Calcification: none Potentially Significant Incidentals : see visualized upper abdomen Additional Chest Findings: There is no pleural or pericardial effusion. No mediastinal or axillary lymphadenopathy is identified. There is mild prominence of the ascending thoracic aorta measuring up to 3.5 cm in diameter. Visualized upper abdomen: The liver appears enlarged. The visualized portions of the spleen and adrenals have an unremarkable unenhanced appearance. CT/CT lung screening IMPRESSION: No suspicious pulmonary nodules are identified. LUNG-RADS ASSESSMENT: Lung-RADS 2: Benign MANAGEMENT: Continue annual screening with LDCT in 12 months Category S: S Electronically signed by: Haja Duncan MD 06/04/2025 07:38 AM EDT Dictated By: Haja Duncan MD Signed By: <Electronically signed by Haja Duncan MD in OV> 06/04/25 0738 DD/ 8 TD/TT: 06/04/25724 Certified Orthoptist: Procedure Note Donotuseinterpreter, Image - 06/04/[address] [address] [address] Scan Report Signed Patient: Ministerio Hernandez [facility]#: [id number] : 1965Acct:[id number] Age/Sex: 59 / MADM Date: 06/04/25 Loc: HO.CT Attending Dr: Lizet Malone PA-C Ordering Physician: Lizet Malone PA-C Date of Service: 06/04/25 Procedure(s): CT lung screening Accession Number(s): [id number] cc: Lizet Malone PA-C; GARETH MO NP Report Number: [id number]: Total DLP = 54.00 mGy-cm EXAMINATION: CT LUNG SCREENING HISTORY: F17.210 - Nicotine dependence, cigarettes, uncomplicated TECHNIQUE: Low dose axial images were obtained from the sternal notch to upper abdomen without IV contrast per standard departmental protocol. Sagittal and coronal reformatted images were also obtained and reviewed. One or more of the following techniques was used for dose reduction: Automated exposure control, adjustment of the mA and/or kV according to patient size, use of iterative reconstruction technique. DLP: 54 mGy-cm COMPARISON: Comparison is made with the prior examination dated 02/09/2024. FINDINGS: Lung nodules: Again seen is a 3 mm calcified granuloma in the right upper lobe (series 4, image 50), and a 3 mm nodule in the left lower lobe (series 4, image 71). The previously described calcified nodule in the left lower lobe does not appear to be within the lung parenchyma on the current study. Emphysema: mild Coronary Calcification: none Aortic Arch Calcification: none Potentially Significant Incidentals : see visualized upper abdomen Additional Chest Findings: There is no pleural or pericardial effusion. No mediastinal or axillary lymphadenopathy is identified. There is mild prominence of the ascending thoracic aorta measuring up to 3.5 cm in diameter. Visualized upper abdomen: The liver appears enlarged. The visualized portions of the spleen and adrenals have an unremarkable unenhanced appearance. CT/CT lung screening IMPRESSION: No suspicious pulmonary nodules are identified. LUNG-RADS ASSESSMENT: Lung-RADS 2: Benign MANAGEMENT: Continue annual screening with LDCT in 12 months Category S: S Electronically signed by: Haja Duncan MD 06/04/2025 07:38 AM EDT Dictated By: Haja Duncan MD Signed By: <Electronically signed by Haja Duncan MD in OV> 06/04/25 0738 DD/ 0709 TD/TT: 06/04/2525 Certified Orthoptist: [facility] External Provider IMG CT PROCEDURES Final Result documented in this encounter Visit Diagnoses Not on filedocumented in this encounter Additional Health Concerns Assessment Noted Time PHQ-9 Depression Total Score: 15 025 8:48 AM EDT documented as of this encounter Care Teams Wiring Mechanic Relationship Specialty Start Date End Date Gareth Mo ANP [address] [place] [address] PCP - General Family Medicine 06/03/21 Cecilia Hunter Motor MechanicSenior Sales Manager 07/26/24 documented as of this encounter
--- OUTSIDE RECORDS SUMMARY | 2025-06-05 14:47 | XMS_ITS | Clinical Summary ---
Author Organization [employer] Address [address] [facility] 7t [place] [address] Care Team Providers Care Padder Name Role Phone Gareth Mo Primary Care Provider [phone] Allergies Active Allergy Reactions Criticality Noted Date Comments Shellfish-Derived Products Anaphylaxis High 09/28/20 21 Medications * This document contains information received from the source organization and may not represent a complete record from that organization. acetaminophen (Tylenol) 500 MG tablet 1 Active cholecalciferol (Vitamin D-3) 1.25 MG (92749 UT) capsule 9 Active EPINEPHrine (Epipen) 0.3 [...] tablet 11 5 11/14/19 26 Active Umeclidinium Kremlin (Incruse Ellipta) 62.5 MCG/ACT aerosol powderIndications :Moderate [...] Plan (02/24/2023 6:50 PM EDT): Following w geodetic surveyor technologist Off meds -not taking methotrexate x last [...] organization. Date Type Department Care Team Description 06/04/2025 Orders Only [facility] External Provider, [facility] 05/21/2025 11:00 AM EDT Clinical Support [address] [address] Rosmery Alvarado, GRANT Primary hypertension 05/21/2025 Travel 05/02/2025 11:15 AM EDT Office Visit [address] [address] Gareth Mo ANP Primary hypertension (Primary Dx); Dyslipidemia; Obstructive sleep apnea syndrome; Moderate persistent asthma without complication 05/02/2025 Travel 05/01/[address] [address] Gareth Mo ANP chart prep 04/15/2025 3:30 PM EDT Clinical Support [address] [address] Rosmery Alvarado RN Primary hypertension 04/15/2025 Travel 03/25/2025 Results Follow-Up [address] [address] Gareth Mo ANP CBC auto differential, Comprehensive Metabolic Panel, Albumin, Random Urine W/Creatinine, Magnesium 03/13/2025 3:30 PM EDT Office Visit [address] [address] Gareth Mo ANP Sleep disturbance (Primary Dx); Obstructive sleep apnea syndrome; Primary hypertension; Ventral hernia without obstruction or gangrene; Moderate persistent asthma without complication; SOB (shortness of breath); Gastroesophageal reflux disease with esophagitis without hemorrhage; Anxiety; Screening for malignant neoplasm of colon 03/13/2025 Travel 03/12/[address] [address] Gareth Mo ANP Chart Prep 03/11/[address] [address] Gareth Mo ANP Nurse Triage from Last 3 Months Immunizations Immunization Administration Dates Next Due Hep A, Adult 11/14/2019 Hep B, adult 12/20/2019,11/14/2019 Influenza injectable quadriv alent preservative free 11/11/2022,08/10/2021,08/26/2020,09/14 Influenza, IIV3, injectable 08/04/2010 Influenza, seasonal, injecta ble, preservative free 06/25/2024 Janie SARS-CoV-2 Vaccination 01/14/2021 Pfizer Covid-19 Vaccine + 10/05/2021 Pfizer Covid-19 Vaccine 12+ Bivalent 11/11/2022 [...] Description 08/22/2025 10:30 AM EST Office Visit [facility] [address] [place], [place] [phone] Andreia Michael, OD [address] [place] [address] Health Maintenance Due Date Last Done Comments [...] SCREENING Routine 06/04/2025 7 :09 AM EDT ALBUMIN, RANDOM URINE W/CREATININE Routine 03/25/2025 8:50 [...] Recently Relevant to Health Maintenance Results * CT Lung Screening Low dose (06/04/2025 7:09 AM EDT) Anatomical Region Laterality Modality Lung Computed Tomogra phy 06/04/2025 7:09 AM EDT Narrative 06/04/2025 7:41 AM EDT [place] [address] CT Scan Report Signed Patient: Ministerio Hernandez MR#: [id number] : 1965 Acct:[id number] Age/Sex: 59 / M ADM Date: 06/04/25 Loc: HO.CT Attending Dr: Lizet Malone PA-C Ordering Physician: Lizet Malone PA-C Date of Service: 06/04/25 Procedure(s): CT lung screening Accession Number(s): [id number] cc: Lizet Malone PA-C; GARETH MO NP Report Number: [id number]: Total DLP = 54.00 mGy-cm EXAMINATION: CT [...] Haja Duncan MD 06/04/2025 07:38 AM EDT RP Dictated By: Haja Duncan MD Signed By: <Electronically signed by Haja Duncan MD in OV> 06/04/2538 DD/ 8 TD/TT: 06/04/25724 Lay Ups Assembler: Procedure Note Donotuseinterpreter, Image - 06/04/[address] [place] [address] [address] Scan Report Signed Patient: Ministerio Hernandez [facility]#: [id number] : 1965Acct:[id number] Age/Sex: 59 / MADM Date: 06/04/25 Loc: HO.CT Attending Dr: Lizet Malone PA-C Ordering Physician: Lizet Malone PA-C Date of Service: 06/04/25 Procedure(s): CT lung screening Accession Number(s): [id number] cc: Lizet Mlaone PA-C; GARETH MO NP Report Number: [id number]: Total DLP = 54.00 mGy-cm EXAMINATION: CT [...] in OV> 06/04/25 0738 DD/ 0709 TD/TT: 06/04/25 07 Lay Ups Assembler: [facility] External Provider IM CT PROCEDURES Final Result * Albumin, Random Urine W/Creatinine (03/25/2025 8:50 AM EDT) Creatinine, Urine 302.89 mg/dL [facility] Microalbumin Urine 19.0 mg/L [facility] Microalbum Creatinine Ratio Ur 6.2 <30 ug/mg cr [facility] Comment:Albumin/Creatinine R atio Reference Ranges: Normal: < 30 ug/mg creatinine Microalbuminuria: 30 - 300 ug/mg creatinineClinical Albuminuria: > 300 ug/mg creatinine Urine (Urine, Random) 03/25/2025 8:50 AM EDT 03/25/2025 9:13 AM EDT us Gareth Mo ANP LAB URINE ORDERABLES Final Resul t [facility] [address] [place] [phone] * XR Chest 2 Views (03/25/2025 8:50 AM EDT) Anatomical Region Laterality Modality Chest Radiographic Judy ging 03/25/2025 8:50 AM EDT Narrative 03/25/2025 9:07 AM EDT [address] [address] XRay Report Signed Patient: Ministerio Hernandez MR#: [id number] : 1965 Acct:[id number] Age/Sex: 59 / M ADM Date: 03/25/25 Loc: HO.LAB Attending Dr: Gareth Mo CLINICAL LIAISON Ordering Physician: GARETH MO NP Date of Service: 03/25/25 Procedure(s): XR chest 2V Accession Number(s): [id number] cc: GARETH MO NP EXAMINATION: XR CHEST [...] 03/25/25 0903 DD/ 0850 TD/TT: 03/25/25 0855 Lay Ups Assembler: CARIN Procedure Note Donotuseinterpreter, Image - 03/25/[address] [address] XRay Report Signed Patient: Ministerio Hernandez AMR#: [id number] : 1965Acct:[id number] Age/Sex: 59 / MADM Date: 03/25/25 Loc: HO.LAB Attending Dr: Gareth Mo CLINICAL LIAISON Ordering Physician: GARETH MO NP Date of Service: 03/25/25 Procedure(s): XR chest 2V Accession Number(s): [id number] cc: GARETH MO NP EXAMINATION: XR CHEST [...] in OV> 03/25/25 0903 DD/ 0850 TD/TT: 03/25/25854 Lay Ups Assembler: CARIN Gareth Mo ANP IMG XR PROCEDURES Edited Result - Final * (ABNORMAL) CBC auto differential (03/25/2025 8:44 AM EDT) White Blood Count 7.2 4.8 - 10.8 X10*3/uL [facility] Red Blood Count 4.58(L) 4.60 - 5.80 X10*6/uL [facility] Hemoglobin 14.8 14.0 - 18.0 g/dl [facility] Hematocrit 44.2 42.0 - 52.0 % [facility] Mean Corpuscular Volume 96.5 80.0 - 98.0 fL [facility] Mean Corpuscular Hemoglobin 32.3 27.0 - 33.0 pg [facility] Mean Corpuscular HGB Conc 33.5 31.0 - 36.0 g/dl [facility] Red Cell Distribution Width 12.4 11.0 - 16.0 % [facility] Platelet Count 264 160 - 400 X10*3/uL [facility] Mean Platelet Volume 10.2 9.4 - 12.4 fL [facility] Neutrophils Percent Auto 56.9 45 - 73 % [facility] Imm Gran Pct Auto 0.4 0.0 - 0.4 % [facility] Lymphocytes Percent Auto 28.2 20 - 40 % [facility] Monocytes Percent Auto 9.6 2 - 11 % [facility] Eosinophils Percent Auto 3.9 0 - 4 % [facility] Basophils Percent Auto 1.0 0 - 2 % [facility] NRBC Pct Auto 0.0 0.0 - 0.2 /100WBC [facility] Neutrophils Absolute Auto 4.1 2.0 - 8.3 x10*3/uL [facility] Imm Gran Abs Auto 0.03 0.00 - 0.03 X10*3/uL [facility] Lymphocytes Absolute Auto 2.0 1.2 - 4.9 X10*3/uL [facility] Monocytes Absolute Auto 0.7 0.1 - 1.2 X10*3/uL [facility] Eosinophils Absolute Auto 0.3 0.0 - 0.4 X10*3/uL [facility] Basophils Absolute Auto 0.1 0.0 - 0.2 X10*3/uL [facility] NRBC Abs Auto 0.000 0.0 - 0.012 X10*3/uL [facility] Blood Venous blood specimen / Unknown 03/25/2025 8:44 AM EDT 03/25/2025 8:44 AM EDT Gareth Mo [facility] LAB BLOOD ORDERABLES Final Resul t [facility] [address] [place] [phone] * Uric acid (03/25/2025 8:44 AM EDT) Pathologist [facility] Uric Acid 4.5 3.4 - 7.0 mg/dL [facility] Blood Venous blood specimen / Unknown 03/25/2025 8:44 AM EDT 03/25/2025 8:44 AM EDT [facility] LAB BLOOD ORDERABLES Final Resul t Performing Organization Address [facility]/ZIP Co de Phone Number [facility] [address] [place] [phone] * Magnesium (03/25/2025 8:44 AM EDT) [facility] Magnesium 2.2 1.6 - 2.6 mg/dL [facility] Blood Venous blood specimen / Unknown 03/25/2025 8:44 AM EDT 03/25/2025 8:44 AM EDT Gareth Mo [facility] LAB BLOOD ORDERABLES Final Resul t Performing Organization Address [facility] Co de Phone Number [facility] [address] [place] [phone] * (ABNORMAL) Comprehensive Metabolic Panel (03/25/2025 8:44 AM EDT) [facility] Sodium 140 135 - 145 mmol/L [facility] Potassium 3.9 3.3 - 5.1 mmol/L [facility] Chloride 108 96 - 108 mmol/L [facility] Carbon Dioxide 25 22 - 29 mmol/L [facility] Anion Gap 11(L) 12 - 20 [facility] Urea Nitrogen (BUN) 21(H) 9 - 16 mg/dL [facility] Creatinine, Serum 1.00 0.5 - 1.4 mg/dL [facility] Estimated Glomerular Filt Rate >60 [facility] Comment:Chronic Kidney Disea se: Estimated GFR < 60 mL/min/1.54i6Hquvlp Kidney Disease: Estimated GFR < 15 mL/min/1.73m2 Glucose 104 60 - 115 mg/dL [facility] Calcium 9.4 8.4 - 10.2 mg/dL [facility] Bilirubin, Total 0.4 0.0 - 1.0 mg/dL [facility] Aspartate Amino Transferase 33 5 - 37 U/L [facility] Alanine Aminotransferase 60(H) 0 - 40 U/L [facility] Total Protein 7.1 6.5 - 8.0 g/dL [facility] Albumin Level 4.3 3.5 - 5.0 g/dL [facility] Alkaline Phosphatase 80 39 - 117 U/L [facility] Blood Venous blood specimen / Unknown 03/25/2025 8:44 AM EDT 03/25/2025 8:44 AM EDT [facility] LAB BLOOD ORDERABLES Final Resul t Performing Organization Address [facility] Co de Phone Number [facility] [address] [place] [phone] * Hepatitis Panel, General (02/17/2024 10:49 AM EDT) Hepatitis A IgM Nonreactive Nonreactive [facility] Comment:IgM antibodies to GREER V not detected; does not exclude earlyacute or recovered HAV infection. ~Hepatitis B Surface Antibody NONREACTIVE Nonreactive [facility] Comment:Nonreactive: < 8.00 mIU/mL Hepatitis B Core Antibody Nonreactive Nonreactive [facility] Hepatitis C Antibody Nonreactive Nonreactive [facility] Comment:Antibodies to HCV no t detected; does not exclude early acuteHCV infection. Hepatitis B Surface Ag Negative Negative [facility] 02/17/2024 10:4 9 AM EDT 02/17/2024 10:49 AM EDT Generic External Data Provider LAB BLOOD ORDERAB LES Final Result Performing Organization Address City/[facility]/ZIP Co de Phone Number [facility] [address] [place] [phone] * Hm Colonoscopy (12/18/2019) Colonoscopy Normal Normal 12/18/2019 Historical Provider MD HEALTH MAINTENANCE Final Result * HIV AB/AG [...] of detection of this assay. The [employer] HIV Ag/Ab Combo assay result and supplemental assay results should be interpreted in conjunction with the patient's clinical presentation, history and other laboratory results. If the results are inconsistent with clinical evidence, additional testing is suggested to confirm the result. 09/17/2019 9:08 AM EST Sasha Suarez NP HISTORICAL/NON ORDERABLE LABS Fi nal Result [facility] [address] from Last 3 Months or Most Recently Relevant to Health Maintenance Insurance [facility] C3 Care Teams Padder Relationship Specialty Start Date End Date Gareth Mo ANP [address] [place] [address] PCP - General Family Medicine 06/03/21 Cecilia Hunter Machine Made Shoe Unit WorkerBraille Typist 07/26/24
== END 2025-06-05 13:54 | disposition home or self-care (01) ==
LOC: HO.RESP 13:53
PROVIDERS: PCP Nurse Practitioner Primary Care; Visit Provider Nurse Practitioner Primary Care
DX: J45.40 Moderate persistent asthma, uncomplicated (principal)
CPT/HCPCS: 94010; 94640; 94727; 94729

== ENCOUNTER → 2025-06-05 13:57 | Outpatient (BNV) | payer MEDICAID, SELFPAY | PROVIDERS: PCP Nurse Practitioner Primary Care; Visit Provider Internal Medicine Pulmonary Disease | DX: J98.4 Other disorders of lung (principal) | CPT/HCPCS: 94060; 94727; 94729 ==

== ENCOUNTER 2025-08-12 12:18 | Outpatient (REF) | payer MEDICAID, SELFPAY ==
--- NOTE | ~2025-08-12 | CT_ITS ---
EXAMINATION: CT ABDOMEN AND PELVIS WITH CONTRAST CLINICAL INFORMATION: R14.0 - Abdominal distension (gaseous) COMPARISON: February 12, 2023 TECHNIQUE: Multidetector volumetric images were obtained from the superior aspect of the liver through the pubic symphysis following administration 85 mL of Omnipaque 350 intravenous contrast. Sagittal and coronal reformatted images were obtained on the technologist's workstation. Oral contrast: No This CT examination was performed using dose optimization techniques as appropriate, variously including the following: *Automated exposure control *Adjustment of mA and/or kV according to patient size (this includes techniques or standardized protocols for targeted exams where dose is matched to indication/reason for exam; i.e. extremities or head) *Use of iterative Reconstruction technique FINDINGS: LUNG BASES: Atelectasis present in the posterior right lung base. LIVER, GALLBLADDER, AND BILIARY TREE: Mild diffuse fatty changes are present throughout the liver with focal sparing along the gallbladder fossa. The gallbladder is unremarkable with no evidence of radiopaque gallstones, gallbladder wall thickening, or obvious pericholecystic inflammatory changes. PANCREAS: Unremarkable. SPLEEN: Punctate calcified granulomas noted in the dome of the spleen. ADRENAL GLANDS: Unremarkable. KIDNEYS AND URETERS: Simple Renal cyst is again identified in the upper pole right kidney. BLADDER: Unremarkable. GASTROINTESTINAL TRACT: Numerous pseudodiverticula are again identified in the descending and sigmoid colon without evidence of wall thickening or fat stranding. There are also a few pseudodiverticula in the right colon. The appendix is mostly gas-filled and thin-walled. ABDOMINAL WALL: Small umbilical hernia contains adipose tissue. LYMPH NODES: Normal. VASCULAR: Mild atherosclerotic ossification is visible in the aorta and femoral arteries. PELVIC VISCERA: Unremarkable. OSSEOUS STRUCTURES: Unremarkable. CT/CT abdomen pelvis w IV con IMPRESSION: Diverticulosis is again identified in the cecum, as well as the descending and sigmoid colon without evidence of active inflammation or infection. Hepatic steatosis. Fleischner guidelines were followed. Electronically signed by: Jose Poole MD 08/12/2025 01:26 PM EST
[2025-08-12] MEDS: iohexoL 350 MG/ML 100 ML INFUS..BTL IV (13:14)
[2025-08-12 14:54] LABS: Creatinine POC 1.2 mg/dL (0.5-1.4); GFR POC > 60
--- OUTSIDE RECORDS SUMMARY | 2025-08-12 15:30 | XMS_ITS | Encounter Summary ---
Author Organization [employer] Address [address] [facility] 7t [place] [address] Care Team Providers Care Console Manager Name Role Phone Gareth Mo Primary Care Provider [phone] Encounter Details Date Type Department Care Team ([facility] Contact Info) Description 08/12/2025 Orders Only [facility] External Provider, [facility] Social History Tobacco Use Types Packs/Day Years [...] Description 08/22/2025 10:30 AM EST Office Visit [facility] [address] [place], [place] [phone] TarkaAndreia, OD [address] [place] [address] documented as of this encounter Procedures Procedure Name Priority Date/Time Associated Diagnosis Comments CT ABDOMEN PELVIS W CONTRAST Routine 08/12/2025 12:54 PM EST POCT CREATININE GFR Routine 08/12/2025 1 2:51 PM EST documented in this encounter Results * CT Abdomen Pelvis w/ Contrast (08/12/2025 12:54 PM EST) Anatomical Region Laterality Modality Body, Pelvis, Abdomen Computed T omography 08/12/2025 12:5 4 PM EST Narrative 08/12/2025 1:29 PM EST [address] [address] [address] Scan Report Signed Patient: Ministerio Hernandez MR#: [id number] : 1965 Acct:[id number] Age/Sex: 60 / M ADM Date: 08/12/25 Loc: HO.CT Attending Dr: Asad Lee MD Ordering Physician: Asad Lee MD Date of Service: 08/12/25 Procedure(s): CT abdomen pelvis w IV con Accession Number(s): [id number] cc: Asad Lee MD; GARETH MO NP Report Number: [id number]: Total DLP = 456.00 mGy-cm Reason for Exam: R14.0 - Abdominal distension (gaseous) EXAMINATION: CT ABDOMEN AND PELVIS WITH CONTRAST CLINICAL INFORMATION: R14.0 - Abdominal distension (gaseous) COMPARISON: February 12, 2023 TECHNIQUE: Multidetector volumetric images were obtained from the superior aspect of the liver through the pubic symphysis following administration 85 mL of Omnipaque 350 intravenous contrast. Sagittal and coronal reformatted images were obtained on the technologist's workstation. Oral contrast: No This CT examination was performed using dose optimization techniques as appropriate, variously including the following: *Automated exposure control *Adjustment of mA and/or kV according to patient size (this includes techniques or standardized protocols for targeted exams where dose is matched to indication/reason for exam; i.e. extremities or head) *Use of iterative Reconstruction technique FINDINGS: LUNG BASES: Atelectasis present in the posterior right lung base. LIVER, GALLBLADDER, AND BILIARY TREE: Mild diffuse fatty changes are present throughout the liver with focal sparing along the gallbladder fossa. The gallbladder is unremarkable with no evidence of radiopaque gallstones, gallbladder wall thickening, or obvious pericholecystic inflammatory changes. PANCREAS: Unremarkable. SPLEEN: Punctate calcified granulomas noted in the dome of the spleen. ADRENAL GLANDS: Unremarkable. KIDNEYS AND URETERS: Simple Renal cyst is again identified in the upper pole right kidney. BLADDER: Unremarkable. GASTROINTESTINAL TRACT: Numerous pseudodiverticula are again identified in the descending and sigmoid colon without evidence of wall thickening or fat stranding. There are also a few pseudodiverticula in the right colon. The appendix is mostly gas-filled and thin-walled. ABDOMINAL WALL: Small umbilical hernia contains adipose tissue. LYMPH NODES: Normal. VASCULAR: Mild atherosclerotic ossification is visible in the aorta and femoral arteries. PELVIC VISCERA: Unremarkable. OSSEOUS STRUCTURES: Unremarkable. CT/CT abdomen pelvis w IV con IMPRESSION: Diverticulosis is again identified in the cecum, as well as the descending and sigmoid colon without evidence of active inflammation or infection. Hepatic steatosis. Fleischner guidelines were followed. Electronically signed by: Jose Poole MD 08/12/2025 01:26 PM [facility] Dictated By: Jose Poole MD Signed By: <Electronically signed by Jose Poole MD in OV> 08/12/25 1326 DD/ 1254 TD/TT: 08/12/25 1314 Textile Supervisor: Procedure Note Hiram, Image - 08/12/[address] [address] [address] Scan Report Signed Patient: Ministerio Hernandez AMR#: [id number] : 1965Acct:[id number] Age/Sex: 60 / MADM Date: 08/12/25 Loc: HO.CT Attending Dr: Asad Lee MD Ordering Physician: Asad Lee MD Date of Service: 08/12/25 Procedure(s): CT abdomen pelvis w IV con Accession Number(s): [id number] cc: Asad Lee MD; GARETH MO NP Report Number: [id number]: Total DLP = 456.00 mGy-cm Reason for Exam: R14.0 - Abdominal distension (gaseous) EXAMINATION: CT ABDOMEN AND PELVIS WITH CONTRAST CLINICAL INFORMATION: R14.0 - Abdominal distension (gaseous) COMPARISON: February 12, 2023 TECHNIQUE: Multidetector volumetric images were obtained from the superior aspect of the liver through the pubic symphysis following administration 85 mL of Omnipaque 350 intravenous contrast. Sagittal and coronal reformatted images were obtained on the technologist's workstation. Oral contrast: No This CT examination was performed using dose optimization techniques as appropriate, variously including the following: *Automated exposure control *Adjustment of mA and/or kV according to patient size (this includes techniques or standardized protocols for targeted exams where dose is matched to indication/reason for exam; i.e. extremities or head) *Use of iterative Reconstruction technique FINDINGS: LUNG BASES: Atelectasis present in the posterior right lung base. LIVER, GALLBLADDER, AND BILIARY TREE: Mild diffuse fatty changes are present throughout the liver with focal sparing along the gallbladder fossa. The gallbladder is unremarkable with no evidence of radiopaque gallstones, gallbladder wall thickening, or obvious pericholecystic inflammatory changes. PANCREAS: Unremarkable. SPLEEN: Punctate calcified granulomas noted in the dome of the spleen. ADRENAL GLANDS: Unremarkable. KIDNEYS AND URETERS: Simple Renal cyst is again identified in the upper pole right kidney. BLADDER: Unremarkable. GASTROINTESTINAL TRACT: Numerous pseudodiverticula are again identified in the descending and sigmoid colon without evidence of wall thickening or fat stranding. There are also a few pseudodiverticula in the right colon. The appendix is mostly gas-filled and thin-walled. ABDOMINAL WALL: Small umbilical hernia contains adipose tissue. LYMPH NODES: Normal. VASCULAR: Mild atherosclerotic ossification is visible in the aorta and femoral arteries. PELVIC VISCERA: Unremarkable. OSSEOUS STRUCTURES: Unremarkable. CT/CT abdomen pelvis w IV con IMPRESSION: Diverticulosis is again identified in the cecum, as well as the descending and sigmoid colon without evidence of active inflammation or infection. Hepatic steatosis. Fleischner guidelines were followed. Electronically signed by: Jose Poole MD 08/12/2025 01:26 PM EST Dictated By: Jose Poole MD Signed By: <Electronically signed by Jose Poole MD in OV> 08/12/25 1326 DD/ 1254 TD/TT: 08/12/25 1314 Textile Supervisor: [facility] External Provider IMG CT PROCEDURES Edited Result - Final * POCT Creatinine GFR (08/12/2025 12:51 PM EST) POCT Creatinine 1.2 0.5 - 1.4 mg/dL [facility] GFR POC >60 [facility] Comment:Chronic Kidney Disea se: Estimated GFR < 60 mL/min/1.71t6Aohtcb Kidney Disease: Estimated GFR < 15 mL/min/1.73m2 08/12/2025 12:5 1 PM EST 08/12/2025 2:53 PM EST Narrative [facility] - 08/12/2025 2:54 PM EST [id number] Generic External Data Provider LAB POINT OF CARE TEST DOCKED DEVICE ORDERABLES Final Result [facility] [address] [place] [phone] documented in this encounter Visit Diagnoses Not on filedocumented in this encounter Additional Health Concerns Assessment Noted Time PHQ-9 Depression Total Score: 15 04/22/ 025 8:48 AM EDT documented as of this encounter Care Teams Console Manager Relationship Specialty Start Date End Date Gareth Mo ANP [address] [place] [address] PCP - General Family Medicine 06/03/21 Cecilia Hunter Blueprint AssemblerBooky 07/26/24 documented as of this encounter
--- OUTSIDE RECORDS SUMMARY | 2025-08-12 15:30 | XMS_ITS | Encounter Summary ---
Author Organization [employer] Address [address] [facility] [address] [place] [address] Care Team Providers Care Compensation Supervisor Name Role Phone Rayne Bolivar Primary Care Provider [phone] Encounter Details Date Type Department Care Team ([facility] st Contact Info) Description 08/08/2025 Telephone [facility] [address] [place], [place] [phone] Rayne Bolivar ANP [address] [place] [address] Social History Tobacco Use Types Packs/Day Years [...] AM EDT documented as of this encounter Miscellaneous Notes * Telephone Encounter - Kalie Cotton - 08/08/2025 3:25 PM EDT PCP Designee has received and reviewed Care Plan from CP: Expedition Supervisor: Cecilia Hunter Contact Information: [phone] Care Plan scanned into patient???s EHR and notification sent to PCP. documented in this encounter Plan of Treatment Upcoming Encounters Date Type Department Care Team ([facility] st Contact Info) Description 08/22/2025 10:30 AM EST Office Visit [facility] [address] [place] [address] Andreia Michael, OD [address] [place] [address] documented as of this encounter Visit Diagnoses Not on filedocumented in this encounter Additional Health Concerns Assessment Noted Time PHQ-9 Depression Total Score: 15 025 8:48 AM EDT documented as of this encounter Care Teams Compensation Supervisor Relationship Specialty Start Date End Date Rayne Bolivar ANP [address] [place] [address] PCP - General Family Medicine 06/03/21 Cecilia Hunter Purification SupervisorManager Assurance 07/26/24 documented as of this encounter
--- OUTSIDE RECORDS SUMMARY | 2025-08-12 15:31 | XMS_ITS | Clinical Summary ---
Author Organization [employer] Address [address] [facility] [address] [place] [address] Care Team Providers Care Male Model Name Role Phone Gareth Mo Primary Care Provider Allergies Active Allergy Reactions Criticality Noted Date Comments Shellfish Protein-Containing Drug Products Anaphylaxis High 09/28/2021 Medications * This document contains information received from the source organization and may not represent a complete record from that organization. acetaminophen (Tylenol) 500 MG tablet 03/03/20 21 Active cholecalciferol (Vitamin D-3) 1.25 MG (97816 UT) capsule 09/17/20 19 Active EPINEPHrine (Epipen) 0.3 MG/0.3ML injection syringe Inject 0.3 mg into the muscle. 08/10/20 21 Active albuterol 0.63 MG/3ML nebulizer [...] not swallow. 1 each 11 06/25/20 24 Active cyclobenzaprine (Flexeril) 10 MG tabletIndication s:Other [...] tablet 11 11/14/19 25 026 Active Umeclidinium [place] (Incruse Ellipta) 62.5 MCG/ACT aerosol powderIndication s:Moderate persistent asthma without complication Inhale 1 Act (62.5 mcg) Once per day. 30 each 2 03/13/20 25 Active pantoprazole (ProtoNix) 20 MG EC tabletIndication s:Gastroesophage al reflux disease with esophagitis without hemorrhage,Anxie ty Take 1 tablet (20 mg) by mouth before breakfast. 90 tablet 2 03/13/20 25 Active hydroCHLOROthiaz yahaira 12.5 MG tabletIndication s:Primary hypertension TAKE 1 TABLET BY MOUTH EVERY DAY 90 tablet 1 07/30/20 25 Active hydroCHLOROthiaz yahaira 12.5 MG tabletIndication s:Primary hypertension Take 1 tablet (12.5 mg) by mouth Once per day. 90 tablet 05/02/20 25 025 Discontinued Active Problems Problem Noted Date Diagnosed Date Severe episode of recurrent major depressive disorder, with psychotic features ([facility]/HCC) 04/17/2025 Degeneration of intervertebr al disc of [...] weeks and nicotrol prn Seronegative rheumatoid arthritis (CMS/HCC) 01/08 Overview (02/20/2024): Diagnosed via Dr. Diane, [facility] 01/2023 methotrexate stopped 02/2023 d/t transaminitis though was effective. Hydroxychloroquine can interact w/ keppra. Started on sulfasalazine 12/2023 Assessment & Plan (02/24/2023 6:50 PM EDT): Following w wraparound facilitator Off meds -not taking methotrexate x last [...] osteoarthritis of left knee 11/11/2022 Seizure disorder (CMS/HCC) 11/11/2022 Assessment & Plan (02/24/2023 6:38 PM [...] already schedule to f asthma control Encounters Date Type Department Care Team Description 08/12/2025 Orders Only [facility] External Provider, [facility] 08/08/2025 Telephone [facility] [address] [place] [address] Gareth Mo ANP 07/29/2025 Refill [facility] [address] [place] [address] Gareth Mo ANP Primary hypertension 07/01/2025 Telephone [facility] [address] [place] [address] Gareth Mo ANP No Show 06/28/2025 Telephone [facility] [address] [place] [address] Gareth Mo ANP chart prep 06/25/2025 Orders Only [facility] [address] [place] [address] Gareth Mo ANP 06/25/2025 Telephone [facility] [address] [place] [address] Gareth Mo ANP Referral 06/25/2025 Telephone [facility] [address] [place] [phone] Gareth Mo ANP Med Refill 06/11/2025 Telephone [facility] [address] [place] [phone] Gareth Mo ANP 06/04/2025 Orders Only [facility] External Provider, [facility] 05/21/2025 11:00 AM EDT Clinical Support [facility] [address] [place] [phone] Rosmery Alvarado, GRANT Primary hypertension 05/21/2025 Travel from Last 3 Months Immunizations Immunization Administration [...] Description 08/22/2025 10:30 AM EST Office Visit [facility] [address] [place] [address] Andreia Michael, OD [address] [place] [address] Health Maintenance Due Date Last Done Comments CT Colonography 1966 FIT DNA/Cologuard 1966 FIT 1965 FOBT 1966 Lipid Panel 1966 Sigmoidoscopy 1966 Zoster Vaccines (1 of 2) 2016 Hepatitis B Vaccines (3 of 3 - 19+ 3-dose series) 05/14/2020 12/20/2019, 11/14/2019 Colonoscopy 12/17/2024 12/18/2019 Colorectal Cancer Screening 12/17/2024 COVID-19 Vaccine ( - season) 2025 11/11/2022, 10/05/2021, 01/14/2021 Influenza Vaccine (#1) 2025 , 11/11/2022, 08/10/2021, [...] GFR Routine 08/12/2025 1 2:51 PM EST LDCT LUNG SCREENING Routine 06/04/2025 7 :09 AM EDT HEPATITIS PANEL, GENERAL Routine 02/17/2024 10:49 AM EDT HM COLONOSCOPY Routine 12/18/2019 ZZZ HISTORICAL HIV AB/AG Routine 09/17/2019 9:08 AM EST from Last 3 Months or Most Recently Relevant to Health Maintenance Results * CT Abdomen Pelvis w/ Contrast (08/12/2025 12:54 PM EST) Anatomical Region Laterality Modality Body, Pelvis, Abdomen Computed T omography 08/12/2025 12:5 4 PM EST Narrative 08/12/2025 1:29 PM EST [address] [address] [address] Scan Report Signed Patient: Ministerio Hernandez MR#: [id number] : 1965 Acct:[id number] Age/Sex: 60 / M ADM Date: 08/12/25 Loc: HO.CT Attending Dr: Asad Lee MD Ordering Physician: Asad Lee MD Date of Service: 08/12/25 Procedure(s): CT abdomen pelvis w IV con Accession Number(s): [id number] cc: Asad Lee MD; GARETH MO NP Report Number: [id number]: Total DLP = 456.00 mGy-cm Reason for [...] by: Jose Poole MD 08/12/2025 01:26 PM [facility] Dictated By: Jose Poole MD Signed By: <Electronically signed by Jose Poole MD in OV> 08/12/25 1326 DD/ 1254 TD/TT: 08/12/25 1314 Compliance Professional: Procedure Note Donotuseinterpreter, Image - 08/12/[address] [place] [address] [address] Scan Report Signed Patient: Ministerio Hernandez AMR#: [id number] : 1965Acct:[id number] Age/Sex: 60 / MADM Date: 08/12/25 Loc: HO.CT Attending Dr: Asad Lee MD Ordering Physician: Asad Lee MD Date of Service: 08/12/25 Procedure(s): CT abdomen pelvis w IV con Accession Number(s): [id number] cc: Asad Lee MD; GARETH MO NP Report Number: [id number]: Total DLP = 456.00 mGy-cm Reason for [...] 08/12/25 1326 DD/ 1254 TD/TT: 08/12/25 1314 Compliance Professional: us [facility] External Provider IMG CT PROCEDURES Edited Result - Final * POCT Creatinine GFR (08/12/2025 12:51 PM EST) POCT Creatinine 1.2 0.5 - 1.4 mg/dL [facility] GFR POC >60 [facility] Comment:Chronic Kidney Disea se: Estimated GFR < 60 mL/min/[id number] Kidney Disease: Estimated GFR < 15 mL/min/1.73m2 08/12/2025 12:5 1 PM EST 08/12/2025 2:53 PM EST Narrative [facility] - 08/12/2025 2:54 PM EST [id number] us Generic External Data Provider LAB POINT OF CARE TEST DOCKED DEVICE ORDERABLES Final Result Performing Organization Address City/State/[facility] Co de Phone Number [facility] [address] [place] [phone] * CT Lung Screening Low dose (06/04/2025 7:09 AM EDT) Anatomical Region Laterality Modality Lung Computed Tomogra phy 06/04/2025 7:09 AM EDT Narrative 06/04/2025 7:41 AM EDT [address] [address] [address] Scan Report Signed Patient: Ministerio Hernandez MR#: [id number] : 1965 Acct:[id number] Age/Sex: 59 / M ADM Date: 06/04/25 Loc: HO.CT Attending Dr: Lizet Malone PA-C Ordering Physician: Lizet Malone PA-C Date of Service: 06/04/25 Procedure(s): CT lung screening Accession Number(s): [id number] cc: Lizet Malone PA-C; GARETH MO NP Report Number: [id number]: Total DLP = 54.00 mGy-cm EXAMINATION: CT [...] OV> 06/04/25 0738 DD/ 8 TD/TT: 06/04/25724 Compliance Professional: Procedure Note Donotuseinterpreter, Image - 06/04/[address] [place] [address] [address] Scan Report Signed Patient: Ministerio Hernandez [facility]#: [id number] : 1965Acct:[id number] Age/Sex: 59 / MADM Date: 06/04/25 Loc: HO.CT Attending Dr: Lizet Malone PA-C Ordering Physician: Lizet Malone PA-C Date of Service: 06/04/25 Procedure(s): CT lung screening Accession Number(s): [id number] cc: Lizet Malone PA-C; GARETH MO NP Report Number: [id number]: Total DLP = 54.00 mGy-cm EXAMINATION: CT [...] OV> 06/04/25 0738 DD/ 8 TD/TT: 06/04/25724 Compliance Professional: [facility] External Provider IMG CT PROCEDURES Final Result * Hepatitis Panel, General (02/17/2024 10:49 AM EDT) Hepatitis A IgM Nonreactive Nonreactive [facility] Comment:IgM antibodies to GREER V not detected; does not exclude earlyacute or recovered HAV infection. ~Hepatitis B Surface Antibody NONREACTIVE Nonreactive [facility] Comment:Nonreactive: < 8.00 mIU/mL Hepatitis B Core Antibody Nonreactive Nonreactive [facility] Hepatitis C Antibody Nonreactive Nonreactive [facility] Comment:Antibodies to HCV no t detected; does not exclude early acuteHCV infection. Hepatitis B Surface Ag Negative Negative [facility] 02/17/2024 10:4 9 AM EDT 02/17/2024 10:49 AM EDT Generic External Data Provider LAB BLOOD ORDERAB LES Final Result Performing Organization Address City/[facility]/ZIP Co de Phone Number [facility] [address] [place] [phone] * Hm Colonoscopy (12/18/2019) Colonoscopy Normal [...] of detection of this assay. The [employer] Programmer HIV Ag/Ab Combo assay result and supplemental assay results should be interpreted in conjunction with the patient's clinical presentation, history and other laboratory results. If the results are inconsistent with clinical evidence, additional testing is suggested to confirm the result. 09/17/2019 9:08 AM EST Sasha Suarez NP HISTORICAL/NON ORDERABLE LABS Fi nal Result [facility] [address] from Last 3 Months or Most Recently Relevant to Health Maintenance Insurance [facility] C3 Care Teams Male Model Relationship Specialty Start Date End Date Gareth Mo ANP [address] [place] [phone] PCP - General Family Medicine 06/03/21 Cecilia Hunter Sulfuric Acid Plant SupervisorCareer Technical Education Teacher 07/26/24
== END 2025-08-12 12:19 | disposition home or self-care (01) ==
LOC: HO.CT 12:18
PROVIDERS: PCP Nurse Practitioner Primary Care; Visit Provider Surgery
DX: R14.0 Abdominal distension (gaseous) (principal)
CPT/HCPCS: 74177; 82565; Q9967

== ENCOUNTER → 2025-08-12 12:19 | Outpatient (BNV) | payer MEDICAID, SELFPAY | PROVIDERS: PCP Nurse Practitioner Primary Care; Visit Provider Radiology Diagnostic Radiology | DX: K57.30 Diverticulosis of large intestine without perforation or abscess without bleeding (principal); K76.0 Fatty (change of) liver, not elsewhere classified | CPT/HCPCS: 74177 ==

== ENCOUNTER 2025-09-23 14:34 | Outpatient (AMB) | payer MEDICAID, SELFPAY ==
--- NOTE | 2025-09-23 15:04 | MHC.OFFVIS ---
Vital Signs 09/23/25 15:04 Height 5 ft 7 in Weight 191 lb 12.835 oz BMI 30.0 Intake Visit Reasons: Ct-Scan follow-up Intake Note: Patient is seen in office for CT scan results following on possible hernia. Pt c/o: admits to more pain compare to last visit, increase reflux specially after meals. CT:08/12/25 Border Measurer And Cutter Required: Yes Border Measurer And Cutter Language: Stonemason Supervisor Services: Border Measurer And Cutter Present Border Measurer And Cutter Name: Andreia WATSON Information Interpreted: non-clinical & clinical Lap Runner: Lap Runner Present Accompanied by: Self / Same As Patient Allergies shellfish derived Allergy (Severe, Verified 05/16/25 09:42) Anaphylaxis Medication List - Last Reconciled 09/23/25 by Asad Lee MD acetaminophen 1,000 mg PO Q6H PRN albuterol sulfate 90 mcg/actuation 2 inhalations inhalation Q4-6H PRN albuterol sulfate 1 amp inhalation Q4-6H PRN amlodipine 5 mg PO DAILY amlodipine 10 mg PO DAILY barium sulfate 2%(w/v) (Readi-Cat 2) 450 mL PO .twice cholecalciferol (vitamin D3) (Vitamin D3) 25 mcg PO DAILY diclofenac sodium 75 mg PO BID PRN [Epi E-Z Pen ] fluticasone propionate 110 mcg/actuation (Flovent HFA) 1 puff inhalation BID fluticasone propionate 50 mcg/actuation 2 sprays intranasal DAILY folic acid 1 mg PO DAILY ibuprofen 800 mg PO TID PRN oxycodone 5 mg PO Q6H PRN pantoprazole 20 mg PO QAM sulfasalazine 1 g (2 x 500 mg) PO BID [wrist splint wear at night & as much as possible throughout the day] HPI Comments Details: 60-year-old male patient returning for re-evaluation of his upper abdominal wall. He previously underwent a repair of the ventral hernia with mesh but now feels a lump slightly above this which he feels increases in size with lifting and causes discomfort when palpated. He also complains of severe reflux symptoms. He has not been seen by Gastroenterology yet. A recent CT abdomen and pelvis was performed to re-evaluate his abdominal wall. Review of the images do seem to indicate a possible with weakness at the site of his palpable lump in the midline suggestive of either a small fat containing ventral hernia or lipoma. Also noted is a hiatal hernia which certainly could explain his reflux symptoms. The images were reviewed in detail with the patient. He is requesting repair of this new ventral hernia. 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 HTN (hypertension) HLD (hyperlipidemia) GERD (gastroesophageal reflux disease) PUD (peptic ulcer disease) JAGJIT on CPAP Asthma Nicotine dependence, cigarettes, uncomplicated History of COVID-19 Depression Chronic knee pain Osteoarthritis of left knee Chronic back pain Degenerative disc disease, cervical Spondylosis of cervical spine Pain in right ankle and joints of right foot Surgical History History of ventral hernia repair History of left knee surgery History of cervical spinal surgery History of esophagogastroduodenoscopy (EGD) History of colonoscopy Family History Mother Osteoarthritis Father Alzheimer disease Social History Are you a primary memory care program director to a significant other at home: No Do you presently have visiting nurse or other home services: No Alcohol intake: never Patient Tobacco Use Status: Current everyday Tobacco user Tobacco use type: Cigarette Cigarette Packs Per Day: 2 Years Smoked: onset 14, 2ppd x 44yrs, 75+pyh Current occupational status: unemployed Current occupation: rt handed Review of Systems Const All systems reviewed & are unremarkable except as noted in HPI and below Physical Exam Vital Signs: BMI result Body Mass Index 30.0 Const General: comfortable Nutritional Appearance: well nourished Orientation/consciousness: patient oriented x3 Limitations: ambulation with cane Resp Effort & Inspection: normal respiratory effort GI Other: Soft, non distended, tender at the midline above the previous incision with an obvious bump noted on examination. This measures approximately 2 cm in diameter and does not seem to change with Valsalva maneuvers. Lump is not reducible. Abdomen image:  1. 1 cm palpable nodule which increases in size with Valsalva maneuvers consistent with a ventral hernia. 2. Previous incision upper abdomen. Skin Other: Warm, dry, no rash Neuro General: patient oriented x3 Extrem General: Yes no clubbing, cyanosis or edema Assessment & Plan Assessment & Plan (1) Hiatal hernia: Code(s): K44.9 - Diaphragmatic hernia without obstruction or gangrene Category: Medical Plan: Arrangements will be made for gastroenterology evaluation for further management of his reflux, hiatal hernia. (2) Ventral hernia: Code(s): K43.9 - Ventral hernia without obstruction or gangrene Category: Medical Qualifiers: Obstruction and gangrene presence: without obstruction or gangrene Qualified Code(s): K43.9 - Ventral hernia without obstruction or gangrene Plan I recommended repair of this small but symptomatic ventral hernia in the upper abdomen. After a review of the procedure, risks, and alternatives, he consents to repair of the ventral hernia with mesh. This will be scheduled as a short-stay surgery. Orders: Referrals General Surgery Procedure Notification K43.9 - Ventral hernia without obstruction or gangrene Coding Level of Care Code Est Pt Level 4 (81532) Diagnoses Hiatal hernia K44.9 Ventral hernia without obstruction or gangrene K43.9 Obstruction and gangrene presence: without obstruction or gangrene
--- OUTSIDE RECORDS SUMMARY | 2025-09-23 21:07 | XMS_ITS | Clinical Summary ---
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 acetaminophen (Tylenol) 500 MG tablet 1 Active cholecalciferol (Vitamin D-3) 1.25 MG (84861 UT) capsule 9 Active EPINEPHrine (Epipen) 0.3 MG/0.3ML injection syringe Inject 0.3 mg into the muscle. 1 Active albuterol 0.63 MG/3ML nebulizer solutionIndicatio [...] Do not swallow. 1 each 11 4 Active cyclobenzaprine (Flexeril) 10 MG tabletIndications :Other [...] tablet 11 5 11/14/19 26 Active Umeclidinium [place] (Incruse Ellipta) 62.5 MCG/ACT aerosol powderIndications :Moderate persistent asthma without complication Inhale 1 Act (62.5 mcg) Once per day. 30 each 2 5 Active pantoprazole (ProtoNix) 20 MG EC tabletIndications :Gastroesophageal reflux disease with esophagitis without hemorrhage,[place] y Take 1 tablet (20 mg) by mouth before breakfast. 90 tablet 2 5 Active hydroCHLOROthiazi de 12.5 MG tabletIndications :Primary hypertension TAKE 1 TABLET BY MOUTH EVERY DAY 90 tablet 1 5 Active Active Problems Problem Noted Date Diagnosed Date Severe episode of recurrent major depressive disorder, with psychotic features (CMS/HCC) 04/17/2025 Degeneration of intervertebr al disc of [...] weeks and nicotrol prn Seronegative rheumatoid arthritis ([facility]) 01/08 Overview (02/20/2024): Diagnosed via Dr. Diane, [facility] 01/2023 methotrexate stopped 02/2023 d/t transaminitis though was effective. Hydroxychloroquine can interact w/ keppra. 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 Off meds -not taking methotrexate x last [...] Encounters Date Type Department Care Team Description 09/16/2025 Telephone [facility] [address] [facility] [place] [address] Andreia Michael, OD 08/22/2025 10:30 AM EST Office Visit [facility] [address] [facility], [place] [phone] Andreia Michael, OD Combined forms of age-related cataract of both eyes (Primary Dx); Presbyopia; Disorder of choroid; Pseudopapilledema of both optic discs; Choroidal fold of both eyes 08/22/2025 Travel 08/12/2025 Orders Only [facility] External Provider, [facility] 08/08/2025 Telephone [facility] [address] [place] [address] Gareth Mo ANP 07/29/2025 Refill [facility] [address] [place] [id number] Gareth Mo ANP Primary hypertension 07/01/[address] [address] Gareth Mo ANP No Show 06/28/[address] [address] Gareth Mo ANP chart prep 06/25/2025 Orders Only [address] [address] Gareth Mo ANP 06/25/[address] [address] Gareth Mo ANP Referral 06/25/[address] [address] Gareth Mo ANP Med Refill from Last 3 Months Immunizations Immunization Administration Dates Next Due Hep A, Adult 11/14/2019 Hep B, adult 12/20/2019,11/14/2019 Influenza injectable quadriv alent preservative free 11/11/2022,08/10/2021,08/26/2020,09/14 Influenza, IIV3, injectable 08/04/2010 Influenza, seasonal, injecta ble, preservative free 06/25/2024 Ajnie SARS-CoV-2 Vaccination 01/14/2021 Pfizer Covid-19 Vaccine 12+ [...] Care Team (Late st Contact Info) Description 02/20/2026 9:30 AM EDT Office Visit [facility] [address] [place] [address] Alec Andreia, OD [address] [place] [address] Health Maintenance Due Date Last Done Comments CT Colonography 1966 FIT DNA/Cologuard 1966 FIT 1966 FOBT 1966 Lipid Panel 1966 Sigmoidoscopy 1966 RSV Patients and Patients Aged 60 years or older (1 - Risk 50-74 years 1-dose series) 2016 Zoster Vaccines (1 of 2) 2016 Hepatitis [...] Alcohol/Substance Use Screening 05/02/2026 05/02/2025 Tobacco Screening 08/23/2026 08/23/2025 DTaP/Tdap/Td Vaccines (2 - Td or Tdap) 09/14/2029 09/14/2019 HIV Screening Completed 09/17/2019 Hepatitis A Vaccines [...] Procedure Name Priority Date/Time Associated Diagnosis Comments OCT, RETINA - OU - BOTH EYES Routine 08/22/2025 10:30 AM EST Choroidal fold of both eyes CT ABDOMEN PELVIS W CONTRAST Routine 08/12/2025 12:54 PM EST POCT CREATININE GFR Routine 08/12/2025 1 2:51 PM EST HEPATITIS PANEL, GENERAL Routine 02/17/2024 10:49 AM EDT HM COLONOSCOPY Routine 12/18/2019 ZZZ HISTORICAL HIV AB/AG Routine 09/17/2019 9:08 AM EST from Last 3 Months or Most Recently Relevant to Health Maintenance Results * OCT, Retina - OU - Both Eyes (08/22/2025 10:30 AM EST) Narrative EbonyreneeAndreia, OD - 08/30/2025 8:56 AM EST Images from the original result were not included. OCT MACULA INTERPRETATION Reliability: OD: SS 44 - adequate, HD scans also acquired OS: SS 49 - adequate, HD scans also acquired Measurements: OD OS Macula Thickness 225 microns 220 microns Test findings: OD: BASELINE Nasal choroidal thickening with pachyvessels. Horizontal choroidal folds throughout posterior pole. Temporal optic nerve there are intraretinal cysts with RPE atrophy and underlying choroidal hypertransmissability. A small serous detachment is also present in this region. (+) Thick rim tissue/RNFL thickening. OS: BASELINE Nasal choroidal thickening with pachyvessels. Horizontal choroidal folds throughout posterior pole. Temporal to the optic nerve there are some small PEDs temporal optic nerve, 1 intraretinal cyst superior temporal and RPE atrophy with underlying choroidal hypertransmissability. 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 Ordering neuroimaging to rule out compressive lesion. us Andreia Michael OD OPHTH TOMOGRAPHY Edited Result - Final * CT Abdomen Pelvis w/ Contrast (08/12/2025 12:54 PM EST) Anatomical Region Laterality Modality Body, Pelvis, Abdomen Computed T omography 08/12/2025 12:5 4 PM EST Narrative 08/12/2025 1:29 PM EST [place] [address] CT Scan Report Signed Patient: Ministerio Hernandez MR#: [id number] : 1965 Acct:[id number] Age/Sex: 60 / M ADM Date: 08/12/25 Loc: HO.CT Attending Dr: Asad Lee MD Ordering Physician: Asad Lee MD Date of Service: 08/12/25 Procedure(s): CT abdomen pelvis w IV con Accession Number(s): [id number] cc: Asad Lee MD; GARETH MO NP Report Number: [id number]: Total DLP = 456.00 mGy-cm Reason for [...] by: Jose Poole MD 08/12/2025 01:26 PM [facility] Dictated By: Jose Poole MD Signed By: <Electronically signed by Jose Poole MD in OV> 08/12/25 1326 DD/ 1254 TD/TT: 08/12/25 1314 Senior Planning Manager: Procedure Note Donotuseinterpreter, Image - 08/12/[address] [address] [address] Scan Report Signed Patient: Ministerio Hernandez [facility]#: [id number] : 1965Acct:[id number] Age/Sex: 60 / MADM Date: 08/12/25 Loc: HO.CT Attending Dr: Asad Lee MD Ordering Physician: Asad Lee MD Date of Service: 08/12/25 Procedure(s): CT abdomen pelvis w IV con Accession Number(s): [id number] cc: Asad Lee MD; GARETH MO NP Report Number: [id number]: Total DLP = 456.00 mGy-cm Reason for [...] 08/12/25 1326 DD/ 1254 TD/TT: 08/12/25 1314 Senior Planning Manager: [facility] External Provider IMG CT PROCEDURES Edited Result - Final * POCT Creatinine GFR (08/12/2025 12:51 PM EST) POCT Creatinine 1.2 0.5 - 1.4 mg/dL [facility] GFR POC >60 [facility] Comment:Chronic Kidney Disea se: Estimated GFR < 60 mL/min/1.99l4Nywidj Kidney Disease: Estimated GFR < 15 mL/min/1.73m2 08/12/2025 12:5 1 PM EST 08/12/2025 2:53 PM EST Narrative [facility] - 08/12/2025 2:54 PM EST [id number] Generic External Data Provider LAB POINT OF CARE TEST DOCKED DEVICE ORDERABLES Final Result [facility] [address] [place] [phone] * Hepatitis Panel, General (02/17/2024 10:49 AM EDT) Hepatitis A IgM Nonreactive Nonreactive [facility] Comment:IgM antibodies to GREER V not detected; does not exclude earlyacute or recovered HAV infection. ~Hepatitis B Surface Antibody NONREACTIVE Nonreactive [facility] Comment:Nonreactive: < 8.00 mIU/mL Hepatitis B Core Antibody Nonreactive Nonreactive [facility] Hepatitis C Antibody Nonreactive Nonreactive [facility] Comment:Antibodies to HCV no t detected; does not exclude early acuteHCV infection. Hepatitis B Surface Ag Negative Negative [facility] 02/17/2024 10:4 9 AM EDT 02/17/2024 10:49 AM EDT us Generic External Data Provider LAB BLOOD ORDERAB LES Final Result Performing Organization Address [facility]/ZIP Co de Phone Number [facility] [address] [place] [phone] * Hm Colonoscopy (12/18/2019) Colonoscopy Normal [...] of detection of this assay. The [facility] HIV Ag/Ab Combo assay result and supplemental assay results should be interpreted in conjunction with the patient's clinical presentation, history and other laboratory results. If the results are inconsistent with clinical evidence, additional testing is suggested to confirm the result. 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
== END 2025-09-23 15:17 | disposition home or self-care (01) ==
LOC: HO.HGS 14:35
PROVIDERS: PCP Nurse Practitioner Primary Care; Visit Provider Surgery
DX: K44.9 Diaphragmatic hernia without obstruction or gangrene (principal); K43.9 Ventral hernia without obstruction or gangrene
CPT/HCPCS: 99214

== ENCOUNTER → 2025-09-23 14:34 | Outpatient (BNVA) | payer MEDICAID, SELFPAY | PROVIDERS: PCP Nurse Practitioner Primary Care; Visit Provider Surgery | DX: K44.9 Diaphragmatic hernia without obstruction or gangrene (principal); K43.9 Ventral hernia without obstruction or gangrene | CPT/HCPCS: 99212 ==